=== PATIENT | female | born 1995 | race Caucasian/White ===

== ENCOUNTER 2016-07-26 10:52 | Emergency (ER) | payer OTHER ==
[~2016-07-26] VITALS: Ht 165.1 cm; Wt 61.3 kg
[~2016-07-26 10:52] MED LIST: IBUP-1050 PO
[2016-07-26 10:58] VITALS: Ht 165.1 cm; Wt 61.3 kg
[2016-07-26] MEDS ORDERED: BCPILLS PO (11:04)
[2016-07-26] MEDS ORDERED: ACETAMINOPHEN 500 MG TAB PO STA (11:08)
[2016-07-26] MEDS ORDERED: KETOROLAC TROMETHAMINE 30 MG/ML VIAL IV STA (11:08)
[2016-07-26] MEDS ORDERED: SODIUM CHLORIDE 0.9% 1000ML 1,000 ML IV STA (11:26)
--- NOTE | 2016-07-26 11:30 | DIAGNOSTIC IMAGING REPORT ---
CHEST ONE VIEW PORTABLE CLINICAL HISTORY: Chest pain. COMPARISON STUDY: Chest radiograph September 04, 2014. FINDINGS: Lung volumes are normal. Lungs are clear. There is no pneumothorax or pleural effusion. Cardiac size is normal. Mediastinal contours are normal. There is no evidence of pulmonary edema. IMPRESSION: No acute cardiopulmonary findings. Electronically signed by: Curly Bronson M.D. 07/26/2016 11:29 AM Dictated Date/Time: 07/26/2016 11:28 AM
[2016-07-26 11:43] VITALS: O2SAT 99
[2016-07-26 11:55] LABS: HEMATOCRIT 40.4 % (37-47); MEAN CELL VOLUME 93.3 fL (80-100); MEAN CORPUSCULAR HEMOGLOBIN 32.1 pg (25-34); MEAN CORPUSCULAR HGB CONC 34.4 g/dl (32-36); MEAN PLATELET VOLUME 9.6 fL (7.4-10.4); PLATELET COUNT 204 K/uL (130-400); RED BLOOD COUNT 4.33 M/uL (4.2-5.4); WHITE BLOOD COUNT 12.18 K/uL (4.8-10.8)
[2016-07-26 12:12] LABS: BASO % 0.1 %; BASO ABS # 0.01 K/uL (0-0.2); COMPLETE YES; IG% 0.2 %; LYMPH % 4.1 %; MONO % 3.4 %; NEUT % 92.2 %; TOXIC GRANULATION 1+
[2016-07-26 12:25] LABS: ALT/SGPT 22 U/L (12-78); AST/SGOT 19 U/L (15-37); BLOOD UREA NITROGEN 7 mg/dl (7-18); BUN/CREATININE RATIO 7.8 (10-20); CALCIUM 8.8 mg/dl (8.5-10.1); CARBON DIOXIDE 21 mmol/L (21-32); CHLORIDE 104 mmol/L (98-107); CREATININE 0.86 mg/dl (0.60-1.20); GLUCOSE 92 mg/dl (70-99); POTASSIUM 3.5 mmol/L (3.5-5.1); PREG INTERNAL NEGATIVE QC NEG CLEAR BACKGROUND; PREG INTERNAL POSITIVE QC POS CONTROL LINE; SODIUM 138 mmol/L (136-145)
[2016-07-26 12:30] LABS: ALKALINE PHOSPHATASE 43 U/L (45-117); CKMB/CK RATIO 0.6 (0-3.0)
[2016-07-26] MEDS ORDERED: OPTIRAY 320 IV PRN (13:00)
[2016-07-26 13:35] LABS: URINE APPEARANCE CLOUDY (CLEAR); URINE BILIRUBIN NEG (NEG); URINE COLOR YELLOW; URINE EPITHELIAL CELL AUTO >30 /lpf (0-5); URINE NITRITE NEG (NEG); URINE SPECIFIC GRAVITY 1.016 (1.000-1.030); UROBILINOGEN NEG (NEG); ZZUR CULT IF INDIC CLEAN CATCH YES
[2016-07-26 13:36] LABS: MANUAL MICROSCOPIC REQUIRED? NO; REVIEW REQ? NO
--- NOTE | 2016-07-26 13:55 | DIAGNOSTIC IMAGING REPORT ---
CT ANGIOGRAPHY OF THE CHEST, PULMONARY EMBOLUS PROTOCOL CLINICAL HISTORY: Left sided chest pain and fever. Oral contraceptives. COMPARISON STUDY: Chest CT March 20, 2013 and chest radiograph performed earlier today. TECHNIQUE: Following IV administration of 76 mL of Optiray-320, helical axial images of the chest were obtained utilizing the pulmonary embolus protocol. Maximal intensity projections and sagittal and coronal reformats were viewed on an independent 3D workstation. IV contrast was administered without complication. CT DOSE: 189.22 mGy.cm FINDINGS: No pulmonary emboli are identified although the segmental and subsegmental pulmonary arteries are suboptimally assessed due to respiratory motion. The size of the heart is normal. There is no evidence of thoracic aortic dissection. No consolidation is identified to suggest pneumonia. There is no pneumothorax or pleural effusion. The bony thorax and upper abdomen are unremarkable. No enlarged thoracic lymph nodes are present. IMPRESSION: 1. No pulmonary emboli identified although the segmental and subsegmental pulmonary arteries are suboptimally assessed due to respiratory motion. 2. No acute intrathoracic findings. No consolidation to suggest pneumonia. Electronically signed by: Curly Bronson M.D. 07/26/2016 1:53 PM Dictated Date/Time: 07/26/2016 1:45 PM
[2016-07-26 14:30] VITALS: O2SAT 99
[2016-07-26 15:43] VITALS: TEMP 37.2
[2016-07-26] MEDS ORDERED: OXYCODONE HCL IR 5 MG TAB (IMMEDIATE RELEASE) PO STA (15:57)
[2016-07-26] MEDS ORDERED: AMOX875T PO (16:00)
[2016-07-26] MEDS ORDERED: AMOXICILLIN/CLAVULANATE TAB 875 MG TAB PO ONE (16:00)
[2016-07-26] MEDS ORDERED: OXYCODONE IR HOME PACK PO ONE (16:00)
[2016-07-26 16:23] VITALS: BP 112/68; PULSE 108
--- NOTE | 2016-07-26 18:59 | EMERGENCY ROOM VISIT NOTE ---
History Report prepared by Marie: Uriel Grijalva Under the Supervision of: Dr. Neal Espinosa M.D. First contact with patient: 11:02 Chief Complaint: FEVER Stated Complaint: CHEST PAINS History of Present Illness The patient is a 21 year old female who presents to the Emergency Room with complaints of fever that began this morning. In triage, the patient's temperature was 103 F. The patient's symptoms began when she awoke. She states that yesterday she was fine and did not having any abnormal symptoms. She is experiencing left sided shoulder and under arm pain. She states that her pain worsens with deep breaths. Due to this, her breathing is labored. She rates her pain a 10/10. She has been having heat flashes and chills as well. She does not have any past medical history. She did not take any medications prior to arrival. The patient is on control. Her last menstrual cycle was in May. Patient denies LOC, headache, diaphoresis, visual changes, neck pain, nausea, vomiting, abdominal pain, back pain, melena, hematochezia, urinary symptoms, numbness, weakness, lymphadenopathy, rash, or other complaints. She denies any sick contacts. Source of History: patient Onset: this morning Position: other (global) Symptom Intensity: 103 F Quality: other (fever) Timing: other (persistent) Associated Symptoms: + chest pain (left shoulder and under arm), + chills Note: She is experiencing heat flashes as well. Review of Systems See HPI for pertinent positives and negatives. A total of ten systems were reviewed and were otherwise negative. Past Medical & Surgical Medical Problems: (1) ASTHMA, UNSPECIFIED (2) Pneumonia (3) Vertebral fracture, closed Family History FH: migraines FHx: CT (father) Gallbladder disease Heart disease Hypertension Kidney disease Kidney stones Social History Smoking Status: Current Some Day Smoker Smokeless Tobacco Use: No Alcohol Use: none Drug Use: none Marital Status: single Housing Status: lives with family Occupation Status: student Current/Historical Medications Scheduled Amoxicillin & Pot Clavulanate (Augmentin 875-125 mg), 875 MG PO BID Control Pills ( Control Pills), 1 TAB PO DAILY Allergies Coded Allergies: Azithromycin (Verified Allergy, Unknown, 07/26/16) Physical Exam Vital Signs Date Time Temp Pulse Resp B/P Pulse Ox O2 Delivery O2 Flow Rate FiO2 2/18/17 16:23 108 112/68 07/26/16 15:43 37.2 105 111/59 07/26/16 14:30 37.3 94 12 124/70 99 07/26/16 12:58 113 07/26/16 12:45 116 20 105/64 99 07/26/16 12:30 37.0 118 16 115/58 99 07/26/16 12:00 134 20 120/75 98 07/26/16 12:00 126 18 127/75 99 07/26/16 11:45 135 24 127/75 99 07/26/16 11:43 99 Room Air 07/26/16 11:43 99 Room Air 07/26/16 10:58 39.4 157 24 133/74 99 Room Air Physical Exam GENERAL: Awake, alert, uncomfortable appearing, in mild distress HENT: Normocephalic, atraumatic. Oropharynx unremarkable. EYES: Normal conjunctiva. Sclera non-icteric. NECK: Supple. No nuchal rigidity. FROM. No JVD. RESPIRATORY: Clear to auscultation. CARDIAC: Tachycardic but regular rate, normal rhythm. Extremities warm and well perfused. Pulses equal. ABDOMEN: Soft, non-distended. No tenderness to palpation. No rebound or guarding. No masses. RECTAL: Deferred. MUSCULOSKELETAL: Chest examination reveals moderate left sided tenderness. No obvious mastitis present. The back is symmetrical on inspection without obvious abnormality. There is no CVA tenderness to palpation. No joint edema. LOWER EXTREMITIES: Calves are equal size bilaterally and non-tender. No edema. No discoloration. NEURO: Normal sensorium. No sensory or motor deficits noted. SKIN: Blotching red patches on upper chest that were nontender. Medical Decision & Procedures ER Provider Diagnostic Interpretation: Radiology results are stated below per my review and radiologist interpretation: CHEST ONE VIEW PORTABLE CLINICAL HISTORY: Chest pain. COMPARISON STUDY: Chest radiograph September 04, 2014. FINDINGS: Lung volumes are normal. Lungs are clear. There is no pneumothorax or pleural effusion. Cardiac size is normal. Mediastinal contours are normal. There is no evidence of pulmonary edema. IMPRESSION: No acute cardiopulmonary findings. Electronically signed by: Curly Bronson M.D. 07/26/2016 11:29 AM Dictated Date/Time: 07/26/2016 11:[address] ANGIOGRAPHY OF THE CHEST, PULMONARY EMBOLUS PROTOCOL CLINICAL HISTORY: Left sided chest pain and fever. Oral contraceptives. COMPARISON STUDY: Chest CT March 20, 2013 and chest radiograph performed earlier today. TECHNIQUE: Following IV administration of 76 mL of Optiray-320, helical axial images of the chest were obtained utilizing the pulmonary embolus protocol. Maximal intensity projections and sagittal and coronal reformats were viewed on an independent 3D workstation. IV contrast was administered without complication. CT DOSE: 189.22 mGy.cm FINDINGS: No pulmonary emboli are identified although the segmental and subsegmental pulmonary arteries are suboptimally assessed due to respiratory motion. The size of the heart is normal. There is no evidence of thoracic aortic dissection. No consolidation is identified to suggest pneumonia. There is no pneumothorax or pleural effusion. The bony thorax and upper abdomen are unremarkable. No enlarged thoracic lymph nodes are present. IMPRESSION: 1. No pulmonary emboli identified although the segmental and subsegmental pulmonary arteries are suboptimally assessed due to respiratory motion. 2. No acute intrathoracic findings. No consolidation to suggest pneumonia. Electronically signed by: Curly Bronson M.D. 07/26/2016 1:53 PM Dictated Date/Time: 07/26/2016 1:45 PM Laboratory Results 07/26/16 11:40 Red Blood Count 4.33, Mean Corpuscular Volume 93.3, Mean Corpuscular Hemoglobin 32.1, Mean Corpuscular Hemoglobin Concent 34.4, Mean Platelet Volume 9.6, Neutrophils (%) (Auto) 92.2, Lymphocytes (%) (Auto) 4.1, Monocytes (%) (Auto) 3.4, Eosinophils (%) (Auto) 0.0, Basophils (%) (Auto) 0.1, Neutrophils # (Auto) 11.23, Lymphocytes # (Auto) 0.50, Monocytes # (Auto) 0.42, Eosinophils # (Auto) 0.00, Basophils # (Auto) 0.01 07/26/16 11:40 Test 07/26/16 00:00 07/26/16 11:40 Urine Color YELLOW Urine Appearance CLOUDY (CLEAR) Urine pH 5.0 (4.5-7.5) Urine Specific [place] 1.016 (1.000-1.030) Urine Protein NEG (NEG) Urine Glucose (UA) NEG (NEG) Urine Ketones NEG (NEG) Urine Occult Blood NEG (NEG) Urine Nitrite NEG (NEG) Urine Bilirubin NEG (NEG) Urine Urobilinogen NEG (NEG) Urine Leukocyte Esterase NEG (NEG) Urine WBC (Auto) 1-5 /hpf (0-5) Urine RBC (Auto) 5-10 /hpf (0-4) Urine Hyaline Casts (Auto) 1-5 /lpf (0-5) Urine Epithelial Cells (Auto) >30 /lpf (0-5) Urine Bacteria (Auto) 2+ (NEG) Influenza Type A Antigen Neg for Influ A (NEG) Influenza Type B Antigen Neg for Influ B (NEG) White Blood Count 12.18 K/uL (4.8-10.8) Red Blood Count 4.33 M/uL (4.2-5.4) Hemoglobin 13.9 g/dL (12.0-16.0) Hematocrit 40.4 % (37-47) Mean Corpuscular Volume 93.3 fL (80-100) Mean Corpuscular Hemoglobin 32.1 pg (25-34) Mean Corpuscular Hemoglobin Concent 34.4 g/dl (32-36) Platelet Count 204 K/uL (130-400) Mean Platelet Volume 9.6 fL (7.4-10.4) Neutrophils (%) (Auto) 92.2 % Lymphocytes (%) (Auto) 4.1 % Monocytes (%) (Auto) 3.4 % Eosinophils (%) (Auto) 0.0 % Basophils (%) (Auto) 0.1 % Neutrophils # (Auto) 11.23 K/uL (1.4-6.5) Lymphocytes # (Auto) 0.50 K/uL (1.2-3.4) Monocytes # (Auto) 0.42 K/uL (0.11-0.59) Eosinophils # (Auto) 0.00 K/uL (0-0.5) Basophils # (Auto) 0.01 K/uL (0-0.2) RDW Standard Deviation 42.2 fL (36.4-46.3) RDW Coefficient of Variation 12.4 % (11.5-14.5) Immature Granulocyte % (Auto) 0.2 % Immature Granulocyte # (Auto) 0.02 K/uL (0.00-0.02) Toxic Granulation 1+ Anion Gap 13.0 mmol/L (3-11) Est Creatinine Clear Calc Drug Dose 93.9 ml/min Estimated GFR () 112.7 Estimated GFR (Non- 97.3 BUN/Creatinine Ratio 7.8 (10-20) Calcium Level 8.8 mg/dl (8.5-10.1) Total Bilirubin 0.3 mg/dl (0.2-1) Direct Bilirubin < 0.1 mg/dl (0-0.2) Aspartate Amino Transf (AST/SGOT) 19 U/L (15-37) Alanine Aminotransferase (ALT/SGPT) 22 U/L (12-78) Alkaline Phosphatase 43 U/L (45-117) Total Creatine Kinase 160 U/L (26-192) Creatine Kinase MB 1.0 ng/ml (0.5-3.6) Creatine Kinase MB Ratio 0.6 (0-3.0) Troponin I < 0.015 ng/ml (0-0.045) Total Protein 7.6 gm/dl (6.4-8.2) Albumin 3.7 gm/dl (3.4-5.0) Lipase 213 U/L (73-393) Human Chorionic Gonadotropin, Qual NEG (NEG) Laboratory results reviewed by me Medications Administered Medications (Trade) Dose Ordered Sig/Mir Route Start Time Stop Time Status Last Admin Dose Admin Acetaminophen (Tylenol Tab) 1,000 mg NOW STAT PO 07/26/16 11:08 07/26/16 11:11 DC 07/26/16 11:42 1,000 MG Ketorolac Tromethamine 10 mg 10 mg NOW STAT IV 07/26/16 11:08 07/26/16 11:11 DC 07/26/16 11:42 10 MG Sodium Chloride (Nss 1000ml) 1,000 ml @ 999 mls/hr Q1H1M STAT IV 07/26/16 11:26 07/26/16 12:26 DC 07/26/16 11:42 999 MLS/HR Oxycodone HCl (Roxicodone Immediate Rel 5MG Home Pack) 1 homepack UD ONCE PO 07/26/16 16:00 07/26/16 16:01 DC 07/26/16 16:18 1 HOMEPACK Oxycodone HCl (Roxicodone Immediate Rel Tab) 5 mg NOW STAT PO 07/26/16 15:57 07/26/16 15:59 DC 07/26/16 15:57 5 MG Amoxicillin/ Clavulanate Potassium (Augmentin Tab) 875 mg ONE ONCE PO 07/26/16 16:00 07/26/16 16:01 DC 07/26/16 16:19 875 MG ECG Indication: chest pain Rate (beats per minute): 125 Rhythm: sinus tachycardia Findings: no acute ischemic change, no ectopy, other (No pericarditis) ED Course 1102: The patient was evaluated in room C6. A complete history and physical exam was performed. 1108: Toradol Inj 10 mg IV, Tylenol Tab 1000 mg PO 1126: Sodium Chloride 1000 ml @ 999 mls/hr IV 1250: The patient is feeling better. Her heart rate has improved. 1557: Oxycodone HCl 5 mg PO 1600: Amoxicillin/ Clavulanate Potassium 875 mg PO, Oxycodone HCl 1 homepack PO 1630: I reevaluated the patient. Discussed results and discharge instructions: She verbalized understanding and agreement. The patient is ready for discharge. Medical Decision Triage Nursing notes reviewed. The patient's presentation and history were concerning for fever and chest pain. Etiologies such as cardiac ischemia, aortic dissection, pulmonary embolism, pneumonia, pneumothorax, musculoskeletal, infections, gastrointestinal, cellulitis, mastitis, costochondritis, influenza, as well as others were entertained. The patient was evaluated. She was hydrated. She was given Tylenol and Toradol. On reassessment she had over 50% reduction in her symptoms. She felt much better. The patient had an unremarkable chest x-ray. CBC revealed a mild leukocytosis. The patient's panel, LFTs, lipase, test, and flu test were negative. The patient was reassessed. She was still symptomatic. The erythema on her chest wall was much improved as the fever decreased. Her chest wall was tender. The patient underwent CT imaging of her chest. There is no evidence of pneumonia, pneumothorax, or significant pulmonary embolism. There was some respiratory motion. The patient does not have any stigmata of DVT. Suspicion for PE is very low. There is no evidence of abscess or significant chest wall inflammation. There is no pericarditis on ECG. The patient has a normal cardiac troponin. Given the patient's symptoms with her white count, tachycardia, and fever I was concerned for a possible bacterial infection. I discussed conservative management with treatment including Augmentin and the patient felt comfortable. Given her pain there was some concern that this may increase again. I discussed a small amount of pain medication for her and the mother and patient were in agreement. She was given 5 mg of oxycodone now and one dose of Augmentin. She had a prescription for additional Augmentin and a oxycodone home pack was given. The patient will need close outpatient follow- up for further management. If she worsens in any way she will be back to the Emergency Room for reevaluation. By the evaluation outlined above other emergent etiologies such as those listed in the differential, as well as others, were deemed relatively unlikely. The patient and mother were informed about the findings as listed above. All questions were answered and they were pleased with the treatment. Return instructions were outlined and the patient was discharged in stable condition. The patient was referred to her PCP first thing this week for follow-up for a recheck of the current condition. The chart was completed utilizing [employer] Speech voice recognition software. Grammatical errors, random word insertions, pronoun errors, and incomplete sentences are an occasional consequence of this system due to software limitations, ambient noise, and hardware issues. Any formal questions or concerns about the content, text, or information contained within the body of this dictation should be directly addressed to the physician for clarification. [place] Drug Monitoring Program Search Results: patient reviewed within database, no issues identified Impression Primary Impression: Febrile illness Additional Impression: Left sided chest pain Scribe Attestation The scribe's documentation has been prepared under my direction and personally reviewed by me in its entirety. I confirm that the note above accurately reflects all work, treatment, procedures, and medical decision making performed by me. Departure Information Dispostion Home / Self-Care Prescriptions Amoxicillin & Pot Clavulanate (Augmentin 875-125 mg) 1 Tab Tab 875 MG PO BID for 7 Days, #14 TAB Prov: Neal Espinosa MD 07/26/16 Referrals Live Gillespie M.D. (PCP) Forms HOME CARE DOCUMENTATION FORM, IMPORTANT VISIT INFORMATION Patient Instructions My [facility] Additional Instructions Do not drive today because of medication received in the Emergency Room. Amoxicillin Clavulanate (Augmentin) 875mg: Take one pill twice daily for 7 days for your infection. All antibiotics can cause diarrhea. If this occurs and you feel worse or it does not resolve in 1-2 days follow up with your doctor or return to the Emergency Department as this could be signs of serious underlying problems. Any medication can cause an allergic reaction, stop the pills immediately and return to the ER for rash, hives, breathing difficulties, or swelling. Oxycodone (OxyIR) 5mg: Take 1-2 pills every four hours as needed for breakthrough pain. Avoid alcohol, operating machinery or dangerous equipment, working on ladders or roofs, DRIVING, or situations where being under the influence may be dangerous. It is recommended to use a stool softener such as Colace, 100mg twice daily while taking this medication to avoid constipation. Acetaminophen(Tylenol) may be used for fever or pain. Use 1000mg every six hours as needed. Avoid using more than 4000mg in a 24 hour period. AND/OR Ibuprofen(Motrin, Advil) may be used for fever or pain. Use 600mg every six hours as needed. Take with food. Avoid using more than 2400mg in a 24 hour period. Do not use 2400mg per day for more than three consecutive days without physician direction. Controlling your fever with Tylenol and Ibuprofen as above will make you feel better. Rest and drink plenty of fluids. Avoid strenuous activity until your symptoms resolve and your breathing returns to normal. Return to the ER for chest pain, difficulty breathing, persistent fevers, vomiting, worsening of your condition, or as needed. Follow up with your primary physician in 2-3 days for a recheck of the current condition. Problem Qualifiers
== END 2016-07-26 16:24 | disposition home or self-care (01) ==
LOC: C.EDB 10:54 → C.EDC 16:24
DX: R50.9 Fever, unspecified (principal); R07.9 Chest pain, unspecified; F17.200 Nicotine dependence, unspecified, uncomplicated; J45.909 Unspecified asthma, uncomplicated

== ENCOUNTER 2016-12-23 11:07 | Emergency (ER) | payer OTHER ==
[~2016-12-23] VITALS: Ht 165.1 cm; Wt 64.8 kg
[~2016-12-23 11:07] MED LIST changes: +BCPILLS PO; -IBUP-1050 PO
[2016-12-23 11:12] VITALS: TEMP 36.9; Ht 165.1 cm; Wt 64.8 kg
[2016-12-23] MEDS ORDERED: SODIUM CHLORIDE 0.9% 1000ML 1,000 ML IV STA (11:18)
[2016-12-23 11:48] LABS: BASO % 0.3 %; BASO ABS # 0.02 K/uL (0-0.2); COMPLETE YES; EOS % 1.1 %; HEMATOCRIT 40.4 % (37-47); IG% 0.2 %; LYMPH % 26.8 %; MEAN CELL VOLUME 95.3 fL (80-100); MEAN CORPUSCULAR HEMOGLOBIN 32.3 pg (25-34); MEAN CORPUSCULAR HGB CONC 33.9 g/dl (32-36); MEAN PLATELET VOLUME 9.1 fL (7.4-10.4); MONO % 11.2 %; NEUT % 60.4 %; PLATELET COUNT 232 K/uL (130-400); RED BLOOD COUNT 4.24 M/uL (4.2-5.4); WHITE BLOOD COUNT 6.34 K/uL (4.8-10.8)
[2016-12-23 11:57] LABS: PROTHROMBIN TIME (PATIENT) 10.5 SECONDS (9.0-12.0)
[2016-12-23 12:06] LABS: BUN/CREATININE RATIO 15.4 (10-20); CALCIUM 9.1 mg/dl (8.5-10.1); CREATININE 0.82 mg/dl (0.60-1.20); POTASSIUM 3.7 mmol/L (3.5-5.1)
[2016-12-23 12:27] LABS: THYROID STIMULATING HORMONE 1.63 uIu/ml (0.300-4.500)
--- NOTE | 2016-12-23 12:40 | DIAGNOSTIC IMAGING REPORT ---
PELVIC COMPLETE NON OB CLINICAL HISTORY: Pelvic pain/cramping/missed period COMPARISON STUDY: 04/14/2016 FINDINGS: The uterus measured 7.3 cm.. The endometrial stripe measured 7 mm. Small cystic focus measuring 5 mm at the fundal region unchanged. The right ovary measured maximum dimension 4.3 cm with several follicular cysts. Normal vascular flow. The left ovary measured 3.47 measures maximum dimension with normal vascular flow. Several small follicular cysts.. There is no ultrasonographic evidence of ovarian torsion. It should be noted that ovarian torsion can be present with normal Doppler ultrasonographic findings. IMPRESSION: Small bilateral ovarian follicular cysts. Unchanging 5 mm cystic focus within the uterine fundus unchanged compared to prior exams. No acute or interval finding The above report was generated using voice recognition software. It may contain grammatical, syntax or spelling errors. Electronically signed by: Fausto Kelsey M.D. 12/23/2016 12:39 PM Dictated Date/Time: 12/23/2016 12:37 PM
[2016-12-23] MEDS ORDERED: KETOROLAC TROMETHAMINE 30 MG/ML VIAL IV STA (12:43)
[2016-12-23 12:58] LABS: URINE APPEARANCE CLEAR (CLEAR); URINE BILIRUBIN NEG (NEG); URINE COLOR YELLOW; URINE EPITHELIAL CELL AUTO >30 /lpf (0-5); URINE NITRITE NEG (NEG); URINE PH 5.5 (4.5-7.5); URINE SPECIFIC GRAVITY 1.027 (1.000-1.030); UROBILINOGEN NEG (NEG); ZZUR CULT IF INDIC CLEAN CATCH YES
[2016-12-23 13:05] LABS: MANUAL MICROSCOPIC REQUIRED? NO; REVIEW REQ? NO
[2016-12-23 13:52] VITALS: BP 101/68; PULSE 63; O2SAT 99
--- NOTE | 2016-12-23 15:59 | EMERGENCY ROOM VISIT NOTE ---
History First contact with patient: 11:15 Chief Complaint: ABDOMINAL PAIN Stated Complaint: HOT FLASHES, CRAMPS, MISSED PERIOD Nursing Triage Summary: Pt presents with lower abd pain for a couple days. Hot flashes for the past couple weeks. Nausea. States menstrual cycle is a week late. Took a preg test a couple days ago that was negative. Denies vaginal bleeding/discharge. History of Present Illness The patient is a 21 year old female who presents to the Emergency Room with complaints of pelvic cramping, hot flashes and a missed period. The patient reports that her symptoms started approximately 2 months ago with intermittent hot flashes. The patient reports that she has been on oral contraceptives for the past year, but stopped them in July because of weight gain. The patient reports that her last menstruation was due one week ago. She denies any prior history of irregular menses. The patient is sexually active and cannot rule out , however reports that she had a negative urine test one week ago. She also spotted 2 weeks ago. OB history is A1 with a spontaneous at 6 months gestation. She follows with the [facility] [facility] office. She did try to call them yesterday and they cannot get her in for an appointment until mid-February. She was instructed to come to the emergency department for further evaluation. She currently rates her discomfort a 7 out of 10. The pain is not worsened with ambulation. She denies any other vaginal drainage, diarrhea or unusual urinary symptoms. Review of Systems HEENT: Denies dizziness, visual problems, hearing loss, tinnitus. Denies difficulty swallowing or oral lesions. PULMONARY: Denies cough, shortness of breath, sputum production or hemoptysis. CARDIOVASCULAR: Denies chest pain, palpitations, dyspnea on exertion, orthopnea or peripheral edema. GASTROINTESTINAL: Denies diarrhea, constipation, nausea or vomiting. She denies any upper abdominal pain. GENITOURINARY: Denies dysuria, frequency, urgency or nocturia. Otherwise see history of present illness. NEUROLOGIC: Denies history of epilepsy, CVA, TIA or chronic headaches. MUSCULOSKELETAL: Denies history of joint tenderness/swelling. SKIN: Denies rashes or lesions. PSYCHIATRIC: Denies history of depression or mental illness. ENDOCRINE: Denies history of diabetes or thyroid disorders. Past Medical/Surgical History Medical Problems: (1) ASTHMA, UNSPECIFIED (2) Pneumonia (3) Vertebral fracture, closed Family History FH: migraines FHx: [place] (father) Gallbladder disease Heart disease Hypertension Kidney disease Kidney stones Social History Smoking Status: Current Every Day Smoker Alcohol Use: none Drug Use: none Marital Status: single Housing Status: lives with family Occupation Status: student Current/Historical Medications No Active Prescriptions or Reported Meds Allergies Coded Allergies: Azithromycin (Verified Allergy, Unknown, 12/23/16) Physical Exam Vital Signs Date Time Temp Pulse Resp B/P (MAP) Pulse Ox O2 Delivery O2 Flow Rate FiO2 12/23/16 13:52 63 18 101/68 99 12/23/16 12:52 72 16 117/65 96 Room Air 12/23/16 11:12 36.9 100 18 122/91 96 Room Air Physical Exam CONSTITUTIONAL: Healthy and well nourished. Alert and oriented X 3 with positive affect. She does not appear acutely ill or toxic, nor does she appear in any acute distress. HEENT: Normocephalic, atraumatic. Pupils equal, round and reactive. Ears and nares are clear. No conjunctival injection or pallor. No scleral icterus. NECK: Full active range of motion without discomfort. RESPIRATORY: Clear to auscultation bilaterally with no wheezing, crackles, rhonchi or stridor. CARDIOVASCULAR: Regular rate and rhythm with no murmurs, rubs or gallops. GASTROINTESTINAL: Bowel sounds present in all quadrants. Patient has minimal suprapubic tenderness to palpation. Negative CVA tenderness. Negative McBurney 's point tenderness. No abdominal rigidity, guarding or rebound. MUSCULOSKELETAL: Full range of motion of all joints without discomfort. Range of motion of the hips does not cause any discomfort. INTEGUMENTARY: No rash or other significant dermatologic conditions noted. HEMATOLOGIC: No ecchymosis or petechiae noted. NEUROLOGIC: No focal neurologic deficits noted. Medical Decision & Procedures ER Provider Diagnostic Interpretation: Pelvic ultrasound did not show any acute findings: PELVIC COMPLETE NON OB CLINICAL HISTORY: Pelvic pain/cramping/missed period COMPARISON STUDY: 04/14/2016 FINDINGS: The uterus measured 7.3 cm.. The endometrial stripe measured 7 mm. Small cystic focus measuring 5 mm at the fundal region unchanged. The right ovary measured maximum dimension 4.3 cm with several follicular cysts. Normal vascular flow. The left ovary measured 3.47 measures maximum dimension with normal vascular flow. Several small follicular cysts.. There is no ultrasonographic evidence of ovarian torsion. It should be noted that ovarian torsion can be present with normal Doppler ultrasonographic findings. IMPRESSION: Small bilateral ovarian follicular cysts. Unchanging 5 mm cystic focus within the uterine fundus unchanged compared to prior exams. No acute or interval finding Laboratory Results 12/23/16 11:35 Red Blood Count 4.24, Mean Corpuscular Volume 95.3, Mean Corpuscular Hemoglobin 32.3, Mean Corpuscular Hemoglobin Concent 33.9, Mean Platelet Volume 9.1, Neutrophils (%) (Auto) 60.4, Lymphocytes (%) (Auto) 26.8, Monocytes (%) (Auto) 11.2, Eosinophils (%) (Auto) 1.1, Basophils (%) (Auto) 0.3, Neutrophils # (Auto ) 3.83, Lymphocytes # (Auto) 1.70, Monocytes # (Auto) 0.71, Eosinophils # (Auto ) 0.07, Basophils # (Auto) 0.02 12/23/16 11:35 Test 12/23/16 11:31 12/23/16 11:35 Urine Color YELLOW Urine Appearance CLEAR (CLEAR) Urine pH 5.5 (4.5-7.5) Urine Specific [place] 1.027 (1.000-1.030) Urine Protein NEG (NEG) Urine Glucose (UA) NEG (NEG) Urine Ketones NEG (NEG) Urine Occult Blood NEG (NEG) Urine Nitrite NEG (NEG) Urine Bilirubin NEG (NEG) Urine Urobilinogen NEG (NEG) Urine Leukocyte Esterase SMALL (NEG) Urine WBC (Auto) 10-30 /hpf (0-5) Urine RBC (Auto) 0-4 /hpf (0-4) Urine Hyaline Casts (Auto) 5-10 /lpf (0-5) Urine Epithelial Cells (Auto) >30 /lpf (0-5) Urine Bacteria (Auto) 1+ (NEG) Urine Test NEG (NEG) White Blood Count 6.34 K/uL (4.8-10.8) Red Blood Count 4.24 M/uL (4.2-5.4) Hemoglobin 13.7 g/dL (12.0-16.0) Hematocrit 40.4 % (37-47) Mean Corpuscular Volume 95.3 fL (80-100) Mean Corpuscular Hemoglobin 32.3 pg (25-34) Mean Corpuscular Hemoglobin Concent 33.9 g/dl (32-36) Platelet Count 232 K/uL (130-400) Mean Platelet Volume 9.1 fL (7.4-10.4) Neutrophils (%) (Auto) 60.4 % Lymphocytes (%) (Auto) 26.8 % Monocytes (%) (Auto) 11.2 % Eosinophils (%) (Auto) 1.1 % Basophils (%) (Auto) 0.3 % Neutrophils # (Auto) 3.83 K/uL (1.4-6.5) Lymphocytes # (Auto) 1.70 K/uL (1.2-3.4) Monocytes # (Auto) 0.71 K/uL (0.11-0.59) Eosinophils # (Auto) 0.07 K/uL (0-0.5) Basophils # (Auto) 0.02 K/uL (0-0.2) RDW Standard Deviation 44.5 fL (36.4-46.3) RDW Coefficient of Variation 12.8 % (11.5-14.5) Immature Granulocyte % (Auto) 0.2 % Immature Granulocyte # (Auto) 0.01 K/uL (0.00-0.02) Prothrombin Time 10.5 SECONDS (9.0-12.0) Prothromb Time International Ratio 1.0 (0.9-1.1) Activated Partial Thromboplast Time 27.1 SECONDS (21.0-31.0) Partial Thromboplastin Ratio 1.0 Anion Gap 6.0 mmol/L (3-11) Est Creatinine Clear Calc Drug Dose 98.5 ml/min Estimated GFR () 119.4 Estimated GFR (Non- 103.0 BUN/Creatinine Ratio 15.4 (10-20) Calcium Level 9.1 mg/dl (8.5-10.1) Total Bilirubin 0.4 mg/dl (0.2-1) Direct Bilirubin 0.1 mg/dl (0-0.2) Aspartate Amino Transf (AST/SGOT) 26 U/L (15-37) Alanine Aminotransferase (ALT/SGPT) 38 U/L (12-78) Alkaline Phosphatase 67 U/L (45-117) Total Protein 7.2 gm/dl (6.4-8.2) Albumin 3.7 gm/dl (3.4-5.0) Thyroid Stimulating Hormone (TSH) 1.630 uIu/ml (0.300-4.500) Human Chorionic Gonadotropin, Quant < 1 mIU/mL The above labs were reviewed and were grossly normal. Quantitative beta hCG was negative. TSH is also normal. Urinalysis shows a contaminated sample, and cultures are pending. Medications Administered Medications (Trade) Dose Ordered Sig/Mir Route Start Time Stop Time Status Last Admin Dose Admin Sodium Chloride 1,000 ml @ 999 mls/hr Q1H1M STAT IV 12/23/16 11:18 12/23/16 12:18 DC 12/23/16 11:18 999 MLS/HR Ketorolac Tromethamine (Toradol Inj) 30 mg NOW STAT IV 12/23/16 12:43 12/23/16 12:44 DC 12/23/16 12:50 30 MG ED Course Patient history and physical exam were performed. Nurse's notes were reviewed. Vital signs were reviewed and normal. IV access was established, and labs were drawn. The patient was hydrated with a liter normal saline. She initially refused any analgesics. Review of labs does not show any significant findings. Quantitative beta hCG was negative, and the patient is euthyroid. The patient is also not anemic. Urinalysis is not suggestive of infection. Pelvic ultrasound was also normal and unchanged from her previous ultrasound. Review medical records shows that the patient has been here multiple times in the past with similar symptoms. 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 I also encouraged her to follow-up with her PCP to discuss other possible etiologies for her symptoms, including the possibility of an endocrinology referral. The patient is welcome to return to the emergency department for any progressively worsening symptoms, but otherwise advised that additional workup is best done in the outpatient setting. The patient was encouraged to take ibuprofen and Tylenol as needed for pain. Both the patient and mother were happy with plan of care, and the patient denied any significant discomfort at the time of discharge. Her mother did request that I give her some additional Zofran prior to discharge, and was ordered Zofran 4 mg IVP prior to discharge. Medical Decision Patient presents with complaint of pelvic pain. She has had a history of chronic pelvic pain per review of prior medical records. Her ultrasound and labs today were normal. The patient reports that she did miss her period, suggestive of gynecological etiology. Her quantitative beta hCG is negative, therefore I do not suspect ectopic . Ultrasound is not suggestive of ovarian torsion, although ultrasound cannot entirely were well torsion. The patient does not have significant discomfort, therefore I feel that torsion is unlikely. GI etiologies were also entertained. Impression Primary Impression: Pelvic pain Additional Impression: Hot flashes Departure Information Prescriptions No Active Prescriptions or Reported Meds Referrals Live Gillespie M.D. (PCP) Patient Instructions My [facility] Health Problem Qualifiers
== END 2016-12-23 13:53 | disposition home or self-care (01) ==
LOC: C.EDB 11:09 → C.EDC 13:53
DX: R10.2 Pelvic and perineal pain (principal); G89.29 Other chronic pain; J45.909 Unspecified asthma, uncomplicated; Z87.01 Personal history of pneumonia (recurrent); Z82.49 Family history of ischemic heart disease and other diseases of the circulatory system; Z84.1 Family history of disorders of kidney and ureter; F17.210 Nicotine dependence, cigarettes, uncomplicated

== ENCOUNTER 2017-02-22 17:26 | Emergency (ER) | payer OTHER ==
[~2017-02-22] VITALS: Ht 165.1 cm; Wt 64.0 kg
[2017-02-22 17:32] VITALS: Ht 165.1 cm; Wt 64.0 kg
[2017-02-22] MEDS ORDERED: KETOROLAC TROMETHAMINE 30 MG/ML VIAL IV STA (17:55)
[2017-02-22 18:09] LABS: URINE APPEARANCE TURBID (CLEAR); URINE BILIRUBIN NEG (NEG); URINE COLOR YELLOW; URINE EPITHELIAL CELL AUTO >30 /lpf (0-5); URINE NITRITE NEG (NEG); URINE PH >= 9.0 (4.5-7.5); URINE SPECIFIC GRAVITY 1.021 (1.000-1.030); UROBILINOGEN NEG (NEG)
[2017-02-22 18:14] LABS: MANUAL MICROSCOPIC REQUIRED? NO; REVIEW REQ? YES
[2017-02-22 18:26] LABS: BASO % 0.1 %; BASO ABS # 0.01 K/uL (0-0.2); COMPLETE YES; EOS % 0.9 %; HEMATOCRIT 43.4 % (37-47); IG% 0.1 %; LYMPH % 20.7 %; MEAN CELL VOLUME 96.2 fL (80-100); MEAN CORPUSCULAR HEMOGLOBIN 31.9 pg (25-34); MEAN CORPUSCULAR HGB CONC 33.2 g/dl (32-36); MEAN PLATELET VOLUME 9.7 fL (7.4-10.4); MONO % 6.2 %; PLATELET COUNT 246 K/uL (130-400); RED BLOOD COUNT 4.51 M/uL (4.2-5.4); WHITE BLOOD COUNT 6.76 K/uL (4.8-10.8)
[2017-02-22 18:44] LABS: ALT/SGPT 30 U/L (12-78); AST/SGOT 20 U/L (15-37); BLOOD UREA NITROGEN 10 mg/dl (7-18); CALCIUM 9.2 mg/dl (8.5-10.1); CARBON DIOXIDE 28 mmol/L (21-32); CHLORIDE 107 mmol/L (98-107); CREATININE 0.74 mg/dl (0.60-1.20); GLUCOSE 93 mg/dl (70-99); POTASSIUM 3.9 mmol/L (3.5-5.1); SODIUM 141 mmol/L (136-145)
[2017-02-22 18:46] LABS: ALKALINE PHOSPHATASE 75 U/L (45-117)
[2017-02-22 19:22] VITALS: BP 125/76; PULSE 80; O2SAT 98
--- NOTE | 2017-02-22 20:13 | EMERGENCY ROOM VISIT NOTE ---
History Report prepared by Marie: Helen Costa Under the Supervision of: Dr. Brian Frederick M.D. First contact with patient: 17:46 Chief Complaint: ABDOMINAL PAIN Stated Complaint: ABD PAIN,FEVER,NAUSEA History of Present Illness The patient is a 22 year old female who presents to the Emergency Room with complaints of worsening left pelvic pain for the past 2 weeks. The patient has had pelvic pain for the past 1.5 years. She was seen in the ED 2 months ago and found to have cysts in her ovaries. She has had a laparoscopy by her manager domestic which found scar tissue. In the past 2 weeks, her pain has worsened. She does not identify anything that triggers or relieves her pain. The pain is the same as her previous pain, but worse. She has had a fever of 101 , nausea, and some diarrhea. She denies any cold symptoms, urinary symptoms, vomiting, pelvic bleeding, pelvic discharge, or bloody stools. She missed her last period and just had some spotting. Her last period was 2 months ago. Her periods have been irregular in the past. She has tried taking control which did not work to regulate her periods. She is sexually active. She had chlamydia 2 years ago. She has not had any unprotected sex since. She has had hot flashes and has an appointment with endocrinology coming up. She also has a appointment with gynecology in 2 days. Source of History: patient Onset: 2 weeks Position: pelvis (left) Quality: other (pain) Timing: worsening Associated Symptoms: + fevers, + nausea, + diarrhea, No vomiting, No hematochezia, No urinary symptoms Note: Pt denies cold symptoms, pelvic bleeding/discharge. Review of Systems See HPI for pertinent positives & negatives. A total of 10 systems reviewed and were otherwise negative. Past Medical & Surgical Medical Problems: (1) ASTHMA, UNSPECIFIED (2) Pneumonia (3) Vertebral fracture, closed Family History FH: migraines FHx: [place] (father) Gallbladder disease Heart disease Hypertension Kidney disease Kidney stones Social History Smoking Status: Current Every Day Smoker Alcohol Use: none Drug Use: none Marital Status: single Housing Status: lives with family Occupation Status: student Current/Historical Medications No Active Prescriptions or Reported Meds Allergies Coded Allergies: Azithromycin (Verified Allergy, Unknown, 02/22/17) Physical Exam Vital Signs Date Time Temp Pulse Resp B/P (MAP) Pulse Ox O2 Delivery O2 Flow Rate FiO2 02/22/17 19:22 80 18 125/76 98 02/22/17 17:32 37.1 116 20 126/76 99 Room Air Physical Exam Constitutional: Vital signs reviewed. Eyes: Pupils are equal round reactive to light. Conjunctiva are noninjected. ENT: Pharynx is clear without erythema or exudate. Mucous membranes are moist. Neck supple without meningeal signs. Respiratory: Clear to auscultation bilaterally. Breath sounds are equal bilaterally. Cardiovascular: Regular rate and rhythm. No rubs or gallops. GI: Soft, nondistended. Bowel sounds are present. Mild left pelvic tenderness. Pelvic: Mild left adnexal tenderness without fullness. No right sided or uterine tenderness. No CMT. No abnormal discharge or bleeding. Musculoskeletal: No peripheral edema. No lower extremity tenderness. Integumentary: No cyanosis. Neurological: The patient is awake and alert. No focal deficits. Psychiatric: Normal affect. Medical Decision & Procedures Laboratory Results 02/22/17 18:15 Red Blood Count 4.51, Mean Corpuscular Volume 96.2, Mean Corpuscular Hemoglobin 31.9, Mean Corpuscular Hemoglobin Concent 33.2, Mean Platelet Volume 9.7, Neutrophils (%) (Auto) 72.0, Lymphocytes (%) (Auto) 20.7, Monocytes (%) (Auto) 6.2, Eosinophils (%) (Auto) 0.9, Basophils (%) (Auto) 0.1, Neutrophils # (Auto) 4.86, Lymphocytes # (Auto) 1.40, Monocytes # (Auto) 0.42, Eosinophils # (Auto) 0.06, Basophils # (Auto) 0.01 02/22/17 18:15 Test 02/22/17 18:00 02/22/17 18:15 02/22/17 19:06 Urine Color YELLOW Urine Appearance TURBID (CLEAR) Urine pH >= 9.0 (4.5-7.5) Urine Specific [place] 1.021 (1.000-1.030) Urine Protein NEG (NEG) Urine Glucose (UA) NEG (NEG) Urine Ketones NEG (NEG) Urine Occult Blood NEG (NEG) Urine Nitrite NEG (NEG) Urine Bilirubin NEG (NEG) Urine Urobilinogen NEG (NEG) Urine Leukocyte Esterase NEG (NEG) Urine WBC (Auto) 1-5 /hpf (0-5) Urine RBC (Auto) 0-4 /hpf (0-4) Urine Hyaline Casts (Auto) 1-5 /lpf (0-5) Urine Epithelial Cells (Auto) >30 /lpf (0-5) Urine Bacteria (Auto) 2+ (NEG) Urine Crystals (NONE PRSENT) Urine Test NEG (NEG) White Blood Count 6.76 K/uL (4.8-10.8) Red Blood Count 4.51 M/uL (4.2-5.4) Hemoglobin 14.4 g/dL (12.0-16.0) Hematocrit 43.4 % (37-47) Mean Corpuscular Volume 96.2 fL (80-100) Mean Corpuscular Hemoglobin 31.9 pg (25-34) Mean Corpuscular Hemoglobin Concent 33.2 g/dl (32-36) Platelet Count 246 K/uL (130-400) Mean Platelet Volume 9.7 fL (7.4-10.4) Neutrophils (%) (Auto) 72.0 % Lymphocytes (%) (Auto) 20.7 % Monocytes (%) (Auto) 6.2 % Eosinophils (%) (Auto) 0.9 % Basophils (%) (Auto) 0.1 % Neutrophils # (Auto) 4.86 K/uL (1.4-6.5) Lymphocytes # (Auto) 1.40 K/uL (1.2-3.4) Monocytes # (Auto) 0.42 K/uL (0.11-0.59) Eosinophils # (Auto) 0.06 K/uL (0-0.5) Basophils # (Auto) 0.01 K/uL (0-0.2) RDW Standard Deviation 42.5 fL (36.4-46.3) RDW Coefficient of Variation 12.1 % (11.5-14.5) Immature Granulocyte % (Auto) 0.1 % Immature Granulocyte # (Auto) 0.01 K/uL (0.00-0.02) Anion Gap 6.0 mmol/L (3-11) Est Creatinine Clear Calc Drug Dose 108.2 ml/min Estimated GFR () 134.2 Estimated GFR (Non- 115.8 BUN/Creatinine Ratio 13.0 (10-20) Calcium Level 9.2 mg/dl (8.5-10.1) Total Bilirubin 0.3 mg/dl (0.2-1) Direct Bilirubin < 0.1 mg/dl (0-0.2) Aspartate Amino Transf (AST/SGOT) 20 U/L (15-37) Alanine Aminotransferase (ALT/SGPT) 30 U/L (12-78) Alkaline Phosphatase 75 U/L (45-117) Total Protein 7.7 gm/dl (6.4-8.2) Albumin 3.9 gm/dl (3.4-5.0) Lipase 236 U/L (73-393) Laboratory results as reviewed by me. Medications Administered Medications (Trade) Dose Ordered Sig/Mir Route Start Time Stop Time Status Last Admin Dose Admin Ketorolac Tromethamine (Toradol Inj) 10 mg NOW STAT IV 02/22/17 17:55 02/22/17 17:56 DC 02/22/17 18:25 10 MG ED Course 1748: The patient was evaluated in room C10. A complete history and physical exam was performed. 1754: Toradol Inj 10 mg IV. 1900: I performed a pelvic exam in the presence of a female nurse billing manager. Findings are listed in the physical exam above. She is feeling slightly better. I discussed the test results with her. She verbalized agreement of the treatment plan. She will follow up with her doctor on Thursday as scheduled. She was discharged home. Medical Decision This is a 22-year-old female presents with pelvic pain. Differential diagnosis includes chronic pain syndrome, ovarian cyst, ovarian torsion, PID, ectopic , endometriosis. I did perform a limited focused review of portions of the patient's old chart on the electronic medical record. The patient was here December 23 for abdominal pain, hot flashes, and missed period at that time. Ultrasound showed bilateral follicular cysts in the ovaries. Provider noted that she has a history of chronic pain in her pelvis. I did evaluate the patient as noted above. The patient has some mild pelvic pain. She has had similar pain for the past year and a half. It has gotten worse over the past 2 weeks. She also states she's developed a fever. IV access was established. I did order and personally review the patient's urinalysis as described above. There is bacteria but lots of epithelial cells. No other signs of infection. A urine culture was sent as the patient does not have any urinary symptoms. I did order and review the patient's blood work as noted in the electronic medical record. Her white blood cell count is not elevated. I did perform a pelvic examination which was unremarkable other than some mild left adnexal tenderness. At this time the patient shows no signs of any acute surgical process such as torsion. I did treat the patient with Toradol IV. She does states she has had some mild relief with the Toradol. I did recommend anti-inflammatories at home and to follow up with her REPULPING SUPERVISOR doctor in 2 days per her appointment. Medication Reconcilliation Current Medication List: was personally reviewed by me Blood Pressure Screening Patient's blood pressure: Elevated blood pressure Blood pressure disposition: Elevated BP felt to be situational Impression Primary Impression: Pelvic pain Scribe Attestation The scribe's documentation has been prepared under my direct and personally reviewed by me in its entirety. I confirm that the note above accurately reflects all work, treatment, procedures, and medical decision making performed by me. Departure Information Dispostion Home / Self-Care Prescriptions No Active Prescriptions or Reported Meds Referrals Live Gillespie M.D. (PCP) Forms HOME CARE DOCUMENTATION FORM, IMPORTANT VISIT INFORMATION Patient Instructions ED Pelvic Pain [facility], [facility] Additional Instructions You have been examined and treated today on an emergency basis only. This is not a substitute for, or an effort to provide, complete comprehensive medical care. It is impossible to recognize and treat all injuries or illnesses in a single emergency department visit. It is therefore important that you follow up closely with your physician per your appointment on Thursday. Return for worsening symptoms or if you develop recurrent fever, vomiting, or any other concerning symptoms.
[2017-02-24 21:51] LABS: CHLAMYDIA TRACH RNA*** DETECTED (NOT DETECTED); GC (NEIS GONORRHOEAE)RNA** NOT DETECTED (NOT DETECTED)
--- NOTE | 2017-02-26 15:50 | Pharmacy Progress Note ---
ED Pharmacist Culture FollowUp Date of Service: Feb 26, 2017. Called patient regarding positive chlamydia result and left a message to return call as soon as possible. After discussing with Dr. Frederick can call in a prescription for doxycycline 100mg BID X 10 days upon talking to the patient and confirming the pharmacy. Other things to discuss when the patient calls back are the importance of follow up with janitorial tech physician and testing for HIV and syphillis.
== END 2017-02-22 19:22 | disposition home or self-care (01) ==
LOC: C.EDB 17:27 → C.EDC 19:22
DX: R10.2 Pelvic and perineal pain (principal); R50.9 Fever, unspecified; R11.0 Nausea; R19.7 Diarrhea, unspecified; N83.01 Follicular cyst of right ovary; N83.02 Follicular cyst of left ovary; J45.909 Unspecified asthma, uncomplicated; F17.200 Nicotine dependence, unspecified, uncomplicated; Z82.49 Family history of ischemic heart disease and other diseases of the circulatory system; Z84.1 Family history of disorders of kidney and ureter; Z82.0 Family history of epilepsy and other diseases of the nervous system

== ENCOUNTER → 2017-03-06 | Outpatient (CLI) | payer OTHER ==
[2017-03-06 13:09] LABS: BASO % 0.2 %; BASO ABS # 0.01 K/uL (0-0.2); COMPLETE YES; EOS % 1.6 %; HEMATOCRIT 44.2 % (37-47); IG% 0.2 %; LYMPH ABS # 1.67 K/uL (1.2-3.4); MEAN CELL VOLUME 96.5 fL (80-100); MEAN CORPUSCULAR HEMOGLOBIN 32.5 pg (25-34); MEAN CORPUSCULAR HGB CONC 33.7 g/dl (32-36); MONO % 8.1 %; NEUT % 63.9 %; PLATELET COUNT 277 K/uL (130-400); RED BLOOD COUNT 4.58 M/uL (4.2-5.4); WHITE BLOOD COUNT 6.42 K/uL (4.8-10.8)
[2017-03-06 13:35] LABS: ALT/SGPT 35 U/L (12-78); AST/SGOT 20 U/L (15-37); BLOOD UREA NITROGEN 12 mg/dl (7-18); BUN/CREATININE RATIO 15.8 (10-20); CARBON DIOXIDE 25 mmol/L (21-32); CHLORIDE 106 mmol/L (98-107); CREATININE 0.75 mg/dl (0.60-1.20); GLUCOSE 82 mg/dl (70-99); POTASSIUM 3.8 mmol/L (3.5-5.1); SODIUM 139 mmol/L (136-145)
[2017-03-06 13:46] LABS: ALB/GLOB RATIO 1.1 (0.9-2); ALKALINE PHOSPHATASE 87 U/L (45-117); THYROID STIMULATING HORMONE 0.348 uIu/ml (0.300-4.500)
[2017-03-06 15:00] LABS: T3 TOTAL 1.25 ng/ml (0.60-1.81)
== END | disposition home or self-care (01) ==
LOC: C.LAB1850 09:52
PROVIDERS: ATTEND Internal Medicine Endocrinology, Diabetes & Metabolism
DX: N92.6 Irregular menstruation, unspecified (principal); R23.2 Flushing; E04.9 Nontoxic goiter, unspecified

== ENCOUNTER → 2017-03-16 | Outpatient (CLI) | payer OTHER ==
[2017-03-19 16:28] LABS: NORMETANEPHRINE PLASMA 74 pg/mL (<=148); TOTAL METANEPHRINE PLASMA 74 pg/mL (<=205)
== END | disposition home or self-care (01) ==
LOC: C.LAB1850 12:40
PROVIDERS: ATTEND Internal Medicine Endocrinology, Diabetes & Metabolism
DX: R23.2 Flushing (principal)

== ENCOUNTER → 2017-03-31 | Outpatient (CLI) | payer OTHER ==
[2017-03-31 16:13] LABS: CHOLESTEROL/HDL RATIO 2.3
[2017-03-31 16:36] LABS: CALCULATED INSULIN SENSITIVITY 0.323; GLUCOSE LOG 1.9868; INSULIN LOG 1.1139
== END | disposition home or self-care (01) ==
LOC: C.LAB1850 13:59
PROVIDERS: ATTEND Internal Medicine Endocrinology, Diabetes & Metabolism
DX: N92.6 Irregular menstruation, unspecified (principal); E16.1 Other hypoglycemia

== ENCOUNTER 2017-05-02 06:33 | Emergency (ER) | payer OTHER ==
[~2017-05-02] VITALS: Ht 165.1 cm; Wt 66.8 kg
[2017-05-02 06:35] VITALS: TEMP 36.8; Ht 165.1 cm; Wt 66.8 kg
[2017-05-02] MEDS ORDERED: IBUP600T44 PO (06:45)
[2017-05-02] MEDS ORDERED: HYDR-5688 PO (06:45)
[2017-05-02] MEDS ORDERED: IBUPROFEN 600 MG TAB PO STA (06:46)
[2017-05-02] MEDS ORDERED: VALA500T60 PO (06:47)
[2017-05-02] MEDS ORDERED: OXYCODONE/ACETAMINOPHEN 5-325 TAB PO ONE (07:00)
[2017-05-02] MEDS ORDERED: OXYC-57 PO (07:01)
--- NOTE | 2017-05-02 07:07 | EMERGENCY ROOM VISIT NOTE ---
History Report prepared by Marie: Violeta Choi Under the Supervision of: Dr. Davi Thomas M.D. First contact with patient: 06:40 Chief Complaint: ANKLE PAIN Stated Complaint: ROLLED LEFT ANKLE,SWOLLEN PAIN History of Present Illness The patient is a 22 year old female who presents to the Emergency Room with complaints of persistent left ankle pain that began 2.5 hours [employer]. She reports she rolled her left ankle when she missed a step checking her mail this morning. She admits she was wearing high heeled boots during the incident. She rates her pain 10/10 severity. Movement exacerbates her pain. She notes that she has not taken any medications for the pain. Her Mother states she has seen [facility] in the past. Source of History: patient, parent Onset: 2.5 hours ago Position: ankle (left) Symptom Intensity: 10/10 Timing: other (persistent) Modifying Factors (Worsening): movement Review of Systems See HPI for pertinent positives & negatives. A total of 10 systems reviewed and were otherwise negative. Past Medical & Surgical Medical Problems: (1) Alcohol intoxication (2) ASTHMA, UNSPECIFIED (3) Constipation (4) Palpitations (5) Pneumonia (6) Vertebral fracture, closed Surgical Problems: (1) History of laparoscopy (2) Hx of tonsillectomy Family History Diabetes mellitus FH: migraines FHx: [place] (father) Gallbladder disease Heart disease Hypertension Kidney disease Kidney stones Lung disease Social History Smoking Status: Current Every Day Smoker Alcohol Use: occasionally Drug Use: none Marital Status: single Housing Status: lives with family Occupation Status: employed Current/Historical Medications Scheduled Valacyclovir (Valtrex), 500 MG PO TID Scheduled PRN Hydrocodone/Acetaminophen 5MG/325MG (Enloe 5MG/325MG), 1 TABLET PO Q6 PRN for Pain Ibuprofen (Motrin), 600 MG PO Q6H PRN for Pain Oxycodone/Acetaminophen 5MG/325MG (Percocet 5MG/325MG), 1-2 TAB PO Q4H PRN for Pain Allergies Coded Allergies: Azithromycin (Verified Allergy, Unknown, 05/02/17) Physical Exam Vital Signs Date Time Temp Pulse Resp B/P (MAP) Pulse Ox O2 Delivery O2 Flow Rate FiO2 05/02/17 07:28 99 18 131/86 99 05/02/17 06:35 36.8 115 16 130/81 96 Room Air Physical Exam GENERAL: Patient is a healthy-appearing well-nourished 22 year old female. HEAD: Normocephalic atraumatic EYES: Ocular movements intact pupils equal and react to light OROPHARYNX mucous membranes are moist no exudates present no erythema or edema present NECK: Supple no nuchal rigidity CHEST: Good equal expansion LUNGS: Clear and equal to auscultation CARDIAC: Normal S1 and S2 ABDOMEN: Soft nontender no guarding BACK: No CVA tenderness EXTREMITIES: Normal muscle strength in all groups, no clubbing or cyanosis. Left foot is neurovascularly intact. Left ankle is grossly swollen to the medial side. No discoloration. No cellulitis. FROM of the left knee. NEURO: Patient is following commands and answering questions appropriately. Alert and oriented x3 Cranial Nerves 2-12 grossly intact. Medical Decision & Procedures ER Provider Diagnostic Interpretation: Radiology results as stated below per my review and interpretation: Left ankle, 2 view There is no evidence of fracture, dislocation, or subluxation. Medications Administered Medications (Trade) Dose Ordered Sig/Mir Route Start Time Stop Time Status Last Admin Dose Admin Ibuprofen (Motrin Tab) 600 mg NOW STAT PO 05/02/17 06:46 05/02/17 06:48 DC 05/02/17 07:03 600 MG Oxycodone/ Acetaminophen (Percocet 5-325mg Tab) 2 tab NOW ONCE PO 05/02/17 07:00 05/02/17 07:01 DC 05/02/17 07:03 2 TAB ED Course 0640: Past medical records reviewed. The patient was evaluated in room A3. A complete history and physical examination was performed. 0646: Ibuprofen 600 mg PO 0700: Percocet 5-325 mg 2 tab PO 0705: I reassessed the patient at this time. She is feeling better and resting comfortably. I discussed the results and treatment plan with the patient. I answered all pertaining questions that she had. She expressed understanding and verbalized agreement. The patient will be discharged home. Medical Decision Prior records reviewed and summarized above. Triage Nursing notes reviewed and agree them. The patient's history was concerning for traumatic injury. Differential diagnosis: Etiologies such as fracture, dislocation, neurovascular compromise, compartment syndrome, soft tissue injury, as well as others were entertained. the physician for clarification. This is a 22-year-old female presents emergency department complaining of left ankle pain. The patient's x-rays do not show evidence of fracture dislocation or subluxation. She was given Motrin as well as Percocet in the emergency department. She was also written for prescription for Percocet however the patient is on Vicodin as prescribed by her primary care physician therefore the Percocet prescription was canceled. She was placed on crutches and in a splint and I stressed the need for follow-up with orthopedics. Patient was in agreement with the treatment plan. Medication Reconcilliation Current Medication List: was personally reviewed by me Blood Pressure Screening Patient's blood pressure: Elevated blood pressure Blood pressure disposition: Elevated BP felt to be situational Impression Primary Impression: Left ankle pain Scribe Attestation The scribe's documentation has been prepared under my direction and personally reviewed by me in its entirety. I confirm that the note above accurately reflects all work, treatment, procedures, and medical decision making performed by me. Departure Information Dispostion Home / Self-Care Prescriptions Oxycodone/Acetaminophen 5MG/325MG (PERCOCET 5MG/325MG) Tab 1-2 TAB PO Q4H Y for Pain, #14 TAB Prov: Davi Thomas MD 05/02/17 Referrals Live Gillespie M.D. (PCP) Forms HOME CARE DOCUMENTATION FORM, IMPORTANT VISIT INFORMATION, School Instructions, Work Instructions Patient Instructions My [facility] Additional Instructions Follow up with Dr Boss's office You received narcotic or benzodiazepene medication while in the emergency room today. This is an addictive medication that may cause drowziness as well as constipation. Do not drive, operate heavy machinery, or drink alcohol under the influence of this medication. Take 600 mg Ibuprofen every 6 hours Take Percocet for breakthrough pain You have been examined and treated today on an emergency basis only. This is not a substitute for, or an effort to provide, complete comprehensive medical care. It is impossible to recognize and treat all injuries or illnesses in a single emergency department visit. It is therefore important that you follow up closely with Dr Gillespie. Call as soon as possible for an appointment. Thank you for your time and consideration. I look forward to speaking with you again soon. Please don't hesitate to call us if you have any questions. Problem Qualifiers Primary Impression: Left ankle pain Chronicity: acute Qualified Codes: M25.572 - Pain in left ankle and joints of left foot
--- NOTE | 2017-05-02 07:11 | DIAGNOSTIC IMAGING REPORT ---
L ANKLE MIN 3 VIEWS ROUTINE CLINICAL HISTORY: Left ankle pain and swelling following injury. COMPARISON: None FINDINGS: Alignment of the left ankle is anatomic. There is no acute fracture. Talar dome is intact. There is marked lateral ankle soft tissue swelling. IMPRESSION: 1. No acute fracture or dislocation of the left ankle. 2. Marked lateral ankle soft tissue swelling. Electronically signed by: Curly Bronson M.D. 05/02/2017 7:10 AM Dictated Date/Time: 05/02/2017 7:08 AM
[2017-05-02 07:28] VITALS: BP 131/86; PULSE 99; O2SAT 99
== END 2017-05-02 07:32 | disposition home or self-care (01) ==
LOC: C.EDB 06:34 → C.EDA 07:32
DX: M25.572 Pain in left ankle and joints of left foot (principal); J45.909 Unspecified asthma, uncomplicated; F17.200 Nicotine dependence, unspecified, uncomplicated; Z87.01 Personal history of pneumonia (recurrent); Z90.89 Acquired absence of other organs; Z98.890 Other specified postprocedural states; Z83.3 Family history of diabetes mellitus; Z82.49 Family history of ischemic heart disease and other diseases of the circulatory system; Z84.1 Family history of disorders of kidney and ureter; Z82.0 Family history of epilepsy and other diseases of the nervous system

== ENCOUNTER 2017-07-04 16:07 | Emergency (ER) | payer OTHER ==
[~2017-07-04] VITALS: Ht 165.1 cm; Wt 68.6 kg
[~2017-07-04 16:07] MED LIST changes: -BCPILLS PO; +HYDR-5688 PO; +IBUP600T44 PO; +OXYC-57 PO; +VALA500T60 PO
[2017-07-04 16:18] VITALS: BP 121/74; PULSE 123; TEMP 37; O2SAT 99; Ht 165.1 cm; Wt 68.6 kg
[2017-07-04] MEDS ORDERED: OXYC-57 PO (16:44)
[2017-07-04] MEDS ORDERED: HYDR-4313 PO (16:44)
--- NOTE | 2017-07-04 17:24 | DIAGNOSTIC IMAGING REPORT ---
R FOREARM 2 VIEWS ROUTINE, R WRIST MIN 3 VIEWS ROUTINE CLINICAL HISTORY: fall, FOOSH, mid forearm and wrist pain COMPARISON STUDY: None. FINDINGS: Nondisplaced radial head fracture. There is an associated elbow effusion. No fractures identified within the ulna. No fracture or dislocation within the right wrist. Mild soft tissue swelling within the right wrist. IMPRESSION: 1. Nondisplaced radial head fracture. 2. No fracture or dislocation within the right wrist. Electronically signed by: Edison Quintanilla M.D. 07/04/2017 5:23 PM Dictated Date/Time: 07/04/2017 5:21 PM
--- NOTE | 2017-07-04 20:26 | EMERGENCY ROOM VISIT NOTE ---
History Report prepared by Marie: Uriel Grijalva Under the Supervision of: Dr. Neal Espinosa M.D. First contact with patient: 16:23 Chief Complaint: HAND PAIN/INJURY Stated Complaint: HAD SURGERY 06/25 ON R HAND, FELL ON HAND LAST NIGH History of Present Illness The patient is a 22 year old female who presents to the Emergency Room with complaints of right wrist pain that began last night. She rates her pain a 5/10 in severity. She has a past medical history of a tendon release surgery to her right fifth finger that was completed 9 days ago at [facility]. Last night, the patient accidentally experienced a fall, landing on her bilateral hands. She did not lose consciousness, hit her head, or become weak. She is now experiencing right arm/wrist pain with loss of range of motion and pain to her left palm. Pt denies LOC, headache, visual changes, neck pain, chest pain, breathing difficulties, nausea, vomiting, abdominal pain, back pain, lower extremity pain, numbness, weakness, open wounds, active bleeding, or other complaints. Source of History: patient Onset: last night Position: arm (right forearm), wrist (right) Symptom Intensity: 5/10 Quality: ache Timing: constant Note: She is having left palm pain as well. Review of Systems See HPI for pertinent positives and negatives. A total of eight systems were reviewed and were otherwise negative. Past Medical & Surgical Medical Problems: (1) Alcohol intoxication (2) ASTHMA, UNSPECIFIED (3) Constipation (4) Palpitations (5) Pneumonia (6) Vertebral fracture, closed Surgical Problems: (1) History of laparoscopy (2) Hx of tonsillectomy Family History Diabetes mellitus FH: migraines FHx: [place] (father) Gallbladder disease Heart disease Hypertension Kidney disease Kidney stones Lung disease Social History Smoking Status: Current Every Day Smoker Alcohol Use: occasionally Drug Use: none Marital Status: single Housing Status: lives with family Occupation Status: employed Current/Historical Medications Scheduled PRN Acetaminophen/Hydrocodone (Hydrocodone/Acetaminophen 5-325 mg), 0.5-1 TAB PO HS PRN for Pain Oxycodone/Acetaminophen 5MG/325MG (Percocet 5MG/325MG), 1 TABLET PO Q4H PRN for Pain Allergies Coded Allergies: Azithromycin (Verified Allergy, Unknown, 05/02/17) Physical Exam Vital Signs Date Time Temp Pulse Resp B/P (MAP) Pulse Ox O2 Delivery O2 Flow Rate FiO2 07/04/17 16:18 37.0 123 20 121/74 99 Room Air Physical Exam GENERAL: Awake, alert, well-appearing, in no distress HENT: Normocephalic, atraumatic. EYES: Normal conjunctiva. Sclera non-icteric. NECK: Supple. No nuchal rigidity. FROM. RESPIRATORY: Clear to auscultation. CARDIAC: Regular rate, normal rhythm. Extremities warm and well perfused. Pulses equal. MUSCULOSKELETAL: UPPER EXTREMITIES: Tenderness to the mid right forearm. No snuff box tenderness. Good ROM to the wrist. No pain with axial loading of the thumb. Sutures to the palmar aspect of the 5th finger are intact. No drainage or redness. Abrasion to the left palm. Remainder of the hand is atraumatic. NVI over all dermatomes and myotomes. NEURO: Normal sensorium. No sensory or motor deficits noted. SKIN: No rash or jaundice noted. Medical Decision & Procedures ER Provider Diagnostic Interpretation: Radiology results as stated below per my review and radiologist interpretation: R FOREARM 2 VIEWS ROUTINE, R WRIST MIN 3 VIEWS ROUTINE CLINICAL HISTORY: fall, FOOSH, mid forearm and wrist pain COMPARISON STUDY: None. FINDINGS: Nondisplaced radial head fracture. There is an associated elbow effusion. No fractures identified within the ulna. No fracture or dislocation within the right wrist. Mild soft tissue swelling within the right wrist. IMPRESSION: 1. Nondisplaced radial head fracture. 2. No fracture or dislocation within the right wrist. Electronically signed by: Edison Quintanilla M.D. 07/04/2017 5:23 PM Dictated Date/Time: 07/04/2017 5:21 PM Procedure Splinting Indication: Fracture Verbal consent obtained. Risks and benefits were explained with the usual customary discussion. The injured extremity was identified. The patient was prepped and measured for the placement of a right long arm posterior ortho- glass splint. Splint applied in the standard fashion over a layer of webril and secured using an elastic bandage. Set into a position of function. Normal neurovascular status after placement verified by me. The patient tolerated the procedure well and the care of the splint was discussed with the patient/ family. No complications. ED Course 1623: The patient was evaluated in room D6. A complete history and physical exam was performed. 1735: I performed an Orthoglass procedure at this time. Please see the procedure note for more information. 1750: I reevaluated the patient. Discussed results and discharge instructions: She verbalized understanding and agreement. The patient is ready for discharge. Medical Decision Triage Nursing notes reviewed and agree them. The patient's history was concerning for traumatic injury. Differential diagnosis: Etiologies such as fracture, dislocation, neurovascular compromise, compartment syndrome, soft tissue injury, as well as others were entertained. Physical examination: Consistent with an isolated right arm and left palm injury. ER treatment provided: Splint and sling On reassessment the patient felt better. Diagnostics interpreted by me: Imaging studies: Xrays as above. The patient does not appear to have done any damage to her recent hand surgery however she has a radial head fracture. She will contact her orthopedist on Thursday to arrange follow-up. She has pain medication at home.I gave my usual and customary discussion regarding this issue. By the evaluation outlined above emergent etiologies such as open fracture, dislocation, neurovascular compromise, compartment syndrome, infections, as well as others were deemed relatively unlikely. The patient was informed about the findings as listed above. All questions were answered and she was pleased with the treatment. Return instructions were outlined and the patient was discharged in stable condition. Prescription management: none Medication Reconcilliation Current Medication List: was personally reviewed by me Blood Pressure Screening Patient's blood pressure: Normal blood pressure Blood pressure disposition: Did not require urgent referral Impression Primary Impression: Right radial head fracture Additional Impression: Abrasion of left hand Scribe Attestation The scribe's documentation has been prepared under my direction and personally reviewed by me in its entirety. I confirm that the note above accurately reflects all work, treatment, procedures, and medical decision making performed by me. Departure Information Dispostion Home / Self-Care Referrals Live Gillespie M.D. (PCP) Forms HOME CARE DOCUMENTATION FORM, IMPORTANT VISIT INFORMATION Patient Instructions My [facility] Additional Instructions ORTHOPEDIC INSTRUCTIONS: Continue to use your current pain medications as needed for severe pain. Ibuprofen(Motrin, Advil) may be used for fever or pain. Use 600mg every six hours as needed. Take with food. Avoid using more than 2400mg in a 24 hour period. Do not use 2400mg per day for more than three consecutive days without physician direction. Prolonged inappropriate use can lead to stomach upset or ulcers. (AND/OR) Acetaminophen(Tylenol) may be used for fever or pain. Use 1000mg every six hours as needed. Avoid using more than 4000mg in a 24 hour period. Ice compresses for 20 minutes at a time four times daily for 2-3 days. Use the sling as instructed. Rest and elevate your injury. Do not get the splint wet. If your splint feels excessively tight, you have worsening pain, develop numbness or tingling, or your digits appear blue, loosen the froylan wrap. Then reapply the froylan wrap gently without removing the splint. If your symptoms are not quickly relieved return to the ER for re- evaluation. Return to the ER immediately for any numbness, tingling, severe pain, extreme swelling in the extremity or as needed. Follow-up with your orthopedist on Thursday. Let them know that you suffered a fall and radial head fracture in the right arm. Problem Qualifiers Primary Impression: Right radial head fracture Encounter type: initial encounter Fracture type: closed Fracture alignment : nondisplaced Qualified Codes: S52.124A - Nondisplaced fracture of head of right radius, initial encounter for closed fracture Additional Impression: Abrasion of left hand Encounter type: initial encounter Qualified Codes: S60.512A - Abrasion of left hand, initial encounter
== END 2017-07-04 18:42 | disposition home or self-care (01) ==
LOC: C.EDB 16:08 → C.EDD 18:42
DX: S52.124A Nondisplaced fracture of head of right radius, initial encounter for closed fracture (principal); S60.512A Abrasion of left hand, initial encounter; W18.30XA Fall on same level, unspecified, initial encounter; J45.909 Unspecified asthma, uncomplicated; K59.00 Constipation, unspecified; F17.200 Nicotine dependence, unspecified, uncomplicated; Z83.3 Family history of diabetes mellitus; Z82.0 Family history of epilepsy and other diseases of the nervous system; Z82.49 Family history of ischemic heart disease and other diseases of the circulatory system; Z84.1 Family history of disorders of kidney and ureter

== ENCOUNTER 2017-07-16 17:34 | Emergency (ER) | payer OTHER ==
[~2017-07-16] VITALS: Ht 165.1 cm; Wt 69.2 kg
[~2017-07-16 17:34] MED LIST changes: +HYDR-4313 PO; -HYDR-5688 PO; -IBUP600T44 PO; -VALA500T60 PO
[2017-07-16 17:38] VITALS: TEMP 36.7; Ht 165.1 cm; Wt 69.2 kg
[2017-07-16] MEDS ORDERED: DEXAMETHASONE SOD INJ 4 MG/ML 5 ML VIAL IM STA (17:50)
[2017-07-16] MEDS ORDERED: KETOROLAC TROMETHAMINE 60 MG/2 ML VIAL IM STA (17:50)
[2017-07-16] MEDS ORDERED: DEXAMETHASONE **PF** INJ 10 MG/ML VIAL ONE (17:57)
--- NOTE | 2017-07-16 18:17 | DIAGNOSTIC IMAGING REPORT ---
R HIP UNILATERAL 2 VIEWS CLINICAL HISTORY: 22 years-old Female presenting with Fall, right hip pain. TECHNIQUE: Frontal and frog-leg lateral views of the right hip were obtained. COMPARISON: CT of the abdomen and pelvis from 04/14/2016. FINDINGS: Right hip joint congruent. No acute fracture or malalignment. No advanced degenerative change. No radiographic soft tissue abnormality. IMPRESSION: No acute osseous injury of the right hip. Electronically signed by: Don Briscoe M.D. 07/16/2017 6:16 PM Dictated Date/Time: 07/16/2017 6:15 PM
[2017-07-16] MEDS ORDERED: IBUP-1050 PO (19:09)
[2017-07-16] MEDS ORDERED: METH4PAK PO (19:13)
--- NOTE | 2017-07-16 19:14 | EMERGENCY ROOM VISIT NOTE ---
History First contact with patient: 17:43 Chief Complaint: FALL Stated Complaint: HIP PAIN FROM FALL History of Present Illness The patient is a 22 year old female who presents to the Emergency Room with complaints of right hip pain. The patient states that she fell 2 weeks ago and injured her right elbow. She had also landed on her right hip but when she came to the emergency room it was not bothering her at that time. Several days after the fall she started getting pain in the right hip and has been getting progressively worse. The patient states it hurts to move it or to bear weight. The patient states she has been taking Motrin 800 mg once daily for the pain without any relief. Review of Systems 10 system review was performed and was negative unless stated otherwise history of present illness. Past Medical/Surgical History Medical Problems: (1) Alcohol intoxication (2) ASTHMA, UNSPECIFIED (3) Constipation (4) Palpitations (5) Pneumonia (6) Vertebral fracture, closed Surgical Problems: (1) History of laparoscopy (2) Hx of tonsillectomy Family History Diabetes mellitus FH: migraines FHx: [place] (father) Gallbladder disease Heart disease Hypertension Kidney disease Kidney stones Lung disease Social History Smoking Status: Never Smoker Alcohol Use: occasionally Drug Use: none Marital Status: single Housing Status: lives with family Occupation Status: employed Current/Historical Medications Scheduled PRN Ibuprofen (Advil), 200 MG PO DAILY PRN for Pain or Fever Physical Exam Vital Signs Date Time Temp Pulse Resp B/P (MAP) Pulse Ox O2 Delivery O2 Flow Rate FiO2 07/16/17 17:38 36.7 100 17 131/82 99 Room Air Physical Exam GENERAL: 22-year-old female appears in no acute distress. MENTAL Status: Alert and oriented 3. RIGHT HIP: No gross bony deformity noted. No erythema or edema noted. The patient is point tenderness over the greater trochanter. Full range of motion with pain elicited with all movements. Medical Decision & Procedures ER Provider Diagnostic Interpretation: R HIP UNILATERAL 2 VIEWS CLINICAL HISTORY: 22 years-old Female presenting with Fall, right hip pain. TECHNIQUE: Frontal and frog-leg lateral views of the right hip were obtained. COMPARISON: CT of the abdomen and pelvis from 04/14/2016. FINDINGS: Right hip joint congruent. No acute fracture or malalignment. No advanced degenerative change. No radiographic soft tissue abnormality. IMPRESSION: No acute osseous injury of the right hip. Electronically signed by: Don Briscoe M.D. 07/16/2017 6:16 PM Medications Administered Medications (Trade) Dose Ordered Sig/Mir Route Start Time Stop Time Status Last Admin Dose Admin Ketorolac Tromethamine (Toradol Inj) 60 mg NOW STAT IM 07/16/17 17:50 07/16/17 17:52 DC 07/16/17 18:00 60 MG Dexamethasone Sodium Phosphate (Dexamethasone Inj Pf) 10 mg STK-MED ONCE .ROUTE 07/16/17 17:57 07/16/17 17:58 DC 07/16/17 17:59 10 MG ED Course The patient was evaluated. After reviewing the patient's EMR , PD MP, the patient gets 30 hydrocodone every month. The patient was given Toradol 60 mg IM and Decadron 10 mg IM. X-ray of the right hip was ordered interpreted by the radiologist as above without any acute findings. The patient was informed of the findings and discharged home in stable condition.. Medical Decision Differential diagnosis include hip fracture, hip strain, contusion, trochanteric bursitis [place] Drug Monitoring Program Search Results: patient reviewed within database Medication Reconcilliation Current Medication List: was personally reviewed by tn Blood Pressure Screening Patient's blood pressure: Normal blood pressure Impression Primary Impression: Trochanteric bursitis of right hip Departure Information Dispostion Home / Self-Care Condition GOOD Prescriptions Methylprednisolone (MEDROL DOSEPAK) 4 Mg Azar 0 PO DAILY, #1 PKT Prov: Leah Kelsey PA-C 07/16/17 Referrals Live Gillespie M.D. (PCP) Forms HOME CARE DOCUMENTATION FORM, IMPORTANT VISIT INFORMATION Patient Instructions Bursitis, My [facility] Additional Instructions Take Medrol Dosepak as prescribed. Avoid any repetitive movement with the right hip. If symptoms are not improving in 5 days, follow-up with your family doctor for possible referral to orthopedics.
[2017-07-16 19:23] VITALS: BP 115/73; PULSE 79; O2SAT 97
== END 2017-07-16 19:25 | disposition home or self-care (01) ==
LOC: C.EDB 17:35 → C.EDD 19:25
DX: S79.911A Unspecified injury of right hip, initial encounter (principal); M70.61 Trochanteric bursitis, right hip; W19.XXXA Unspecified fall, initial encounter

== ENCOUNTER → 2017-08-05 | Outpatient (CLI) | payer OTHER ==
[~2017-08-05] MED LIST changes: -HYDR-4313 PO; +IBUP-1050 PO; -OXYC-57 PO
== END | disposition home or self-care (01) ==
LOC: C.LAB1850 11:57
PROVIDERS: ATTEND Internal Medicine Endocrinology, Diabetes & Metabolism
DX: R94.6 Abnormal results of thyroid function studies (principal)

== ENCOUNTER → 2017-08-14 | Outpatient (CLI) | payer OTHER ==
--- NOTE | 2017-08-14 16:18 | DIAGNOSTIC IMAGING REPORT ---
SOFT TISS HEAD/NECK-THYROID CLINICAL HISTORY: 22 years-old Female with GOITER. Thyroid goiter. COMPARISON: Chest CT 07/26/2016 TECHNIQUE: Multiple real time sonographic images of the thyroid were obtained accessing morley scale appearance and color doppler flow. FINDINGS: MEASUREMENTS: Right lobe: 4.9 x 2.0 x 1.8 cm Left lobe: 5.3 x 1.4 x 1.7 cm Isthmus: 0.3 cm PARENCHYMA: The thyroid parenchymal echotexture is generally homogeneous. NODULES: Small cyst containing central echogenic non-shadowing foci involves the mid aspect of the left thyroid lobe measuring up to 4.2 mm suggesting colloid cyst. No suspicious thyroid nodules are identified. IMPRESSION: 1. No suspicious thyroid nodules identified. 2. 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 The above report was generated using voice recognition software. It may contain grammatical, syntax or spelling errors. Electronically signed by: Eduar David M.D. 08/14/2017 4:16 PM Dictated Date/Time: 08/14/2017 4:14 PM
== END | disposition home or self-care (01) ==
LOC: C.ULTR 15:35
PROVIDERS: ATTEND Internal Medicine Endocrinology, Diabetes & Metabolism
DX: E04.9 Nontoxic goiter, unspecified (principal)

== ENCOUNTER 2018-10-26 18:23 | Observation (INO) ==
[2018-10-26] MEDS ORDERED: PROCHLORPERAZINE 5 MG/ML 2 ML VIAL IV STA (18:58)
[2018-10-26] MEDS ORDERED: DiphenhydrAMINE HCL 50 MG/ML VIAL IV STA (18:58)
[2018-10-26] MEDS ORDERED: MAGNESIUM SULFATE / D5W 1 GM/100 ML BAG IV ONE (18:58)
[2018-10-26] MEDS ORDERED: ACETAMINOPHEN 1,000 MG/100 ML VIAL IV STA (19:00)
[2018-10-26] MEDS ORDERED: SODIUM CHLORIDE 0.9% 1000ML 1,000 ML IV SCH (19:00)
[2018-10-26 19:51] LABS: Albumin Globulin Ratio 0.9 (0.9-2); Albumin Level 3.2 gm/dl (3.4-5.0); BUN Creatinine Ratio 7.4 (10-20); Bilirubin,Total 0.9 mg/dl (0.2-1); Calcium 8.8 mg/dl (8.5-10.1); Est GFR (African American) 119.5; Est GFR (Non-African American) 103.1; Globulin 3.7 gm/dl (2.5-4.0); Potassium 2.8 mmol/L (3.5-5.1); Total Protein 6.9 gm/dl (6.4-8.2)
[2018-10-26] MEDS ORDERED: cefTRIAXone SODIUM 1,000 MG in DEXTROSE 5% 50 ML IV STA (19:58)
[2018-10-26] MEDS ORDERED: POTASSIUM CHLORIDE 20 MEQ TABCR PO STA ×2 (20:37→21:36)
[2018-10-26] MEDS ORDERED: COSYNTROPIN IV ONE (21:33)
[2018-10-26] MEDS ORDERED: SODIUM CHLORIDE 0.9% IV ONE (21:33)
[2018-10-26] MEDS ORDERED: KETOROLAC 30 MG/ML VIAL IV STA (21:44)
--- NOTE | 2018-10-26 22:30 | Anesthesiology Progress Note ---
Date of Service October 26, 2018 Assessment & Plan (1) Headache: The patients symptomatology and timing are consistent with a postdural puncture headache from her lumbar puncture 2 days ago. Unfortunately, epidural blood patching is contraindicated in the setting of an infectious process. The anaplasmosis studies are still pending and the patient is still reporting fevers. The fevers may be secondary to strep throat, which was also diagnosed today, but she is presumptively being treated for anaplasmosis currently. Until the risk of an infectious process in the blood is ruled out, I would recommend conservative management of her PDPH. Most PDPH resolve without intervention in the first 7 days. Conservative management includes hydration (IV or oral), caffeine and pain medications. Pain medications, including Fioricet and triptans should provide some symptomatic improvement. In addition, there is some evidence that Theophylline (250 mg TID), gabapentin (300 mg TID), or pregabalin (100 mg TID) may be helpful. In addition to pain medications, I would recommend administering IV cosyntropin. 1 mg of cosyntropin in 1 liter of crystalloid administered over an hour may provide some correction relief by increasing CSF production. The effect of cosyntropin is usually seen in the first 6 to 12 hours after administration. If her symptoms continue and her anaplasmosis studies are negative, we can reevaluate her for possible epidural blood patch placement. Thank you for leighann ing us the opportunity to evaluate Ms. Glez and dont hesitate to contact us with any additional questions or concerns. Subjective Ms. Ciara Glez is a 23 yo female who presented to the ED 2 days ago with reports of fever, headache, nuchal rigidity, and sore throat. Part of her initial evaluation included spinal tap for CSF evaluation. She was discharged with a prescription for doxycycline for possible anaplasmosis. She represented to the emergency department yesterday with reports of worsening headache, now positional in nature. She was managed conservatively with pain medications and IV fluids and she experienced some symptom relief and was discharged home. This morning the patient woke up and the headache immediately reoccurred when she sat up. She states the headache consists of pain and pressure in the front of her head. It is always present, but it improves with lying down and is worse sitting or standing. The headache is associated with nausea and vomiting. She also reports photophobia and tinnitus. She also reports some mild blurred vision when sitting up. In addition, she reports continued sore throat and cyclical fevers. She has been managing her headache at home with tylenol and ibuprofen, but without significant relief. She is requesting an epidural blood patch. Review of Systems Review of Systems: As per HPI. Physical Exam Vital Signs: Last Vital Signs Temp 36.5 C 10/26/18 18:30 Pulse 86 10/26/18 18:30 Resp 20 10/26/18 18:30 BP 114/84 10/26/18 18:30 Pulse Ox 100 10/26/18 18:30 Constitutional: well developed and well nourished; no acute distress Neurologic: awake Speech / Cognition: normal speech Cranial Nerves: no nystagmus EOM grossly intact. Hearing grossly normal. Normal facial symme try without evidence of unilateral facial weakness. Results & Data Laboratory Results 10/26/18 19:14 (1) Headache Headache chronicity pattern: acute headache
[2018-10-26] MEDS ORDERED: DEXAMETHASONE SOD PHOSPHATE 10 MG in SYRINGE 0 ML IV STA (23:39)
[2018-10-26] MEDS ORDERED: NON-FORMULARY MEDICATION SCH (23:45)
[2018-10-26] MEDS ORDERED: HALOPERIDOL LACTATE 5 MG in SODIUM CHLORIDE 0.9% 500 ML IV STA (23:50)
[2018-10-26] MEDS ORDERED: DEXAMETHASONE **PF** INJ 10 MG/ML VIAL ONE (23:58)
--- NOTE | 2018-10-27 00:38 | Emergency Department Note ---
ED Visit Note The patient was taken in signout from Dr. Thomas at the change of shift. Please see that note for details. The patient was pending Cosyntropin for treatment of post-LP WALLACE per anesthesia after consultation. Blood patch deferred given suspicion of anaplasmosis infection. Patient complaining of persistent WALLACE and so was agreeable to trial dexamethasone and Hadolol to see if she felt improved for discharge vs admission, given Cosyntropin may take >8 hours to have effect. Patient denies any improvement. Prefers admission. Given multiple ED visits for sx, reasonable to admit the patient for further management. Case d/w Dr. Dunn, [facility] hospitalist, who will evaluate the patient for admission. . : Headache Qualifiers: Headache type: unspecified Headache chronicity pattern: unspecified pattern Intractability: not intractable Qualified Code(s): R51 - Headache
[2018-10-27 01:22] LABS: Mean Corpuscular Hgb Conc 34.4 g/dL (32-36); Platelet Count 149 K/uL (130-400)
[2018-10-27 01:23] LABS: Basophils # (auto) 0.03 K/uL (0-0.2); Basophils % (auto) 0.3 %; Eosinophils # (auto) 0.01 K/uL (0-0.5); Eosinophils % (auto) 0.1 %; Hematocrit (blood only) 38.4 % (37-47); Hemoglobin 13.2 g/dL (12.0-16.0); Immature Granulocytes # (auto) 0.04 K/uL (0.00-0.02); Immature Granulocytes % (auto) 0.4 %; Lymphocytes # (auto) 2.63 K/uL (1.2-3.4); Lymphocytes % (auto) 28.4 %; Mean Corpuscular Volume 89.5 fL (80-100); Monocytes # (auto) 0.47 K/uL (0.11-0.59); Monocytes % (auto) 5.1 %; Neutrophils # (auto) 6.07 K/uL (1.4-6.5); Neutrophils % (auto) 65.7 %; Platelet Estimate Normal (Normal); RDW Coefficient of Variation 12.3 % (11.5-14.5); RDW Standard Deviation 39.8 fL (36.4-46.3); Red Blood Count 4.29 M/uL (4.2-5.4); White Blood Count 9.25 K/uL (4.8-10.8)
[2018-10-27] MEDS ORDERED: POTASSIUM CHLORIDE 10 MEQ TABCR PO STA (01:47)
--- NOTE | 2018-10-27 02:50 | History and Physical Report ---
DATE OF ADMISSION: 10/27/2018 CHIEF COMPLAINT: Severe headache. HISTORY OF PRESENT ILLNESS: This is a 23-year-old female who recently had lumbar puncture who presents with severe headache. The patient was in the ER on 10/24/2018 with intermittent fevers, sore throat, chest tightness. At that time, all the workup was unrevealing except for low platelets and also she had neck pain. Lumbar puncture was done, which was negative. She was treated with Rocephin in the ER and it was felt to be anaplasmosis, anaplasmosis lab work obtained and patient was discharged on 10 days of doxycycline, but she came back again on 10/25/2018 with severe headache, thought to be from lumbar puncture and she improved with fluids and pain medication and amoxicillin was added and discharged as throat studies showed strep positive . Comes back again today with a severe headache and photophobia, pressure in the head. She still has on and off fevers. Anesthesia was consulted by ER physician for epidural patch, but epidural patch is contraindicated for ongoing infectious process and anaplasmosis studies are still pending and the patient is also still reporting fevers. Fevers could be from strep throat. Anesthesia recommended IV or oral hydration, caffeine and pain medications. The pain medication recommended was Fioricet triptans and or gabapentin.. Anesthesia also recommended administering IV cosyntropin. IV cosyntropin will take 6-12 hours to take effect. So meanwhile patient is still having headaches, so we are called for admission in the hospital until the patient's pain is improved. The patient is currently resting comfortably and hemodynamically stable, but still has significant pain and photophobia. Still has some sore throat. No chest pain or shortness of breath. No cough, no nausea, no abdominal pain. Normal bowel and bladder movements. No swelling of the legs, no rash. ALLERGIES: ZITHROMAX. PAST MEDICAL HISTORY: As mentioned above. PAST SURGICAL HISTORY: Treatment of infected right finger joint, Diagnostic laparoscopy, tonsillectomy. MEDICATIONS: Currently, patient is on amoxicillin 500 mg p.o. t.i.d., doxycycline 100 mg p.o. b.i.d., ibuprofen p.r.n., promethazine p.r.n. FAMILY HISTORY: Significant for mother has cancer, kidney stone. SOCIAL HISTORY: Single, smokes cigarettes. No alcohol use, no drug use. REVIEW OF SYMPTOMS: As per HPI. Rest of the review of symptoms negative. PHYSICAL EXAMINATION: GENERAL: The patient is of moderate build, not in acute distress. VITAL SIGNS: Temperature 36.5, pulse 77, respiratory rate 18, blood pressure 125/75, oxygen 99% on room air. HEENT: No pallor. Photophobia present. NECK: No neck masses. Supple. CARDIOVASCULAR: S1, S2 heard, regular rate and rhythm, no murmur, no gallop. RESPIRATORY SYSTEM: Normal AP diameter. No accessory muscle use. No wheezing, no crackles. ABDOMEN: Soft, bowel sounds present. Nontender. No distention. CENTRAL NERVOUS SYSTEM: Nonfocal. EXTREMITIES: No edema, no erythema. LABORATORY DATA: WBC 10.2, hemoglobin 13.2, hematocrit 38.4, platelets 149. Sodium 144, potassium 2.8, chloride 112, bicarbonate 25, BUN 6, creatinine 0.8, serum glucose 97, calcium 8.8, total bilirubin 0.9, AST 77, ALT 92, alkaline phosphatase 223. ASSESSMENT AND PLAN: This is a 23-year-old female who presents with severe headache. 1. Severe headache. Patient has had lumbar puncture for possible meningitis on 10/24/18. But LP was negative, but patient is having post lumbar puncture headache. Epidural patch is contraindicated as patient still has an infectious process going on. Cosyntropin was given in the ED. Pain control with Fioricet p.r.n. Patient also received Haldol and IV dexamethasone in the medical floor. 2. Question of possible anaplasmosis. Patient's platelets came back normal today. LFTs are improving. Follow the labs for the anaplasmosis studies. 3. Strep throat. On Amoxicillin at home. In the hospital, we will give Rocephin. 4. Hypokalemia, we will replace. 5. Deep venous thrombosis prophylaxis, sequential compression devices. DISPOSITION: Observe on medical floor. Expect to discharge home and follow with her family doctor. Level 1 full code. MTDD
[2018-10-27] MEDS ORDERED: ACETAMINOPHEN 325 MG TAB PO PRN (02:53)
[2018-10-27] MEDS ORDERED: ONDANSETRON INJ 2 MG/ML 2 ML VIAL IV PRN (02:53)
[2018-10-27] MEDS ORDERED: BUTALBITAL/ACETAMIN/CAFFEINE TAB PO PRN (02:53)
[2018-10-27] MEDS: SODIUM CHLORIDE 0.9% 1000ML 1,000 ML IV SCH ×2 (03:30→11:24)
[2018-10-27 07:44] LABS: Albumin Level 2.7 gm/dl (3.4-5.0); BUN Creatinine Ratio 10.8 (10-20); Bilirubin Direct 0.3 mg/dl (0-0.2); Calcium 7.9 mg/dl (8.5-10.1); Creatinine Clr Calc Pharmacy 128.1 ml/min; Est GFR (African American) 148.3; Potassium 4.2 mmol/L (3.5-5.1)
[2018-10-27 07:46] LABS: Bilirubin,Total 0.6 mg/dl (0.2-1); Mean Corpuscular Hgb Conc 34.8 g/dL (32-36); Platelet Count 83 K/uL (130-400); Total Protein 6.2 gm/dl (6.4-8.2)
[2018-10-27 07:47] LABS: Basophils # (auto) 0.01 K/uL (0-0.2); Basophils % (auto) 0.2 %; Eosinophils # (auto) 0.01 K/uL (0-0.5); Eosinophils % (auto) 0.2 %; Hematocrit (blood only) 33.3 % (37-47); Hemoglobin 11.6 g/dL (12.0-16.0); Immature Granulocytes # (auto) 0.04 K/uL (0.00-0.02); Immature Granulocytes % (auto) 0.7 %; Lymphocytes % (auto) 20.8 %; Monocytes # (auto) 0.15 K/uL (0.11-0.59); Monocytes % (auto) 2.6 %; Neutrophils # (auto) 4.35 K/uL (1.4-6.5); Neutrophils % (auto) 75.5 %; RBC Morphology Unremarkable; RDW Coefficient of Variation 12.4 % (11.5-14.5); RDW Standard Deviation 39.8 fL (36.4-46.3); Red Blood Count 3.74 M/uL (4.2-5.4); White Blood Count 5.76 K/uL (4.8-10.8)
[2018-10-27] MEDS ORDERED: DOXYCYCLINE HYCLATE 100 MG CAP PO SCH (09:00)
--- NOTE | 2018-10-27 14:30 | Hospitalist Progress Note ---
Date of Service October 27, 2018 Assessment & Plan (1) Headache: Mostly related from recent lumbar puncture on 10/24 Received cosyntropin in the ER Anesthesiologist was consulted and evaluated the patient in the ER Continue conservative management with fioricet Received IVF Epidural patch is contraindicated due to possible ongoing infectious process Denies any headache since last night Will continue fioricet prn (2) Strep pharyngitis: Throat cx on 10/24 was positive for group A beta strep Blood cx pending Amoxicillin was changed to Rocephin on admission Will discharge on Amoxicillin Hypokalemia K stable Monitor BMP Thrombocytopenia Plt 83 today No active bleeding Monitor CBC Fever Possible Anaplasmosis has been afebrile Continue doxycycline DVT px on SCDs CODE Status Full code Disposition Pt left without awaiting for discharge instructions Nurse said that patient removed the IV access and left. Subjective Pt was seen and examined Lying in bed with no distress Pt said that she feels fine She said that she has not had any headache since last night before going to bed She is very anxious to go home Denies any any chest pain, palpitation, dizziness, photophobia, headache and SOB Physical Exam Physical Exam: General- No acute distress Head- atraumatic Eyes- PERRL, EOMI, ENT- oropharynx clear Neck- supple, no JVD, no neck stiffness Lungs- clear to auscultation Heart- regular rhythm; no murmur Abdomen- normal bowel sounds, soft, nontender Extremities- no calf tenderness Neuro- alert, oriented x 3; PERRL, EOMI; no facial palsy; no dysarthria Skin- warm & dry Results & Data Vital Signs (Past 12 Hours) Vital Signs Temp Pulse Pulse Resp BP BP Pulse Ox 10/27/18 08:02 36.9 C 60 16 120/77 96 10/27/18 02:55 36.4 C L 64 16 114/76 97 10/27/18 02:31 65 18 107/61 96 (1) Headache Headache chronicity pattern: acute headache
[2018-10-27] MEDS ORDERED: cefTRIAXone SODIUM 1,000 MG in DEXTROSE 5% 50 ML IV SCH (21:00)
--- NOTE | 2018-10-29 00:42 | Discharge Summary ---
Date of Service October 27, 2018 Admission HPI Per Admitting Provider CHIEF COMPLAINT: Severe headache. HISTORY OF PRESENT ILLNESS: This is a 23-year-old female who recently had lumbar puncture who presents with severe headache. The patient was in the ER on 10/24/2018 with intermittent fevers, sore throat, chest tightness. At that time, all the workup was unrevealing except for low platelets and also she had neck pain. Lumbar puncture was done, which was negative. She was treated with Rocephin in the ER and it was felt to be anaplasmosis, anaplasmosis lab work obtained and patient was discharged on 10 days of doxycycline, but she came back again on 10/25/2018 with severe headache, thought to be from lumbar puncture and she improved with fluids and pain medication and amoxicillin was added and discharged as throat studies showed strep positive . Comes back again today with a severe headache and photophobia, pressure in the head. She still has on and off fevers. Anesthesia was consulted by ER physician for epidural patch, but epidural patch is contraindicated for ongoing infectious process and anaplasmosis studies are still pending and the patient is also still reporting fevers. Fevers could be from strep throat. Anesthesia recommended IV or oral hydration, caffeine and pain medications. The pain medication recommended was Fioricet triptans and or gabapentin.. Anesthesia also recommended administering IV cosyntropin. IV cosyntropin will take 6-12 hours to take effect. So meanwhile patient is still having headaches, so we are called for admission in the hospital until the patient's pain is improved. The patient is currently resting comfortably and hemodynamically stable, but still has significant pain and photophobia. Still has some sore throat. No chest pain or shortness of breath. No cough, no nausea, no abdominal pain. Normal bowel and bladder movements. No swelling of the legs, no rash. Admission Exam Per Admitting Provider GENERAL: The patient is of moderate build, not in acute distress. VITAL SIGNS: Temperature 36.5, pulse 77, respiratory rate 18, blood pressure 125/75, oxygen 99% on room air. HEENT: No pallor. Photophobia present. NECK: No neck masses. Supple. CARDIOVASCULAR: S1, S2 heard, regular rate and rhythm, no murmur, no gallop. RESPIRATORY SYSTEM: Normal AP diameter. No accessory muscle use. No wheezing, no crackles. ABDOMEN: Soft, bowel sounds present. Nontender. No distention. CENTRAL NERVOUS SYSTEM: Nonfocal. EXTREMITIES: No edema, no erythema. Principal Diagnosis Headache Strep Pharyngitis Hypokalemia Thrombocytopenia Fever Discharge Exam General- No acute distress Head- atraumatic Eyes- PERRL, EOMI, ENT- oropharynx clear Neck- supple, no JVD, no neck stiffness Lungs- clear to auscultation Heart- regular rhythm; no murmur Abdomen- normal bowel sounds, soft, nontender Extremities- no calf tenderness Neuro- alert, oriented x 3; PERRL, EOMI; no facial palsy; no dysarthria Skin- warm & dry Discharge Data Allergies Allergy/AdvReac Type Severity Reaction Status Date / Time mivacurium Allergy Unknown Unknown Verified 10/26/18 19:07 azithromycin [From Zithromax] Allergy Hives Unverified 10/26/18 19:07 Consultations 10/26/18 21:33 Consult Anesthesiology Stat 10/27/18 00:52 ED Decision to Admit Stat Hospital Course (1) Headache: Mostly related from recent lumbar puncture on 10/24 Received cosyntropin in the ER Anesthesiologist was consulted and evaluated the patient in the ER Continue conservative management with fioricet Received IVF Epidural patch is contraindicated due to possible ongoing infectious process Denies any headache since last night Will continue fioricet prn (2) Strep pharyngitis: Throat cx on 10/24 was positive for group A beta strep Blood cx pending Amoxicillin was changed to Rocephin on admission Will discharge on Amoxicillin Hypokalemia K stable Monitor BMP Thrombocytopenia Plt 83 today No active bleeding Monitor CBC Fever Possible Anaplasmosis has been afebrile Continue doxycycline DVT px on SCDs CODE Status Full code Disposition Pt left without awaiting for discharge instructions Nurse said that patient removed the IV access and left. Total Time Total Time Spent Total Time Spent (In Minutes): 35 minutes Total Time Includes: Examination of the Patient, Discharge Planning, Medication Reconciliation, Communication With Other Providers and Other Discharge Plan Discharge Items Disposition: Against Medical Advice Driving/Machine Use: No limitations Diet: Regular Admission Data Admit Date/Time: 10/27/18 01:40 Service: Medical Other DC Date/Time DO NOT enter until pt leaves facility: 10/27/18 15:15
--- NOTE | 2018-10-30 07:47 | Emergency Department Note ---
Entered by Maisha Dasilva acting as a scribe for History of Present Illness General Chief complaint: Headache Stated complaint: BLOOD PATCH Time Seen by Provider: 10/26/18 18:54 Source: patient Mode of arrival: ambulatory Limitations: no limitations History of Present Illness Onset (ago): day(s) 2 Location: head Radiation: non-radiation Pain Consistency: + constant Maximum Pain Intensity: 8 Current Pain Intensity: 8 Relieved By: + medication Exacerbated By: + movement Associated symptoms: + other (+sore throat) Treatments prior to arrival: NSAID (Ibuprofen) The patient is a 23 year old female who presents to the ED with complaints of a worsening headache. She notes she was seen here 2 days [employer] and had a lumbar puncture procedure for possible Lyme disease. She was placed on Doxycycline at the time. Yesterday, her headache worsened, so she came back to the ED and was given IV fluids and medication. She rates her pain as an 8/10 in severity. Movement worsens her pain. She called the ED today and was told to come back with her increased pain. She reports the last time she had Ibuprofen this morning. Medication has provided minimal relief. The patient notes she also continues to have a sore throat, which she has had for the past few days. Home Medications Home Medications Medication Instructions Recorded Confirmed Type ibuprofen 600 mg PO .PRN PRN 10/25/18 10/26/18 History promethazine 25 mg PO Q6H PRN #15 tab 10/25/18 10/26/18 Rx Doxycycline Tab 1 tab PO BID 10/26/18 10/26/18 History amoxicillin 500 mg PO TID #30 tab 10/26/18 Rx Allergies Allergy/AdvReac Type Severity Reaction Status Date / Time mivacurium Allergy Unknown Unknown Verified 10/26/18 19:07 azithromycin [From Zithromax] Allergy Hives Unverified 10/26/18 19:07 Past Med/Surg History Medical History PCOS (polycystic ovarian syndrome) (Chronic) Unspecified asthma, uncomplicated (Chronic 11/20/12) Surgical History History of laparoscopy (Resolved) Hx of tonsillectomy (Resolved) Family History Other No significant family history Social History Preferred Language: Yakut Communication Ability: Effective Billing Representative Required: No Beliefs That Will Affect Care: None marital status: Single Current Living Situation: Alone current occupational status: unemployed Feels Safe at Home: Yes Safety Concerns: Feels Safe At This Time Smoking Status: Current every day smoker Tobacco Type: cigarettes Cigarettes Per Day: 2-3 Hx Alcohol Use: No Hx Substance Use: No Review of Systems See HPI for pertinent positives & negatives. and A total of 10 systems reviewed and were otherwise negative Physical Exam Vital Signs Vital Signs - 24 hr 10/26/18 18:30 Temperature 36.5 C Temperature Source Oral Sepsis Recent Fever Within 48 Hours No Sepsis Action Taken by Nursing No Action Required Pulse Rate 86 Pulse Rhythm Regular Pulse Strength Normal Respiratory Rate 20 Respiratory Effort / Characteristics Non-Labored Spontaneous Respiratory Depth Normal Respiratory Pattern Regular Blood Pressure 114/84 Blood Pressure Mean 94 Blood Pressure Position Sitting Pulse Oximetry 100 Oxygen Delivery Method Room Air GENERAL: Awake, alert, well-appearing, in no acute distress HENT: Normocephalic, atraumatic. Oropharynx unremarkable. EYES: Normal conjunctiva. Sclera non-icteric. NECK: Supple. No nuchal rigidity. FROM. No JVD. No evidence of meningitis or encephalitis on exam RESPIRATORY: Clear to auscultation. CARDIAC: Regular rate, normal rhythm. Extremities warm and well perfused. Pulses equal. ABDOMEN: Soft, non-distended. No tenderness to palpation. No rebound or guarding. No masses. RECTAL: Deferred. MUSCULOSKELETAL: Chest examination reveals no tenderness. The back is symmetrical on inspection without obvious abnormality. There is no CVA tenderness to palpation. No joint edema. LOWER EXTREMITIES: Calves are equal size bilaterally and non-tender. No edema. No discoloration. NEURO: Normal sensorium. No sensory or motor deficits noted. SKIN: No rash or jaundice noted. Course 1855: The patient was evaluated in room B4B. A complete history and physical were performed. 1901: I discussed the patients case with Anesthesiology. The patient will be further evaluated. Consultations Consultation #1: I discussed the patients case with Anesthesiology. The patient will be further evaluated. Time: 19:02 Administered Medications Discontinued Medications Acetaminophen (Tylenol) 650 mg PO Q4H PRN PRN Reason: pain/fever Stop: 11/26/18 02:52 Last Admin: 10/27/18 03:30 Dose: 650 mg Documented by: [id number] Dexamethasone Sodium Phosphate (Decadron Pf) Confirm Administered Dose 10 mg .ROUTE .STK-MED ONE Stop: 10/26/18 23:59 Last Admin: 10/27/18 00:01 Dose: 10 mg Documented by: [id number] Diphenhydramine HCl (Benadryl) 50 mg IV NOW STA Stop: 10/26/18 18:59 Last Admin: 10/26/18 19:28 Dose: 50 mg Documented by: [id number] Doxycycline Hyclate (Vibramycin) 100 mg PO BID [facility]; Protocol Stop: 11/07/18 08:59 Last Admin: 10/27/18 09:42 Dose: 100 mg Documented by: [id number] Magnesium Sulfate/Dextrose (Magnesium Sulfate / D5w) 1 gm in 100 mls @ 100 mls/hr IV ONE ONE Stop: 10/26/18 19:57 Last Infusion: 10/26/18 21:11 Dose: 0 mls/hr Documented by: [id number] Admin: 10/26/18 20:07 Dose: 100 mls/hr Documented by: [id number] Acetaminophen (Ofirmev) 1,000 mg in 100 mls @ 400 mls/hr IV NOW STA Stop: 10/26/18 19:14 Last Infusion: 10/26/18 20:02 Dose: 0 mls/hr Documented by: [id number] Admin: 10/26/18 19:28 Dose: 400 mls/hr Documented by: [id number] Sodium Chloride (Nss 1000ml) 1,000 mls @ 999 mls/hr IV .Q1H1M [facility] Stop: 10/26/18 20:00 Last Infusion: 10/26/18 21:12 Dose: 0 mls/hr Documented by: [id number] Admin: 10/26/18 19:28 Dose: 999 mls/hr Documented by: [id number] Ceftriaxone Sodium 1,000 mg/ (Dextrose) 60 mls @ 100 mls/hr IV NOW STA; Protocol Stop: 10/26/18 20:33 Last Infusion: 10/26/18 22:03 Dose: 0 mls/hr Documented by: [id number] Admin: 10/26/18 21:11 Dose: 100 mls/hr Documented by: [id number] Cosyntropin 500 mcg/ Sodium (Chloride) 52 mls @ 624 mls/hr IV NOW ONE Stop: 10/26/18 21:37 Last Infusion: 10/26/18 23:25 Dose: 0 mls/hr Documented by: [id number] Admin: 10/26/18 22:22 Dose: 624 mls/hr Documented by: [id number] Dexamethasone Sodium Phosphate (10 mg/ Syringe) 2.5 mls @ 1 mls/min IV NOW STA Stop: 10/26/18 23:41 Last Admin: 10/27/18 00:06 Dose: Not Given Documented by: [id number] Haloperidol Lactate 5 mg/ (Sodium Chloride) 501 mls @ 999 mls/hr IV NOW STA Stop: 10/27/18 00:20 Last Infusion: 10/27/18 00:40 Dose: 0 mls/hr Documented by: [id number] Admin: 10/27/18 00:03 Dose: 999 mls/hr Documented by: [id number] Sodium Chloride (Nss 1000ml) 1,000 mls @ 125 mls/hr IV .Q8H FELI Stop: 11/26/18 02:52 Last Infusion: 10/27/18 14:33 Dose: 0 mls/hr Documented by: [id number] Admin: 10/27/18 11:24 Dose: 125 mls/hr Documented by: [id number] Infusion: 10/27/18 11:24 Dose: 125 mls/hr Documented by: [id number] Admin: 10/27/18 03:30 Dose: 125 mls/hr Documented by: [id number] Ketorolac Tromethamine (Toradol) 30 mg IV NOW STA Stop: 10/26/18 21:45 Last Admin: 10/26/18 22:17 Dose: 30 mg Documented by: [id number] Potassium Chloride (Klor-Con M20) 40 meq PO NOW STA Stop: 10/26/18 20:38 Last Admin: 10/26/18 20:51 Dose: 40 meq Documented by: [id number] Potassium Chloride (Klor-Con M20) 40 meq PO NOW STA Stop: 10/26/18 21:37 Last Admin: 10/26/18 22:17 Dose: Not Given Documented by: [id number] Potassium Chloride (Klor-Con M10) 20 meq PO NOW STA Stop: 10/27/18 01:48 Last Admin: 10/27/18 02:29 Dose: 20 meq Documented by: [id number] Prochlorperazine (Compazine) 10 mg IV NOW STA Stop: 10/26/18 18:59 Last Admin: 10/26/18 19:28 Dose: 10 mg Documented by: [id number] Medical Decision Making Laboratory Data Result diagrams: 10/27/18 06:51 10/27/18 06:51 Lab Results 10/26/18 10/26/18 Range/Units 19:14 19:14 WBC 9.25 (4.8-10.8) K/uL RBC 4.29 (4.2-5.4) M/uL Hgb 13.2 (12.0-16.0) g/dL Hct 38.4 (37-47) % MCV 89.5 (80-100) fL MCH 30.8 (25-34) pg MCHC 34.4 (32-36) g/dL RDW Std Deviation 39.8 (36.4-46.3) fL RDW Coeff of Memo 12.3 (11.5-14.5) % Plt Count 149 D (130-400) K/uL Immature Gran % (Auto) 0.4 % Neut % (Auto) 65.7 % Lymph % (Auto) 28.4 % [place]bour % (Auto) 5.1 % Eos % (Auto) 0.1 % Baso % (Auto) 0.3 % Immature Gran # (Auto) 0.04 H (0.00-0.02) K/uL Neut # (Auto) 6.07 (1.4-6.5) K/uL Lymph # (Auto) 2.63 (1.2-3.4) K/uL [place]bour # (Auto) 0.47 (0.11-0.59) K/uL Eos # (Auto) 0.01 (0-0.5) K/uL Baso # (Auto) 0.03 (0-0.2) K/uL Platelet Estimate Normal (Normal) Sodium 144 (136-145) mmol/L Potassium 2.8 L D (3.5-5.1) mmol/L Chloride 112 H (98-107) mmol/L Carbon Dioxide 25 (21-32) mmol/L Anion Gap 7.0 (3-11) BUN 6 L (7-18) mg/dl Creatinine 0.81 (0.6-1.2) mg/dl Est Cr Clr Drug Dosing 98.0 ml/min Est GFR ( Amer) 119.5 Est GFR (Non-Af Amer) 103.1 BUN/Creatinine Ratio 7.4 L (10-20) Glucose 97 (70-99) mg/dl Calcium 8.8 (8.5-10.1) mg/dl Total Bilirubin 0.9 D (0.2-1) mg/dl AST 77 H (15-37) U/L ALT 92 H (12-78) U/L Alkaline Phosphatase 223 H (45-117) U/L Total Protein 6.9 (6.4-8.2) gm/dl Albumin 3.2 L (3.4-5.0) gm/dl Globulin 3.7 (2.5-4.0) gm/dl Albumin/Globulin Ratio 0.9 (0.9-2) MDM Narrative This is a 23-year-old female who presents emergency department 2 days after a lumbar puncture. Patient is requesting to see anesthesia for a possible blood patch. I will note that this patient CBC did not come back due to lab error. However upon my review the patient's white blood cell count is falling. She is afebrile. She has no evidence of meningitis or encephalitis on physical examination. The patient was given a normal saline bolus as well as Tylenol Compazine and Benadryl here in the emergency department. She was independently evaluated by anesthesia and using shared medical decision-making with the patient and family the decision was made not to do a blood patch. The patient is instead going to try increasing her fluids as well as caffeine. Due to the patient's positive strep test she was also placed on amoxicillin. Impression & Plan Headache, Strep pharyngitis Discharge Plan Visit Data *Final* Discharge Date/Time: 10/27/18 02:31 Chief Complaint: Headache Stated Complaint: BLOOD PATCH ED Provider: Sander Palacios Discharge Problem: Headache, Strep pharyngitis Patient Disposition: Home - Self-Care Condition: Good Discharge Instructions Interventions: ED Discharge Assessment Last Done: 10/27/18 02:31 Discharge Problem: Headache Qualifiers: Headache type: unspecified Headache chronicity pattern: unspecified pattern Intractability: not intractable Qualified Code(s): R51 - Headache The scribe's documentation has been prepared under my direction and personally reviewed by me in its entirety. I confirm that the note above accurately reflects all work, treatment, procedures, and medical decision making performed by me.
== END 2018-10-27 15:15 | disposition left against medical advice (07) ==
LOC: 2W 18:23 → ED 18:23 → SUATTDRO 10-27 01:40 → 2W 10-27 02:31

== ENCOUNTER 2021-12-18 13:10 | Inpatient (IN) ==
[2021-12-18] MEDS ORDERED: cefTRIAXone SODIUM 2,000 MG/70 ML BAG IV STA (14:11)
[2021-12-18] MEDS ORDERED: SODIUM CHLORIDE 0.9% 1000ML 2,000 ML IV ONE (14:11)
--- NOTE | 2021-12-18 14:14 | Emergency Department Note ---
Impression & Plan Back pain, Abdominal pain, IVDA (intravenous drug abuse) complicating , Fever ED Provider Note NAME: SERAFIN VENTURA AGE: 26 SEX: F : 1995 ARRIVES VIA: Ambulance INFORMANT: Patient ED PROVIDER(S): Hilario Villalba DO CHIEF COMPLAINT: abd pain and back pain HPI: Patient is a 26-year-old female who presents the ER for back pain and belly pain which been present for the past 2 days. She notes that for the past week she has been having cough and upper respiratory symptoms. She is been feeling very hot and cold for the past 2 to 3 days. Denies any recorded fevers. Admits to mild headache. She does have a cough congestion and runny nose. No s ignificant chest pain but admits to shortness of breath. Severe belly pain and back pain. She cannot tell what is worse. She cannot stand up or move secondary to the back pain. Denies any tingling or numbness or weakness in the legs. Significant pain with movement of the legs. No tingling or numbness in the groin. No dysuria urgency or frequency. Last menstrual period was about a week ago. No other exacerbating or remitting factors. She initially notes that she has not used IV drugs for several months but later admits to using them within the past week with new fresh track willis. ROS: See above HPI for pertinent positives & negatives. A total of 10 systems reviewed and were otherwise negative. PAST MEDICAL HISTORY:See Below PAST SURGICAL HISTORY:See Below FAMILY HISTORY:See Below SOCIAL HISTORY:See Below HOME MEDICATIONS:See Below ALLERGIES:See Below VITALS:See Below PHYSICAL EXAMINATION: GENERAL: Sitting up in bed, alert, disheveled, mild distress, slightly ill- appearing, significant pain with any movement EYE EXAM: normal conjunctiva. PERRL and EOM's grossly intact. OROPHARYNX: no exudate, no erythema, lips, buccal mucosa, and tongue normal and mucous membranes are dry NECK: supple, no nuchal rigidity, no adenopathy, non-tender LUNGS: Clear to auscultation. Normal chest wall mechanics HEART: no murmurs, S1 normal and S2 normal ABDOMEN: abdomen soft, non-tender, normo-active bowel sounds, no masses, no rebound or guarding. BACK: Back is symmetrical on inspection and there is no deformity, diffuse lower lumbar tenderness SKIN: Track willis on bilateral upper extremities with bruising over the veins UPPER EXTREMITIES: upper extremities are grossly normal. LOWER EXTREMITIES: Flexion and extension of the hips, knees, ankles, and EHL 5/5 bilaterally. Gross sensation is intact. DPs are 2/4 bilateral. NEURO EXAM: Normal sensorium, cranial nerves II-XII grossly intact, normal speech, no gross weakness of arms. MEDICAL DECISION MAKING: Patient is a 26-year-old female IV drug abuser that presents the ER for intermittent fevers for the past 2 days associate with severe belly pain back pain and unable to move. IV was established blood work was obtained. Labs show no significant leukocytosis or anemia. INR was unremarkable. BMP with mild hypokalemia. T bili slightly up at 1.3. LFTs were unremarkable. Troponin was negative. hCG and Pro-Angel were normal. UA was clean. Tox was positive for benzos amphetamines and narcotics. CT abdomen pelvis as well as the lumbar spine and chest show no acute pathology. Was waiting on the UA prior to ordering the MRI that lumbar spine as she was having fevers and back pain with IV drug use. Did discuss with hospitalist for admission due to the fevers and severe pain as well as IV drug use. Blood cultures were obtained. She was given fluids and morphine as well as IV Rocephin. Triage Nursing notes reviewed. Limited review of prior medical records performed Vital Signs: reviewed and remarkable for tachy Differential diagnosis: Differential diagnoses includes but is not limited to gastritis, peptic ulcer disease, GERD, gallbladder disease, pancreatitis, small bowel obstruction, acute coronary syndrome, pericarditis, ischemic bowel, irritable bowel disease, irritable bowel syndrome, appendicitis, diverticulitis, malignancy, hernia, urinary tract infection, torsion, [/ectopic (if female)], perforation, trauma, infectious. ER treatment provided: See below Diagnostics interpreted by me: ECG: Sinus tachycardia rate of 98 Normal axis No PVCs Incomplete right bundle branch block Cardiac Monitoring: An order was placed for continuous cardiac monitoring. The monitor shows a rate of 101 with sinus rhythm. Laboratory studies: As stated above and show below. Imaging studies: CTs as described above Consultation(s): Discussed with [facility]ist for further evaluation Procedures: none Critical Care: None Past Med/Surg History Medical History Alcohol intoxication Constipation Headache Palpitations PCOS (polycystic ovarian syndrome) Strep pharyngitis Unspecified asthma, uncomplicated (11/20/12) Surgical History History of laparoscopy Hx of tonsillectomy Family History Father Coronary heart disease Other Family history of heart attack Social History (Updated 12/18/21 @ 18:06 by Christi Osei PA-C) Smoking Status: Current every day smoker Tobacco Type: Cigarettes Cigarettes Per Day: 2-3; Hx Alcohol Use: No Hx Substance Use: Yes (history IV drug use) Preferred Language: Moroccan Communication Ability: Effective Assembler Motor Vehicle Required: No Beliefs That Will Affect Care: None marital status: Single Current Living Situation: Alone current occupational status: unemployed Feels Safe at Home: Yes Assistive Devices: None Allergies Allergies Allergy/AdvReac Type Severity Reaction Status Date / Time azithromycin [From Zithromax] Allergy Severe THROAT & Verified 12/18/21 18:14 FACE SWELLING, SOB, HIVES bee venom protein (honey bee) Allergy Severe Anaphylaxis Verified 12/18/21 18:14 diphenhydramine AdvReac Anxiety Unverified 12/18/21 18:16 Home Meds Home Medications Medication Instructions Recorded Confirmed intocli-wxaydakpkhnil-nepqkjoo 250 1 tab PO DIRECTED PRN Migraine 11/30/21 12/18/21 mg-250 mg-65 mg tablet (Excedrin Headache Migraine) ibuprofen 200 mg tablet 200 mg PO BID PRN Pain 12/18/21 12/18/21 Previous Rx's Medication Instructions Recorded epinephrine 0.3 mg/0.3 mL 0.3 mg (0.3 mL) IM ONCE PRN 11/30/21 injection syringe anaphylaxis #1 ea Results & Data (ED) Vital Signs Vital Signs - 24 hr 12/18/21 13:16 12/18/21 14:14 12/18/21 15:16 Temperature 37.1 C Temperature Source Oral Pulse Rate 101 H 104 H Pulse Rate [Apical] 90 Respiratory Rate 20 18 18 Respiratory Effort / Characteristics Non-Labored Non-Labored Blood Pressure 109/71 Blood Pressure [Left Arm] 118/66 Blood Pressure Mean 83 Blood Pressure Mean [Left Arm] 83 Pulse Oximetry 96 97 99 Oxygen Delivery Method Room Air Room Air Room Air Sepsis Recent Fever Within 48 Hours Yes Sepsis New/Unexplained Change in Mental Status No Sepsis Action Taken by Nursing No Action Required 12/18/21 17:00 Temperature Temperature Source Pulse Rate Pulse Rate [Apical] 97 H Respiratory Rate 17 Respiratory Effort / Characteristics Non-Labored Blood Pressure Blood Pressure [Left Arm] 119/60 Blood Pressure Mean Blood Pressure Mean [Left Arm] 79 Pulse Oximetry 96 Oxygen Delivery Method Sepsis Recent Fever Within 48 Hours Sepsis New/Unexplained Change in Mental Status Sepsis Action Taken by Nursing Laboratory Data Result diagrams: 12/18/21 13:20 12/18/21 13:20 Lab Results 12/18/21 12/18/21 12/18/21 Range/Units 13:20 13:20 13:20 WBC 10.61 (4.8-10.8) K/ul RBC 3.87 L (3.93-5.22) M/uL Hgb 12.4 (12.0-16.0) g/dl Hct 37.0 (34.1-44.9) % MCV 95.6 (80.0-100.0) fL MCH 32.0 (25.0-34.0) pg MCHC 33.5 (32.0-36.0) g/dL RDW Std Deviation 41.5 (36.4-46.3) fL RDW Coeff of Memo 11.9 (11.5-14.5) % Plt Count 245 (130-400) K/uL MPV 10.2 (9.4-12.3) fL Immature Gran % (Auto) 0.6 % Neut % (Auto) 80.8 % Lymph % (Auto) 9.4 % [facility] % (Auto) 9.0 % Eos % (Auto) 0.0 % Baso % (Auto) 0.2 % Neut # (Auto) 8.58 H (1.4-6.5) K/uL Lymph # (Auto) 1.00 L (1.2-3.4) K/uL [facility] # (Auto) 0.95 H (0.24-0.82) K/uL Eos # (Auto) 0.00 (0-0.50) K/uL Baso # (Auto) 0.02 (0-0.2) K/uL Immature Gran # (Auto) 0.06 H (0.00-0.02) K/uL PT 11.4 (9.0-12.0) Seconds INR 1.1 (0.9-1.1) APTT 30.1 (21.0-31.0) Seconds PTT Ratio 1.1 Sodium 134 L (136-145) mmol/L Potassium 3.5 (3.5-5.1) mmol/L Chloride 102 (98-107) mmol/L Carbon Dioxide 23 (21-32) mmol/L Anion Gap 9 (3-11) BUN 7 (6-23) mg/dl Creatinine 0.69 (0.6-1.2) mg/dl Est Cr Clr Drug Dosing 112.2 ml/min Est GFR ( Amer) 140.2 ml/min Est GFR (Non-Af Amer) 121.0 ml/min BUN/Creatinine Ratio 10.1 (10-20) Glucose 125 H (70-99(Fasting)) mg/dl Lactate (0.4-2.0) mmol/L Calcium 9.4 (8.5-10.1) mg/dl Magnesium 1.8 (1.7-2.4) mg/dl Total Bilirubin 1.3 H (0.2-1.0) mg/dl AST 33 (13-39) U/L ALT 67 H (7-52) U/L Alkaline Phosphatase 54 (34-104) U/L Troponin I High Sens 3.4 (0-14) pg/ml Total Protein 7.8 (6.0-8.3) gm/dl Albumin 4.1 (3.4-5.0) gm/dl Globulin 3.7 (2.5-4.0) gm/dl Albumin/Globulin Ratio 1.1 (0.9-2) Procalcitonin (0-0.5) ng/ml HCG, Qual (Negative) Monoscreen (Negative) SARS-CoV-2, RNA, NAAT (NEGATIVE) 12/18/21 12/18/21 12/18/21 Range/Units 13:20 14:22 14:23 WBC (4.8-10.8) K/ul RBC (3.93-5.22) M/uL Hgb (12.0-16.0) g/dl Hct (34.1-44.9) % MCV (80.0-100.0) fL MCH (25.0-34.0) pg MCHC (32.0-36.0) g/dL RDW Std Deviation (36.4-46.3) fL RDW Coeff of Memo (11.5-14.5) % Plt Count (130-400) K/uL MPV (9.4-12.3) fL Immature Gran % (Auto) % Neut % (Auto) % Lymph % (Auto) % [facility] % (Auto) % Eos % (Auto) % Baso % (Auto) % Neut # (Auto) (1.4-6.5) K/uL Lymph # (Auto) (1.2-3.4) K/uL [facility] # (Auto) (0.24-0.82) K/uL Eos # (Auto) (0-0.50) K/uL Baso # (Auto) (0-0.2) K/uL Immature Gran # (Auto) (0.00-0.02) K/uL PT (9.0-12.0) Seconds INR (0.9-1.1) APTT (21.0-31.0) Seconds PTT Ratio Sodium (136-145) mmol/L Potassium (3.5-5.1) mmol/L Chloride (98-107) mmol/L Carbon Dioxide (21-32) mmol/L Anion Gap (3-11) BUN (6-23) mg/dl Creatinine (0.6-1.2) mg/dl Est Cr Clr Drug Dosing ml/min Est GFR ( Amer) ml/min Est GFR (Non-Af Amer) ml/min BUN/Creatinine Ratio (10-20) Glucose (70-99(Fasting)) mg/dl Lactate 0.6 (0.4-2.0) mmol/L Calcium (8.5-10.1) mg/dl Magnesium (1.7-2.4) mg/dl Total Bilirubin (0.2-1.0) mg/dl AST (13-39) U/L ALT (7-52) U/L Alkaline Phosphatase (34-104) U/L Troponin I High Sens (0-14) pg/ml Total Protein (6.0-8.3) gm/dl Albumin (3.4-5.0) gm/dl Globulin (2.5-4.0) gm/dl Albumin/Globulin Ratio (0.9-2) Procalcitonin 0.07 (0-0.5) ng/ml HCG, Qual Negative (Negative) Monoscreen (Negative) SARS-CoV-2, RNA, NAAT (NEGATIVE) 12/18/21 12/18/21 Range/Units 14:23 14:26 WBC (4.8-10.8) K/ul RBC (3.93-5.22) M/uL Hgb (12.0-16.0) g/dl Hct (34.1-44.9) % MCV (80.0-100.0) fL MCH (25.0-34.0) pg MCHC (32.0-36.0) g/dL RDW Std Deviation (36.4-46.3) fL RDW Coeff of Memo (11.5-14.5) % Plt Count (130-400) K/uL MPV (9.4-12.3) fL Immature Gran % (Auto) % Neut % (Auto) % Lymph % (Auto) % [facility] % (Auto) % Eos % (Auto) % Baso % (Auto) % Neut # (Auto) (1.4-6.5) K/uL Lymph # (Auto) (1.2-3.4) K/uL [facility] # (Auto) (0.24-0.82) K/uL Eos # (Auto) (0-0.50) K/uL Baso # (Auto) (0-0.2) K/uL Immature Gran # (Auto) (0.00-0.02) K/uL PT (9.0-12.0) Seconds INR (0.9-1.1) APTT (21.0-31.0) Seconds PTT Ratio Sodium (136-145) mmol/L Potassium (3.5-5.1) mmol/L Chloride (98-107) mmol/L Carbon Dioxide (21-32) mmol/L Anion Gap (3-11) BUN (6-23) mg/dl Creatinine (0.6-1.2) mg/dl Est Cr Clr Drug Dosing ml/min Est GFR ( Amer) ml/min Est GFR (Non-Af Amer) ml/min BUN/Creatinine Ratio (10-20) Glucose (70-99(Fasting)) mg/dl Lactate (0.4-2.0) mmol/L Calcium (8.5-10.1) mg/dl Magnesium (1.7-2.4) mg/dl Total Bilirubin (0.2-1.0) mg/dl AST (13-39) U/L ALT (7-52) U/L Alkaline Phosphatase (34-104) U/L Troponin I High Sens (0-14) pg/ml Total Protein (6.0-8.3) gm/dl Albumin (3.4-5.0) gm/dl Globulin (2.5-4.0) gm/dl Albumin/Globulin Ratio (0.9-2) Procalcitonin (0-0.5) ng/ml HCG, Qual (Negative) Monoscreen Negative (Negative) SARS-CoV-2, RNA, NAAT NEGATIVE (NEGATIVE) Administered Medications Acetaminophen (Acetaminophen 500 Mg Tab) 1,000 mg PO Q8H FELI Stop: 01/17/22 21:59 Last Admin: 12/18/21 21:13 Dose: 1,000 mg Documented By: KELL Cyclobenzaprine HCl (Cyclobenzaprine Hcl 10 Mg Tab) 10 mg PO Q8H PRN PRN Reason: Muscle Spasm Stop: 01/17/22 19:53 Last Admin: 12/18/21 21:14 Dose: 10 mg Documented By: KELL Discontinued Medications Ceftriaxone Sodium (Rocephin) 2,000 mg in 70 mls @ 140 mls/hr IV NOW STA Stop: 12/18/21 14:40 Last Infusion: 12/18/21 14:58 Dose: 0 mls/hr Documented By: Admin: 12/18/21 14:28 Dose: 140 mls/hr Documented By: DORIAN Sodium Chloride (Nss 1000ml) 2,000 mls @ 999 mls/hr IV .Q2H1M ONE Stop: 12/18/21 16:11 Last Infusion: 12/18/21 16:30 Dose: 0 mls/hr Documented By: Admin: 12/18/21 14:28 Dose: 999 mls/hr Documented By: DORIAN Parenteral Electrolytes (Normosol-R) 2,000 mls @ 999 mls/hr IV .Q2H1M ONE Stop: 12/18/21 19:08 Last Infusion: 12/18/21 21:11 Dose: 0 mls/hr Documented By: Admin: 12/18/21 17:31 Dose: 999 mls/hr Documented By: ML Ioversol (Optiray 320 125ml) 120 ml IV ONCE ONE Stop: 12/18/21 16:08 Last Admin: 12/18/21 16:07 Dose: 120 ml Documented By: EW Morphine Sulfate (Morphine Sulfate 4 Mg/Ml 1 Ml Carp\Vial) 4 mg IV NOW STA Stop: 12/18/21 14:48 Last Admin: 12/18/21 15:06 Dose: 4 mg Documented By: ML Imaging Data Radiologist's Impression: Abdomen/Pelvis CT 12/18/21 14:[address] WITH IV CONTRAST CT DOSE: HISTORY: severe generalized abd pain and back pain IVDA TECHNIQUE: Multiaxial CT images of the abdomen and pelvis were performed follow ing the use of intravenous contrast. A dose lowering technique was utilized adhering to the principles of ALARA. COMPARISON STUDY: Abdomen and pelvis CT 11/09/2020. FINDINGS: Mild dependent changes seen at the lung bases. No pneumoperitoneum. No pneumatosis. Old mild superior endplate compression deformity at L3, unchanged. The liver, gallbladder, pancreas, spleen, adrenal glands, and kidneys are unremarkable. The main portal vein is patent. Normal caliber abdominal aorta with no evidence for dissection. No retroperitoneal lymphadenopathy. No pelvic lymphadenopathy. The bladder, uterus, and ovaries are unremarkable. No bowel wall thickening or obstruction. The visualized appendix is unremarkable. IMPRESSION: 1. No bowel wall thickening or obstruction. 2. The visualized appendix is unremarkable. 3. No hydronephrosis. ACT 112: Negative or not required by law. Electronically signed by: Edison Quintanilla M.D. 12/18/2021 4:28 PM Chest CTA 12/18/21 14:10 CT angio chest PE protocol CLINICAL HISTORY: Shortness of breath. IV drug abuse. Fever. Severe back pain. COMPARISON STUDY: 07/26/2016 CT DOSE: TECHNIQUE: CT Angio of the chest was performed.followed by image post processing with coronal, and sagittal MIP reformats. Contrast Volume: Optiray 320, 120 ml FINDINGS: Vasculature: There is homogeneous perfusion of the pulmonary vasculature bilaterally. No intraluminal filling defects or evidence for pulmonary embolus is seen. Airway: The airway is clear. No endobronchial lesion is identified. Lungs: The lungs are clear of acute alveolar opacities, air bronchograms or pulmonary nodules. Pleura: There is no evidence for pleural effusion. There is no evidence for pneumothorax. Mediastinum: There is no evidence for pathologic adenopathy. The heart size is within normal limits. The thoracic aorta is within normal limits. There is no evidence for pericardial effusion. Upper abdomen:The adrenal glands are normal bilaterally. Osseous structures: The thoracic vertebral bodies are intact. There is no paraspinal soft tissue swelling present. Impression: 1. No CTA evidence for pulmonary embolus. 2. No acute chest disease. 3. Negative CT of the thoracic spine ACT 112: Negative or not required by law. Electronically signed by: Louis Lowery M.D. 12/18/2021 4:30 PM Chest X-Ray 12/18/21 14:10 SINGLE VIEW CHEST CLINICAL HISTORY: Sepsis. FINDINGS: 2 AP, portable, upright chest radiographs are compared to study dated 11/09/2020. The examination is degraded by portable technique and patient rotation. The cardiomediastinal silhouette is unremarkable. The lungs and pleural spaces are clear. No pneumothorax is seen. The bony thorax is grossly intact. IMPRESSION: No active disease in the chest. ACT 112: Negative or not required by law. Electronically signed by: Giovanny Hyde M.D. 12/18/2021 2:[address] 12/18/21 14:10 CT lumbar spine w con HISTORY: severe back pain IVDA TECHNIQUE: Multiaxial CT images of lumbar spine were performed following the intravenous administration of 120 cc of Optiray 320 and reformatted in the sagittal and coronal plane. COMPARISON STUDY: Lumbar spine CT 03/20/2013. Abdomen and pelvis CT 11/09/2020. FINDINGS: There is an old mild superior endplate compression deformity at L3, unchanged. No acute fracture or subluxation within the lumbar spine. There is mild disc space narrowing at L5-S1. No significant central canal narrowing by CT technique. No erosive changes or paravertebral edema identified. IMPRESSION: 1. No acute fractures identified within the lumbar spine. 2. Old mild superior endplate compression deformity at L3, unchanged. ACT 112: Negative or not required by law. Electronically signed by: Edison Quintanilla M.D. 12/18/2021 4:21 PM Discharge Plan Visit Data Chief Complaint: Illness Stated Complaint: LOWER BACK PAIN, HEADACHE, LOSS OF VOICE, FEVER ED Provider: Hilario Villalba Discharge Problem: Back pain, Abdominal pain, IVDA (intravenous drug abuse) complicating , Fever Patient Disposition: Admitted As Inpatient Discharge Instructions Interventions: ED Discharge Assessment Last Done: 12/18/21 19:23
[2021-12-18 14:25] LABS: Basophils # (auto) 0.02 K/uL (0-0.2); Basophils % (auto) 0.2 %; Hemoglobin 12.4 g/dl (12.0-16.0); Immature Granulocytes # (auto) 0.06 K/uL (0.00-0.02); Immature Granulocytes % (auto) 0.6 %; Lymphocytes % (auto) 9.4 %; Mean Corpuscular Hgb Conc 33.5 g/dL (32.0-36.0); Mean Corpuscular Volume 95.6 fL (80.0-100.0); Mean Platelet Volume 10.2 fL (9.4-12.3); Monocytes # (auto) 0.95 K/uL (0.24-0.82); Neutrophils # (auto) 8.58 K/uL (1.4-6.5); Neutrophils % (auto) 80.8 %; Platelet Count 245 K/uL (130-400); RDW Coefficient of Variation 11.9 % (11.5-14.5); RDW Standard Deviation 41.5 fL (36.4-46.3); Red Blood Count 3.87 M/uL (3.93-5.22); White Blood Count 10.61 K/ul (4.8-10.8)
[2021-12-18 14:36] LABS: INR 1.1 (0.9-1.1); Partial Thromboplastin Ratio 1.1; Partial Thromboplastin Time 30.1 Seconds (21.0-31.0); Prothrombin Time 11.4 Seconds (9.0-12.0)
[2021-12-18 14:37] LABS: BUN Creatinine Ratio 10.1 (10-20); Creatinine Clr Calc Pharmacy 112.2 ml/min; Est GFR (African American) 140.2 ml/min; Potassium 3.5 mmol/L (3.5-5.1)
[2021-12-18 14:38] LABS: Albumin Globulin Ratio 1.1 (0.9-2); Albumin Level 4.1 gm/dl (3.4-5.0); Bilirubin,Total 1.3 mg/dl (0.2-1.0); Calcium 9.4 mg/dl (8.5-10.1); Globulin 3.7 gm/dl (2.5-4.0); Magnesium 1.8 mg/dl (1.7-2.4); Total Protein 7.8 gm/dl (6.0-8.3)
[2021-12-18 14:42] LABS: Troponin I High Sensitivity 3.4 pg/ml (0-14)
[2021-12-18] MEDS ORDERED: MoRPHine SULFATE 4 MG/ML 1 ML CARP\\VIAL IV STA (14:47)
--- NOTE | 2021-12-18 14:47 | Electrocardiogram Report ---
Test Reason : Blood Pressure : / mmHG Vent. Rate : 098 BPM Atrial Rate : 098 BPM P-R Int : 136 ms QRS Dur : 090 ms QT Int : 350 ms P-R-T Axes : 067 070 045 degrees QTc Int : 446 ms Poor data quality, interpretation may be adversely affected Normal sinus rhythm Possible Left atrial enlargement Borderline ECG When compared with ECG of 02-FEB-2021 11:42, No significant change was found Confirmed by Bala García ([id number]) on 12/18/2021 2:47:29 PM Referred By: REFERRED SELF Confirmed By:Jose García
--- NOTE | 2021-12-18 14:51 | XRay Report ---
SINGLE VIEW CHEST CLINICAL HISTORY: Sepsis. FINDINGS: 2 AP, portable, upright chest radiographs are compared to study dated 11/09/2020. The examina tion is degraded by portable technique and patient rotation. The cardiomediastinal silhouette is unr emarkable. The lungs and pleural spaces are clear. No pneumothorax is seen. The bony thorax is grossl y intact. IMPRESSION: No active disease in the chest. ACT 112: Negative or not required by law. Electronically signed by: Giovanny Hyde M.D. 12/18/2021 2:50 PM
[2021-12-18 15:12] LABS: Pregnancy Test, Serum Negative (Negative)
[2021-12-18] MEDS ORDERED: OPTIRAY 320 125ml IV ONE (16:07)
--- NOTE | 2021-12-18 16:24 | CT Scan Report ---
CT lumbar spine w con HISTORY: severe back pain IVDA TECHNIQUE: Multiaxial CT images of lumbar spine were performed following the intravenous administrati on of 120 cc of Optiray 320 and reformatted in the sagittal and coronal plane. COMPARISON STUDY: Lumbar spine CT 03/20/2013. Abdomen and pelvis CT 11/09/2020. FINDINGS: There is an old mild superior endplate compression deformity at L3, unchanged. No acute fra cture or subluxation within the lumbar spine. There is mild disc space narrowing at L5-S1. No signifi cant central canal narrowing by CT technique. No erosive changes or paravertebral edema identified. IMPRESSION: 1. No acute fractures identified within the lumbar spine. 2. Old mild superior endplate compression deformity at L3, unchanged. ACT 112: Negative or not required by law. Electronically signed by: Edison Quintanilla M.D. 12/18/2021 4:21 PM
--- NOTE | 2021-12-18 16:30 | CT Scan Report ---
ABDOMEN AND PELVIS CT WITH IV CONTRAST CT DOSE: HISTORY: severe generalized abd pain and back pain IVDA TECHNIQUE: Multiaxial CT images of the abdomen and pelvis were performed following the use of intrave nous contrast. A dose lowering technique was utilized adhering to the principles of ALARA. COMPARISON STUDY: Abdomen and pelvis CT 11/09/2020. FINDINGS: Mild dependent changes seen at the lung bases. No pneumoperitoneum. No pneumatosis. Old mil d superior endplate compression deformity at L3, unchanged. The liver, gallbladder, pancreas, spleen, adrenal glands, and kidneys are unremarkable. The main portal vein is patent. Normal caliber abdomin al aorta with no evidence for dissection. No retroperitoneal lymphadenopathy. No pelvic lymphadenopat hy. The bladder, uterus, and ovaries are unremarkable. No bowel wall thickening or obstruction. The v isualized appendix is unremarkable. IMPRESSION: 1. No bowel wall thickening or obstruction. 2. The visualized appendix is unremarkable. 3. No hydronephrosis. ACT 112: Negative or not required by law. Electronically signed by: Edison Quintanilla M.D. 12/18/2021 4:28 PM
--- NOTE | 2021-12-18 16:31 | CT Scan Report ---
CT angio chest PE protocol CLINICAL HISTORY: Shortness of breath. IV drug abuse. Fever. Severe back pain. COMPARISON STUDY: 07/26/2016 CT DOSE: TECHNIQUE: CT Angio of the chest was performed.followed by image post processing with coronal, and s agittal MIP reformats. Contrast Volume: Optiray 320, 120 ml FINDINGS: Vasculature: There is homogeneous perfusion of the pulmonary vasculature bilaterally. No intraluminal filling defects or evidence for pulmonary embolus is seen. Airway: The airway is clear. No endobronchial lesion is identified. Lungs: The lungs are clear of acute alveolar opacities, air bronchograms or pulmonary nodules. Pleura: There is no evidence for pleural effusion. There is no evidence for pneumothorax. Mediastinum: There is no evidence for pathologic adenopathy. The heart size is within normal limits. The thoracic aorta is within normal limits. There is no evidence for pericardial effusion. Upper abdomen:The adrenal glands are normal bilaterally. Osseous structures: The thoracic vertebral bodies are intact. There is no paraspinal soft tissue swe lling present. Impression: 1. No CTA evidence for pulmonary embolus. 2. No acute chest disease. 3. Negative CT of the thoracic spine ACT 112: Negative or not required by law. Electronically signed by: Louis Lowery M.D. 12/18/2021 4:30 PM
[2021-12-18] MEDS ORDERED: NORMOSOL-R 2,000 ML IV ONE (17:08)
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
[2021-12-18 19:00] LABS: Appearance Urine Clear (Clear); Bacteria Urine Automated Negative (Negative); Bilirubin Urine Negative (Negative); Blood Urine Negative (Negative); Color Urine Yellow; Epithelial Cell Urine Auto 20-30 /lpf (0-5); Glucose Urine UA Trace (Negative); Ketones Urine 1+ (Negative); Leukocyte Esterase Urine Negative (Negative); Nitrite Urine Negative (Negative); Protein Urine Trace (Negative); RBC Urine Automated 0-4 /hpf (0-4); Specific Gravity Urine > 1.045 (1.000-1.030); Urobilinogen Urine Negative (Negative); pH Urine 6.5 (4.5-7.5)
[2021-12-18 19:19] LABS: Amphetamines+Metham, Urine Pos (Neg); Barbiturates, Urine Neg (Neg); Benzodiazepine, Urine Pos (Neg); Cocaine, Urine Neg (Neg); MDMA (Ecstacy), Urine Neg (Neg); Methadone, Urine Neg (Neg); Opiate, Urine Pos (Neg); Phencyclidine, Urine Neg (Neg)
[2021-12-18] MEDS ORDERED: ONDANSETRON INJ 2 MG/ML 2 ML VIAL IV PRN (19:54)
[2021-12-18] MEDS ORDERED: POLYETHYLENE (MIRALAX) 17 GM PACK PO PRN (19:54)
[2021-12-18] MEDS: ACETAMINOPHEN 500 MG TAB PO SCH (21:13)
[2021-12-18] MEDS: CYCLOBENZAPRINE HCL 10 MG TAB PO PRN (21:14)
[2021-12-18] MEDS: LIDOCAINE 5% 1 PATCH TD SCH (21:45)
[2021-12-19 04:56] LABS: A calco-baum cmplx NotReported Not Detected (NotDetected); Bact fragilis Not Reported Not Detected (NotDetected); C auris Not Reported Not Detected (NotDetected); Calbicans Not Reported Not Detected (NotDetected); Candida glabrata Not Reported Not Detected (NotDetected); Candida krusei Not Reported Not Detected (NotDetected); Cneoformans/gatti Not Reported Not Detected (NotDetected); Cparapsilosis Not Reported Not Detected (NotDetected); Ctropicalis Not Reported Not Detected (NotDetected); E cloacae compx Not Reported Not Detected (NotDetected); Efaecalis Not Reported Not Detected (NotDetected); Efaecium Not Reported Not Detected (NotDetected); Enterobacterales Not Reported Not Detected (NotDetected); Escherichia coli Not Reported Not Detected (NotDetected); H influenzae Not Reported Not Detected (NotDetected); K aerogenes Not Reported Not Detected (NotDetected); Koxytoca Not Reported Not Detected (NotDetected); Kpneumoniae grp Not Reported Not Detected (NotDetected); Lmonocyt Not Reported Not Detected (NotDetected); N meningitidis Not Reported Not Detected (NotDetected); P aeruginosa Not Reported Not Detected (NotDetected); Proteus spp Not Reported Not Detected (NotDetected); Salmonella spp Not Reported Not Detected (NotDetected); Smarcescens Not Reported Not Detected (NotDetected); Staph lugdunensis Not Reported Not Detected (NotDetected); Staph spp. Not Reported DETECTED (NotDetected); Staphaureus Not Reported DETECTED (NotDetected); Staphepi Not Reported Not Detected (NotDetected); Staphylococcus spp. DETECTED (NotDetected); Stenmaltophilia Not Reported Not Detected (NotDetected); Strep agal(GrpB) Not Reported Not Detected (NotDetected); Strep pneum Not Reported Not Detected (NotDetected); Strep pyog (GrpA) Not Reported Not Detected (NotDetected); Strep spp Not Reported Not Detected (NotDetected); mecAC+MREJ Resistant Gene MRSA Not Detected (NotDetected)
[2021-12-19] MEDS ORDERED: VANCOMYCIN CONSULT ACTIVE PRN (05:24)
[2021-12-19] MEDS: KETOROLAC TROMETHAMINE 15 MG/ML VIAL IV PRN ×2 (05:25→14:55)
[2021-12-19] MEDS: ACETAMINOPHEN 500 MG TAB PO SCH ×3 (05:25→22:49)
[2021-12-19] MEDS ORDERED: VANCOMYCIN HCL 1,250 MG in SODIUM CHLORIDE 0.9% 250 ML IV ONE (05:45)
[2021-12-19] MEDS ORDERED: ceFAZolin 2000MG 2,000 MG/15 ML SYR IV SCH ×2 (07:00→08:00)
[2021-12-19] MEDS: ceFAZolin 2000MG 2,000 MG/15 ML SYR IV SCH ×2 (08:14→16:19)
--- NOTE | 2021-12-19 09:35 | Hospitalist Progress Note ---
Date of Service December 19, 2021 Assessment & Plan (1) Gram-positive cocci bacteremia: (2) IVDU (intravenous drug user): (3) Sacroiliac joint pain: (4) Back pain: Plan: This is a 26yo F with PMH of IV drug abuse who presented to ER with c/o left low back pain with radiation to left buttock and to left lower abdomen that started yesterday. Slightly tachycardic, otherwise vital signs wnl No leukocytosis, normal lactate and procalcitonin, negative COVID-19 test, negative HCG Admitting utox positive for methamphetamines, opioids and benzodiazepines - last endorses injecting meth a few weeks ago. Seen in ED for heroin abuse in the past L-spine CT: No acute fractures, Old mild superior endplate compression deformity at L3, unchanged CTA Chest: No CTA pulmonary embolus. No acute chest disease. Negative CT of the thoracic spine CT Abd/Pelvis: No bowel wall thickening or obstruction. The visualized appendix is unremarkable. No hydronephrosis Blood cultures from 12/18/21 growing gram-positive cocci in clusters. Sensitivities pending 2D echo ordered to evaluate for infective endocarditis Consulted ortho spine for concern of discitis or epidural abscess in setting of IV drug use. Discussed with Dr. Sage, who reviewed lumbar CT scan and recommends MRI lumbar spine Pain mgmt evaluated and recommends continued Toradol PRN, K pad, avoiding narcotics and outpatient setting follow-up (5) Hypokalemia: Plan: K of 3.1. Replaced. BMP tomorrow DVT ppx: SCDs, early ambulation for now Patient seen in collaboration with Dr. Guzman. Please see addendum. Admission and Anticipated Discharge Date Admission Date: December 18, 2021 Supervising Physician Co-Signing Physician Notes 26-year-old lady with PMH of IV drug abuse who presented to the ER with complaint of worsening left low back pain associated with fever on and off [maximum measured 103F] for 2 days [employer]. She was found to have GPC bacteremia, MRSA negative and serology. Continue with Ancef 12/19. Repeat blood culture at 24 hours and then every 48 hours until negative. Echo. ID consult. Orthospine consult due to bacteremia and low back pain. Await MRI lumbar spine. IV fluid for the time being due to blood pressure being low normal and tachycardia. T- max of 38.6C. Pain management and nausea control. Upon examination: GENERAL: Alert and oriented x3. NAD, on RA. HEENT: No pallor, no icterus. Pupils equal, round and reactive to light. Oral mucosa moist. NECK: No JVD, no neck masses. HEART: S1 and S2 heard. Regular rate and rhythm. No murmur, no gallop. RESPIRATORY SYSTEM: Normal AP diameter. No accessory muscle use. No wheezing, no crackles. ABDOMEN: Soft, bowel sounds present, nontender, no distention. CENTRAL NERVOUS SYSTEM: No facial droop. Speech is clear. Obeys simple commands. Moves extremities. EXTREMITIES: No edema, no erythema seen. No vertebral tenderness noted on exam, paraspinal tenderness on the left lower back. I have seen and examined the patient and have discussed the case with the provider above. I agree with the assessment and plan as stated. Subjective Patient seen and examined in 356-2. Continues to have Left lower back pain that radiates towards flank as well as into left buttocks. Pain is described as sharp and exacerbated with movement. Denies any fever or chills. Tolerating diet without nausea or vomiting. No chest pain, shortness of breath, dysuria, diarrhea or constipation. Admits to IV drug use within the past month, most recently injecting meth. Admitting tox screen positive for methamphetamines, opioids and benzodiazepines. Review of Systems Review of Systems: At least ten systems reviewed and negative except as noted in the HPI. Physical Exam Physical Exam: Gen: WD/WN, NAD, resting in bed, A&Ox3 HEENT: Normocephalic, atraumatic, conjunctivae moist, sclerae anicteric, mucous membranes moist Lung: Clear to Auscultation bilaterally, no wheezes/rales/rhonchi Heart: tachycardic rate, regular rhythm, no murmurs, rubs, or gallops Abdomen: Soft, +LLQ pain extending from back, +BS x 4 Extremities: L paraspinal pain to palpation with extension around to flank. No edema Skin: Warm, no rash, + track willis over antecubital veins Results & Data Results & Data ([facility]) Vital Signs (Past 12 Hours) Vital Signs Temp Pulse Resp BP Pulse Ox O2 Del Method 12/19/21 07:42 37.0 C 101 H 16 115/70 98 Room Air 12/18/21 23:35 37.2 C Laboratory Results Short CBC 12/19/21 Range/Units 09:21 WBC 10.10 (4.8-10.8) K/ul Hgb 10.4 L (12.0-16.0) g/dl Hct 31.1 L (34.1-44.9) % Plt Count 197 (130-400) K/uL BMP 12/19/21 09:21 Sodium 137 Potassium 3.1 L Chloride 106 Carbon Dioxide 26 BUN 3 L Creatinine 0.61 Glucose 116 H Calcium 7.9 L Liver Function 12/19/21 Range/Units 09:21 Total Bilirubin 0.7 D (0.2-1.0) mg/dl AST 21 (13-39) U/L ALT 41 (7-52) U/L Alkaline Phosphatase 48 (34-104) U/L Albumin 3.1 L (3.4-5.0) gm/dl Urine 12/18/21 Range/Units 18:41 Urine Color Yellow Urine Appearance Clear (Clear) Urine pH 6.5 (4.5-7.5) Ur Specific [place] > 1.045 H (1.000-1.030) Urine Protein Trace H (Negative) Urine Glucose (UA) Trace H (Negative) Diagnostic Findings Abdomen/Pelvis CT 12/18/21 14:[address] WITH IV CONTRAST CT DOSE: HISTORY: severe generalized abd pain and back pain IVDA TECHNIQUE: Multiaxial CT images of the abdomen and pelvis were performed following the use of intravenous contrast. A dose lowering technique was utilized adhering to the principles of ALARA. COMPARISON STUDY: Abdomen and pelvis CT 11/09/2020. FINDINGS: Mild dependent changes seen at the lung bases. No pneumoperitoneum. No pneumatosis. Old mild superior endplate compression deformity at L3, unchanged. The liver, gallbladder, pancreas, spleen, adrenal glands, and kidneys are unremarkable. The main portal vein is patent. Normal caliber abdominal aorta with no evidence for dissection. No retroperitoneal lymphadenopathy. No pelvic lymphadenopathy. The bladder, uterus, and ovaries are unremarkable. No bowel wall thickening or obstruction. The visualized appendix is unremarkable. IMPRESSION: 1. No bowel wall thickening or obstruction. 2. The visualized appendix is unremarkable. 3. No hydronephrosis. ACT 112: Negative or not required by law. Electronically signed by: Edison Quintanilla M.D. 12/18/2021 4:28 PM Chest CTA 12/18/21 14:10 CT angio chest PE protocol CLINICAL HISTORY: Shortness of breath. IV drug abuse. Fever. Severe back pain. COMPARISON STUDY: 07/26/2016 CT DOSE: TECHNIQUE: CT Angio of the chest was performed.followed by image post processing with coronal, and sagittal MIP reformats. Contrast Volume: Optiray 320, 120 ml FINDINGS: Vasculature: There is homogeneous perfusion of the pulmonary vasculature bilaterally. No intraluminal filling defects or evidence for pulmonary embolus is seen. Airway: The airway is clear. No endobronchial lesion is identified. Lungs: The lungs are clear of acute alveolar opacities, air bronchograms or pulmonary nodules. Pleura: There is no evidence for pleural effusion. There is no evidence for pneumothorax. Mediastinum: There is no evidence for pathologic adenopathy. The heart size is within normal limits. The thoracic aorta is within normal limits. There is no evidence for pericardial effusion. Upper abdomen:The adrenal glands are normal bilaterally. Osseous structures: The thoracic vertebral bodies are intact. There is no paraspinal soft tissue swelling present. Impression: 1. No CTA evidence for pulmonary embolus. 2. No acute chest disease. 3. Negative CT of the thoracic spine ACT 112: Negative or not required by law. Electronically signed by: Louis Lowery M.D. 12/18/2021 4:30 PM Chest X-Ray 12/18/21 14:10 SINGLE VIEW CHEST CLINICAL HISTORY: Sepsis. FINDINGS: 2 AP, portable, upright chest radiographs are compared to study dated 11/09/2020. The examination is degraded by portable technique and patient rotation. The cardiomediastinal silhouette is unremarkable. The lungs and pleural spaces are clear. No pneumothorax is seen. The bony thorax is grossly intact. IMPRESSION: No active disease in the chest. ACT 112: Negative or not required by law. Electronically signed by: Giovanny Hyde M.D. 12/18/2021 2:[address] 12/18/21 14:10 CT lumbar spine w con HISTORY: severe back pain IVDA TECHNIQUE: Multiaxial CT images of lumbar spine were performed following the intravenous administration of 120 cc of Optiray 320 and reformatted in the sagittal and coronal plane. COMPARISON STUDY: Lumbar spine CT 03/20/2013. Abdomen and pelvis CT 11/09/2020. FINDINGS: There is an old mild superior endplate compression deformity at L3, unchanged. No acute fracture or subluxation within the lumbar spine. There is mild disc space narrowing at L5-S1. No significant central canal narrowing by CT technique. No erosive changes or paravertebral edema identified. IMPRESSION: 1. No acute fractures identified within the lumbar spine. 2. Old mild superior endplate compression deformity at L3, unchanged. ACT 112: Negative or not required by law. Electronically signed by: Edison Quintanilla M.D. 12/18/2021 4:21 PM
[2021-12-19 09:51] LABS: Basophils # (auto) 0.01 K/uL (0-0.2); Basophils % (auto) 0.1 %; Eosinophils # (auto) 0.02 K/uL (0-0.50); Eosinophils % (auto) 0.2 %; Hematocrit (blood only) 31.1 % (34.1-44.9); Hemoglobin 10.4 g/dl (12.0-16.0); Immature Granulocytes # (auto) 0.06 K/uL (0.00-0.02); Immature Granulocytes % (auto) 0.6 %; Lymphocytes # (auto) 1.38 K/uL (1.2-3.4); Lymphocytes % (auto) 13.7 %; Mean Corpuscular Hemoglobin 32.2 pg (25.0-34.0); Mean Corpuscular Hgb Conc 33.4 g/dL (32.0-36.0); Mean Corpuscular Volume 96.3 fL (80.0-100.0); Mean Platelet Volume 9.5 fL (9.4-12.3); Monocytes # (auto) 0.92 K/uL (0.24-0.82); Monocytes % (auto) 9.1 %; Neutrophils # (auto) 7.71 K/uL (1.4-6.5); Neutrophils % (auto) 76.3 %; Platelet Count 197 K/uL (130-400); RDW Coefficient of Variation 11.6 % (11.5-14.5); RDW Standard Deviation 40.9 fL (36.4-46.3); Red Blood Count 3.23 M/uL (3.93-5.22)
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
[2021-12-19 11:19] LABS: Albumin Level 3.1 gm/dl (3.4-5.0); BUN Creatinine Ratio 4.9 (10-20); Bilirubin,Total 0.7 mg/dl (0.2-1.0); Calcium 7.9 mg/dl (8.5-10.1); Creatinine Clr Calc Pharmacy 126.9 ml/min; Potassium 3.1 mmol/L (3.5-5.1); Total Protein 6.1 gm/dl (6.0-8.3)
[2021-12-19] MEDS ORDERED: VANCOMYCIN HCL 1,000 MG in SODIUM CHLORIDE 0.9% 250 ML IV SCH (12:00)
[2021-12-19] MEDS: CYCLOBENZAPRINE HCL 10 MG TAB PO PRN ×2 (13:50→22:55)
[2021-12-19] MEDS ORDERED: VANCOMYCIN HCL 1,250 MG in SODIUM CHLORIDE 0.9% 250 ML IV SCH (14:00)
[2021-12-19] MEDS ORDERED: POTASSIUM CHLORIDE CRTAB 20 MEQ TABCR PO STA (15:10)
[2021-12-19] MEDS: LACTATED RINGER'S 1,000 ML IV SCH (15:44)
[2021-12-19] MEDS: LIDOCAINE 5% 1 PATCH TD SCH (20:00)
[2021-12-20] MEDS ORDERED: KETOROLAC TROMETHAMINE 15 MG/ML VIAL IV ONE (00:04)
[2021-12-20] MEDS ORDERED: GADOBUTROL 65ML VIAL IV ONE (00:49)
[2021-12-20] MEDS: ceFAZolin 2000MG 2,000 MG/15 ML SYR IV SCH ×3 (00:53→17:04)
[2021-12-20] MEDS: LACTATED RINGER'S 1,000 ML IV SCH (03:21)
[2021-12-20] MEDS: ACETAMINOPHEN 500 MG TAB PO SCH ×3 (06:20→23:27)
[2021-12-20 08:56] LABS: Anion Gap 7 (3-11); BUN Creatinine Ratio 10.7 (10-20); Blood Urea Nitrogen 6 mg/dl (6-23); Carbon Dioxide 23 mmol/L (21-32); Chloride 109 mmol/L (98-107); Creatinine Clr Calc Pharmacy 138.2 ml/min; Est GFR (African American) > 150.0 ml/min; Est GFR (Non-African American) 129.6 ml/min; Glucose 108 mg/dl (70-99(Fasting)); Potassium 3.7 mmol/L (3.5-5.1); Sodium 139 mmol/L (136-145)
[2021-12-20 09:01] LABS: Hematocrit (blood only) 26.7 % (34.1-44.9); Hemoglobin 9.1 g/dl (12.0-16.0); Mean Corpuscular Hemoglobin 32.3 pg (25.0-34.0); Mean Corpuscular Hgb Conc 34.1 g/dL (32.0-36.0); Mean Corpuscular Volume 94.7 fL (80.0-100.0); Mean Platelet Volume 9.4 fL (9.4-12.3); Platelet Count 175 K/uL (130-400); RDW Coefficient of Variation 11.7 % (11.5-14.5); RDW Standard Deviation 40.4 fL (36.4-46.3); Red Blood Count 2.82 M/uL (3.93-5.22); White Blood Count 8.02 K/ul (4.8-10.8)
--- NOTE | 2021-12-20 09:08 | Magnetic Resonance Report ---
MR lumbar spine wo/w con CLINICAL HISTORY: lower back pain, IV drug use, + blood cx. TECHNIQUE: Multiplanar multisequence images of the Lumbar Spine were performed with and without IV c ontrast. Contrast Volume: 6 ml of Gadavist COMPARISON: None. FINDINGS: There is no evidence for vertebral body fracture. The heights of the vertebral bodies are maintained. The vertebral bodies are in anatomic alignment. L5-S1: There is evidence for mild increased signal seen within the L5-S1 disc space level with a larg e disc protrusion/herniation seen extending posteriorly. There is evidence for mild enhancement of th e vertebral body endplates at the L5-S1 level. There is also enhancing epidural fluid collection post erior to the L5 and S1 segments. The findings are highly suspicious for the presence of discitis, ost eomyelitis and epidural abscess. T12-L1: The disc space height is maintained. There are no focal disc protrusions or extrusions ident ified. The thecal sac and epidural fat are maintained. The neural foramen are patent bilaterally. Th ere is no evidence for nerve root encroachment. The facet joints are within normal limits. L1-2: The disc space height is maintained. There are no focal disc protrusions or extrusions identif ied. The thecal sac and epidural fat are maintained. The neural foramen are patent bilaterally. Ther e is no evidence for nerve root encroachment. The facet joints are within normal limits. L2-3: The disc space height is maintained. There are no focal disc protrusions or extrusions identif ied. The thecal sac and epidural fat are maintained. The neural foramen are patent bilaterally. Ther e is no evidence for nerve root encroachment. The facet joints are within normal limits. L3-4: The disc space height is maintained. There are no focal disc protrusions or extrusions identif ied. The thecal sac and epidural fat are maintained. The neural foramen are patent bilaterally. Ther e is no evidence for nerve root encroachment. The facet joints are within normal limits. L4-5: The disc space height is maintained. There are no focal disc protrusions or extrusions identif ied. The thecal sac and epidural fat are maintained. The neural foramen are patent bilaterally. Ther e is no evidence for nerve root encroachment. The facet joints are within normal limits. IMPRESSION: MR findings most characteristic of discitis and osteomyelitis at L5-S1 with a large epidu ral abscess posterior to the L5 and S1 segments. Large disc protrusion is also present at this level. ACT 112: Negative or not required by law. Electronically signed by: Louis Lowery M.D. 12/20/2021 9:07 AM
--- NOTE | 2021-12-20 12:17 | Orthopedic Consultation ---
Date of Consultation December 20, 2021 Assessment & Plan (1) Abscess in epidural space of lumbar spine: Assessment epidural abscess L5-S1. Plan at this time would like her to remain on antibiotics for the next few days to see how she responds. She is neurologically intact there is no surgical urgency at this point. However if she does not improve in the next several days we may need to consider I&D. History of Present Illness Reason for Consultation: Back pain Attending Physician: Alfonzo Guzman MD History of Present Illness This is a 26-year-old female who presents with worsening back pain over the past few days. She denies any precipitating trauma fall or event. She does have a history of IV drug use. Work-up did demonstrate evidence of a epidural abscess at L5-S1 level. Today she is complaining of back pain only. She denies any numbness or tingling in the lower extremities. She is currently being managed with tramadol as we will try and avoid narcotic medications in light of her history. Allergies Allergy/AdvReac Type Severity Reaction Status Date / Time azithromycin [From Zithromax] Allergy Severe THROAT & Verified 12/18/21 18:14 FACE SWELLING, SOB, HIVES bee venom protein (honey bee) Allergy Severe Anaphylaxis Verified 12/18/21 18:14 diphenhydramine AdvReac Anxiety Unverified 12/18/21 18:16 Home Medications Medication Instructions Recorded Confirmed Type lrjzlok-pyvsstuugphpt-cqvawsjw 250 1 tab PO DIRECTED PRN Migraine 11/30/21 12/18/21 History mg-250 mg-65 mg tablet (Excedrin Headache Migraine) epinephrine 0.3 mg/0.3 mL 0.3 mg (0.3 mL) IM ONCE PRN 11/30/21 12/18/21 Rx injection syringe anaphylaxis #1 ea ibuprofen 200 mg tablet 200 mg PO BID PRN Pain 12/18/21 12/18/21 History Patient History Medical History (Updated 12/20/21 @ 12:17 by Franco Sage DO) Alcohol intoxication Constipation Headache IVDU (intravenous drug user) Myofascial pain Palpitations PCOS (polycystic ovarian syndrome) Sacroiliac joint pain Strep pharyngitis Unspecified asthma, uncomplicated (11/20/12) Surgical History History of laparoscopy Hx of tonsillectomy Family History Father Coronary heart disease Other Family history of heart attack Social History (Updated 12/18/21 @ 18:06 by Christi Osei PA-C) Smoking Status: Current every day smoker Tobacco Type: Cigarettes Cigarettes Per Day: 2-3; Second Hand Exposure: No; Do You Dip or Chew Tobacco: No; Tobacco Cessation Education Requested by Patient: No Hx Alcohol Use: No Hx Substance Use: Yes Last Used Substance Other:: In er pt admitted to using iv drugs, currently denying use at this time Preferred Language: Guatemalan Communication Ability: Effective Bartender Helper Required: No Beliefs That Will Affect Care: None marital status: Single Current Living Situation: Alone current occupational status: unemployed Other Information That Helps Us Care for You: No Feels Safe at Home: Yes Safety Concerns: Feels Safe At This Time Assistive Devices: None Physical Exam Physical Exam: On exam she is supine in bed. She does have good strength testing lower extremities. Sensory is intact. She is able to roll over and does have some superficial tenderness palpation lumbar spine. No abnormal markings noted. Results & Data ([facility]) Vital Signs (Past 12 Hours) Vital Signs Temp Pulse Resp BP Pulse Ox O2 Del Method 12/20/21 07:05 37.3 C 91 H 16 95/63 L 97 Room Air 12/20/21 01:33 37.5 C
--- NOTE | 2021-12-20 14:34 | Hospitalist Progress Note ---
Date of Service December 20, 2021 Assessment & Plan (1) Gram-positive cocci bacteremia: (2) Abscess in epidural space of lumbar spine: (3) IVDU (intravenous drug user): Plan: This is a 26yo F with PMH of IV drug abuse who presented to ER with c/o left low back pain with radiation to left buttock and to left lower abdomen that started yesterday. Slightly tachycardic, otherwise vital signs wnl No leukocytosis, normal lactate and procalcitonin, negative COVID-19 test, negative HCG Admitting utox positive for methamphetamines, opioids and benzodiazepines - admits to injecting Ecstasy and Fentanyl in the past 7 days Imaging on admission of CTA chest, CT abd/pelvis and L spine CT without acute changes Preliminary blood cultures from 12/18/21 growing gram-positive cocci in clusters. Sensitivities pending. Continue IV Ancef Repeat cultures obtained on 12/19- pending ID consulted - awaiting recommendations 2D echo ordered to evaluate given gram positive bacteremia- normal EF, no evidence of thrombus or wall motion abnormality MRI of lumbar spine most characteristic of discitis and osteomyelitis at L5-S1 with a large epidural abscess posterior to the L5 and S1 segments. Large disc protrusion is also present at this level Dr. Sage evaluated patient and found to be neurologically intact. Continue IV antibiotics and monitor closely; no surgical urgency at this time but if no improvement will need to consider I&D Notified by RN regarding urinary incontinence episodes x 2 this afternoon. No fecal incontinence or LLE weakness. Dr. Sage updated, will continue to monitor closely (4) Sacroiliac joint pain: Plan: In setting of epidural abscess Evaluated by pain mgmt and recommends continued Toradol PRN, K pad, avoiding samantha cotics if possible due to abuse history (5) Hypokalemia: Plan: K of 3.1 on admission. Replaced. Potassium wnl today DVT ppx: SCDs, early ambulation for now Patient seen in collaboration with Dr. Guzman. Please see addendum. Admission and Anticipated Discharge Date Admission Date: December 19, 2021 Supervising Physician Co-Signing Physician Notes 26-year-old lady with PMH of IV drug abuse who presented to the ER with complaint of worsening left low back pain associated with fever on and off [maximum measured 103F] for 2 days PART TIME. She was found to have GPC bacteremia, MRSA negative in serology. Continue with Ancef 12/19. Repeat blood culture 12/19, if positive repeat every 48 hours until negative. 12/19 Echo w/ no valvular abnormality. ID consult. Orthospine on board. MR L-spine: discitis and osteomyelitis at L5-S1 with a large epidural abscess posterior to the L5 and S1 segments. Large disc protrusion is also present at this level. IV fluid for the time being due to blood pressure being low normal and tachycardia. Remains on/off febrile. Pain management and nausea control. Pt complaining of some urinary incontinence. Upon examination: GENERAL: Alert and oriented x3. NAD, on RA. HEENT: No pallor, no icterus. Pupils equal, round and reactive to light. Oral mucosa moist. NECK: No JVD, no neck masses. HEART: S1 and S2 heard. Regular rate and rhythm. No murmur, no gallop. RESPIRATORY SYSTEM: Normal AP diameter. No accessory muscle use. No wheezing, no crackles. ABDOMEN: Soft, bowel sounds present, nontender, no distention. CENTRAL NERVOUS SYSTEM: No facial droop. Speech is clear. Obeys simple commands. Moves extremities. EXTREMITIES: No edema, no erythema seen. No vertebral tenderness noted on exam, paraspinal tenderness on the left lower back. I have seen and examined the patient and have discussed the case with the provider above. I agree with the assessment and plan as stated. Subjective Patient seen and examined in 356-2. Continues to have Left lower back pain that radiates towards flank as well as into left buttocks. Sleeping on and off throughout day. Does indorse urinary incontinence episode just prior to exam. Did not have sensation she needed to urinate until mattress pad was wet. No fecal incontinence. No weakness in left lower extremity. Denies fever, chills, CP, SOB, N/V/abdominal pain, dysuria. Upon further discussion, patient admits to injecting Ecstasy and Fentanyl in the past week. Has gone through rehab process in the past. Review of Systems Review of Systems: At least ten systems reviewed and negative except as noted in the HPI. Physical Exam Physical Exam: Gen: WD/WN, NAD, resting in bed, A&Ox3, anxious HEENT: Normocephalic, atraumatic, conjunctivae moist, sclerae anicteric, mucous membranes moist Lung: Clear to Auscultation bilaterally, no wheezes/rales/rhonchi Heart: tachycardic rate, regular rhythm, no murmurs, rubs, or gallops Abdomen: Soft, +LLQ pain extending from back, +BS x 4 Extremities: L paraspinal pain to palpation with extension around to flank. No edema, no weakness Skin: Warm, no rash, + track willis over antecubital veins Results & Data Results & Data ([facility]) Vital Signs (Past 12 Hours) Vital Signs Temp Pulse Resp BP Pulse Ox O2 Del Method 12/20/21 07:05 37.3 C 91 H 16 95/63 L 97 Room Air Laboratory Results Short CBC 12/20/21 Range/Units 08:16 WBC 8.02 (4.8-10.8) K/ul Hgb 9.1 L (12.0-16.0) g/dl Hct 26.7 L (34.1-44.9) % Plt Count 175 (130-400) K/uL BMP 12/20/21 08:16 Sodium 139 Potassium 3.7 Chloride 109 H Carbon Dioxide 23 BUN 6 Creatinine 0.56 L Glucose 108 H Calcium 8.0 L Diagnostic Findings Abdomen/Pelvis CT 12/18/21 14:[address] WITH IV CONTRAST CT DOSE: HISTORY: severe generalized abd pain and back pain IVDA TECHNIQUE: Multiaxial CT images of the abdomen and pelvis were performed following the use of intravenous contrast. A dose lowering technique was utilized adhering to the principles of ALARA. COMPARISON STUDY: Abdomen and pelvis CT 11/09/2020. FINDINGS: Mild dependent changes seen at the lung bases. No pneumoperitoneum. No pneumatosis. Old mild superior endplate compression deformity at L3, unchanged. The liver, gallbladder, pancreas, spleen, adrenal glands, and kidneys are unremarkable. The main portal vein is patent. Normal caliber abdominal aorta with no evidence for dissection. No retroperitoneal lymphadenopathy. No pelvic lymphadenopathy. The bladder, uterus, and ovaries are unremarkable. No bowel wall thickening or obstruction. The visualized appendix is unremarkable. IMPRESSION: 1. No bowel wall thickening or obstruction. 2. The visualized appendix is unremarkable. 3. No hydronephrosis. ACT 112: Negative or not required by law. Electronically signed by: Edison Quintanilla M.D. 12/18/2021 4:28 PM Chest CTA 12/18/21 14:10 CT angio chest PE protocol CLINICAL HISTORY: Shortness of breath. IV drug abuse. Fever. Severe back pain. COMPARISON STUDY: 07/26/2016 CT DOSE: TECHNIQUE: CT Angio of the chest was performed.followed by image post processing with coronal, and sagittal MIP reformats. Contrast Volume: Optiray 320, 120 ml FINDINGS: Vasculature: There is homogeneous perfusion of the pulmonary vasculature bilaterally. No intraluminal filling defects or evidence for pulmonary embolus is seen. Airway: The airway is clear. No endobronchial lesion is identified. Lungs: The lungs are clear of acute alveolar opacities, air bronchograms or pulmonary nodules. Pleura: There is no evidence for pleural effusion. There is no evidence for pneumothorax. Mediastinum: There is no evidence for pathologic adenopathy. The heart size is within normal limits. The thoracic aorta is within normal limits. There is no evidence for pericardial effusion. Upper abdomen:The adrenal glands are normal bilaterally. Osseous structures: The thoracic vertebral bodies are intact. There is no par aspinal soft tissue swelling present. Impression: 1. No CTA evidence for pulmonary embolus. 2. No acute chest disease. 3. Negative CT of the thoracic spine ACT 112: Negative or not required by law. Electronically signed by: Louis Lowery M.D. 12/18/2021 4:30 PM Chest X-Ray 12/18/21 14:10 SINGLE VIEW CHEST CLINICAL HISTORY: Sepsis. FINDINGS: 2 AP, portable, upright chest radiographs are compared to study dated 11/09/2020. The examination is degraded by portable technique and patient rotation. The cardiomediastinal silhouette is unremarkable. The lungs and pleural spaces are clear. No pneumothorax is seen. The bony thorax is grossly intact. IMPRESSION: No active disease in the chest. ACT 112: Negative or not required by law. Electronically signed by: Giovanny Hyde M.D. 12/18/2021 2:[address] 12/18/21 14:10 CT lumbar spine w con HISTORY: severe back pain IVDA TECHNIQUE: Multiaxial CT images of lumbar spine were performed following the intravenous administration of 120 cc of Optiray 320 and reformatted in the sagittal and coronal plane. COMPARISON STUDY: Lumbar spine CT 03/20/2013. Abdomen and pelvis CT 11/09/2020. FINDINGS: There is an old mild superior endplate compression deformity at L3, unchanged. No acute fracture or subluxation within the lumbar spine. There is mi ld disc space narrowing at L5-S1. No significant central canal narrowing by CT technique. No erosive changes or paravertebral edema identified. IMPRESSION: 1. No acute fractures identified within the lumbar spine. 2. Old mild superior endplate compression deformity at L3, unchanged. ACT 112: Negative or not required by law. Electronically signed by: Edison Quintanilla M.D. 12/18/2021 4:21 PM Lumbar Spine MRI 12/19/21 14:31 MR lumbar spine wo/w con CLINICAL HISTORY: lower back pain, IV drug use, + blood cx. TECHNIQUE: Multiplanar multisequence images of the Lumbar Spine were performed with and without IV contrast. Contrast Volume: 6 ml of Gadavist COMPARISON: None. FINDINGS: There is no evidence for vertebral body fracture. The heights of the vertebral bodies are maintained. The vertebral bodies are in anatomic alignment. L5-S1: There is evidence for mild increased signal seen within the L5-S1 disc space level with a large disc protrusion/herniation seen extending posteriorly. There is evidence for mild enhancement of the vertebral body endplates at the L5-S1 level. There is also enhancing epidural fluid collection posterior to the L5 and S1 segments. The findings are highly suspicious for the presence of discitis, osteomyelitis and epidural abscess. T12-L1: The disc space height is maintained. There are no focal disc protrusions or extrusions identified. The thecal sac and epidural fat are maintained. The neural foramen are patent bilaterally. There is no evidence for nerve root encroachment. The facet joints are within normal limits. L1-2: The disc space height is maintained. There are no focal disc protrusions or extrusions identified. The thecal sac and epidural fat are maintained. The neural foramen are patent bilaterally. There is no evidence for nerve root encroachment. The facet joints are within normal limits. L2-3: The disc space height is maintained. There are no focal disc protrusions or extrusions identified. The thecal sac and epidural fat are maintained. The neural foramen are patent bilaterally. There is no evidence for nerve root encroachment. The facet joints are within normal limits. L3-4: The disc space height is maintained. There are no focal disc protrusions or extrusions identified. The thecal sac and epidural fat are maintained. The neural foramen are patent bilaterally. There is no evidence for nerve root encroachment. The facet joints are within normal limits. L4-5: The disc space height is maintained. There are no focal disc protrusions or extrusions identified. The thecal sac and epidural fat are maintained. The neural foramen are patent bilaterally. There is no evidence for nerve root encroachment. The facet joints are within normal limits. IMPRESSION: MR findings most characteristic of discitis and osteomyelitis at L5- S1 with a large epidural abscess posterior to the L5 and S1 segments. Large disc protrusion is also present at this level. ACT 112: Negative or not required by law. Electronically signed by: Louis Lowery M.D. 12/20/2021 9:07 AM
[2021-12-20] MEDS ORDERED: SODIUM CHLORIDE 0.9% 1000ML 1,000 ML IV SCH (17:15)
[2021-12-20] MEDS: CYCLOBENZAPRINE HCL 10 MG TAB PO PRN (17:15)
[2021-12-20] MEDS ORDERED: SUMAtriptan succinate 25 MG TAB PO PRN (18:08)
[2021-12-20] MEDS: LIDOCAINE 5% 1 PATCH TD SCH (20:19)
[2021-12-20] MEDS: KETOROLAC TROMETHAMINE 15 MG/ML VIAL IV PRN (20:19)
[2021-12-21] MEDS: ceFAZolin 2000MG 2,000 MG/15 ML SYR IV SCH ×4 (00:49→21:59)
[2021-12-21] MEDS: KETOROLAC TROMETHAMINE 15 MG/ML VIAL IV PRN ×2 (03:10→16:26)
[2021-12-21] MEDS: ACETAMINOPHEN 500 MG TAB PO SCH ×3 (05:34→21:59)
[2021-12-21 07:42] LABS: 7-Aminoclonaz, Confirm NEGATIVE ng/mL (<25); Amphetamine Urine, Confirm 3220 ng/mL (<250); Codeine Urine NEGATIVE ng/mL (<50); Hydro-Alp Ur, GC/MS 55 ng/mL (<25); Hydrocodone Urine NEGATIVE ng/mL (<50); Hydromor Urine NEGATIVE ng/mL (<50); Hydroxyethylflurazepam, Conf NEGATIVE ng/mL (<50); Hydroxymidazolam Ur, GC/MS NEGATIVE ng/mL (<50); Hydroxytriazolam NEGATIVE ng/mL (<50); Lorazepam, Ur GC/MS NEGATIVE ng/mL (<50); Methamphetamine, Ur Confirm 7020 ng/mL (<250); Morphine Urine 3090 ng/mL (<50); Nordiazepam, Confirm NEGATIVE ng/mL (<50); Norhydrocodone Conf Ur NEGATIVE ng/mL (<50); Noroxycodone Urine NEGATIVE ng/mL (<50); Oxazepam Ur, GC/MS NEGATIVE ng/mL (<50); Oxycodone Urine NEGATIVE ng/mL (<50); Oxymorph Urine NEGATIVE ng/mL (<50); Temazepam, Confirm NEGATIVE ng/mL (<50)
[2021-12-21 08:02] LABS: Hematocrit (blood only) 27.1 % (34.1-44.9); Mean Corpuscular Hemoglobin 31.9 pg (25.0-34.0); Mean Corpuscular Hgb Conc 33.2 g/dL (32.0-36.0); Mean Corpuscular Volume 96.1 fL (80.0-100.0); Mean Platelet Volume 10.4 fL (9.4-12.3); Platelet Count 213 K/uL (130-400); RDW Coefficient of Variation 11.4 % (11.5-14.5); RDW Standard Deviation 40.4 fL (36.4-46.3); Red Blood Count 2.82 M/uL (3.93-5.22); White Blood Count 7.83 K/ul (4.8-10.8)
[2021-12-21 08:21] LABS: Anion Gap 6 (3-11); BUN Creatinine Ratio 13.5 (10-20); Blood Urea Nitrogen 7 mg/dl (6-23); Calcium 8.1 mg/dl (8.5-10.1); Carbon Dioxide 24 mmol/L (21-32); Chloride 106 mmol/L (98-107); Creatinine Clr Calc Pharmacy 148.8 ml/min; Est GFR (African American) > 150.0 ml/min; Est GFR (Non-African American) 132.8 ml/min; Glucose 91 mg/dl (70-99(Fasting)); Potassium 3.7 mmol/L (3.5-5.1); Sodium 136 mmol/L (136-145)
[2021-12-21] MEDS: CYCLOBENZAPRINE HCL 10 MG TAB PO PRN (14:12)
--- NOTE | 2021-12-21 15:52 | Hospitalist Progress Note ---
Date of Service December 21, 2021 Assessment & Plan (1) Gram-positive cocci bacteremia: (2) Abscess in epidural space of lumbar spine: (3) IVDU (intravenous drug user): Plan: 26-year-old lady with history of IV drug abuse who presented to the ER 12/18 with complaint of worsening left low back pain associated with fever on and off [maximum measured 103F] for 2 days [employer]LECTRONIC [employer]. Of note, patient reports injecting ecstasy and fentanyl every couple of weeks, last dose of both within 1 week prior to arrival per patient. She is being managed for the following: #. MSSA bacteremia #. Lumbar spine discitis and osteomyelitis and epidural abscess 12/18 blood culture positive for MSSA 12/19 blood culture [after 2 doses of IV cefazolin]: No growth so far 12/19 echo with no valvular abnormality. 12/19 lumbar spine MRI: Discitis and osteomyelitis at L5-S1 with large epidural abscess posterior to the L5 and S1 segments. Large disc protrusion is also present at this level. Admitting U tox positive for methamphetamines/opiates/benzodiazepines. Other admitting imaging CTA chest/CT abdomen pelvis and L-spine CT reviewed. Continue with cefazolin 12/19 a.m. Patient with urinary incontinence and radicular pain to back of left thigh up to the knee. Orthospine on board, under observation for evaluation for ? Surgical management versus conservative management. ID consulted, await recommendation. Due to her history, avoid opiate pain meds. Patient counseled against drug abuse, patient voiced understanding. Pain management with Tylenol, lidocaine patch, heat application, ketorolac, Flexeril. Patient afebrile last 24 hours, vitals getting better. DVT prophylaxis: Lovenox Full code 12/20: Patient's mother updated over the phone conversation, answered all her questions to her full satisfaction. Admission and Anticipated Discharge Date Admission Date: December 19, 2021 Subjective Patient seen and examined at bedside as a follow-up of bacteremia, abscess in epidural space of lumbar spine, lumbar spine osteomyelitis. Patient was lying in bed, on room air, NAD, no new acute events overnight. Patient reports ongoing urinary incontinence, patient is on purewick catheter now. Patient reports left low back pain radiating towards her back of left thigh. Patient reports pain more bearable compared to yesterday, patient on Tylenol/lidocaine patch/ketorolac, avoiding opiates given her patient history. Motor strength in all 4 extremities 5/5. Denies fever but reports sweats overnight. Denies chest pain or shortness of breath or nausea or vomiting or belly pain. Physical Exam Physical Exam: GENERAL: Alert and oriented x3. NAD, on RA. HEENT: No pallor, no icterus. Pupils equal, round and reactive to light. Oral mucosa moist. NECK: No JVD, no neck masses. HEART: S1 and S2 heard. Regular rate and rhythm. No murmur, no gallop. RESPIRATORY SYSTEM: Normal AP diameter. No accessory muscle use. No wheezing, no crackles. ABDOMEN: Soft, bowel sounds present, nontender, no distention. CENTRAL NERVOUS SYSTEM: No facial droop. Speech is clear. Obeys simple commands. Moves extremities. Power 5/5 all extremities EXTREMITIES: No edema, no erythema seen. PUrewick catheter in place. No vertebral tenderness noted on exam, paraspinal tenderness on the left lower back. Results & Data Results & Data ([facility]) Vital Signs (Past 12 Hours) Vital Signs Temp Pulse Resp BP Pulse Ox O2 Del Method 12/21/21 07:11 37.0 C 81 16 106/68 98 Room Air
[2021-12-21] MEDS: LIDOCAINE 5% 1 PATCH TD SCH (21:58)
[2021-12-22] MEDS: KETOROLAC TROMETHAMINE 15 MG/ML VIAL IV PRN ×3 (03:27→19:42)
[2021-12-22] MEDS: ACETAMINOPHEN 500 MG TAB PO SCH ×3 (06:12→22:48)
[2021-12-22 07:08] LABS: Hematocrit (blood only) 28.7 % (34.1-44.9); Hemoglobin 9.7 g/dl (12.0-16.0); Mean Corpuscular Hemoglobin 32.1 pg (25.0-34.0); Mean Corpuscular Hgb Conc 33.8 g/dL (32.0-36.0); Mean Platelet Volume 10.3 fL (9.4-12.3); Platelet Count 262 K/uL (130-400); RDW Coefficient of Variation 11.3 % (11.5-14.5); RDW Standard Deviation 39.5 fL (36.4-46.3); Red Blood Count 3.02 M/uL (3.93-5.22); White Blood Count 8.38 K/ul (4.8-10.8)
[2021-12-22 07:50] LABS: BUN Creatinine Ratio 21.1 (10-20); Calcium 8.3 mg/dl (8.5-10.1); Creatinine Clr Calc Pharmacy 135.8 ml/min; Est GFR (African American) 149.3 ml/min; Est GFR (Non-African American) 128.8 ml/min; Potassium 3.9 mmol/L (3.5-5.1)
[2021-12-22] MEDS: ceFAZolin 2000MG 2,000 MG/15 ML SYR IV SCH ×3 (08:27→23:24)
[2021-12-22] MEDS: ENOXAPARIN INJ 40 MG/0.4 ML SYR SQ SCH (08:36)
--- NOTE | 2021-12-22 09:12 | Orthopedic Progress Note ---
Date of Service December 22, 2021 Assessment & Plan (1) Abscess in epidural space of lumbar spine: Plan: 26-year-old female who presents with MSSA bacteremia and lumbar discitis/osteomyelitis plus epidural abscess at L5-S1. Patient is still neurologically intact. Ideally would treat this conservatively. Currently awaiting on infectious disease consult for antibiotic treatment plan. If she declines we will have to consider I&D. Pain management as per hospitalist team. We will continue to follow along. Admission and Anticipated Discharge Date Admission Date: December 19, 2021 Subjective Serrated this morning complains of back and left lower extremity pain. She states it is unchanged since admission. Last temperature was on December 20. D enies any bowel or bladder changes. Due to history of IV drug use she is on Tylenol and Toradol for pain control. Also has a lidocaine patch. She states these are not controlling her pain. Review of Systems Review of Systems: All systems reviewed & are unremarkable except as noted in HPI & below Physical Exam Physical Exam: She is lying in bed alert and oriented x3 moderately uncomfortable Strength is intact bilateral lower extremities Results & Data ([facility]) Vital Signs (Past 12 Hours) Vital Signs Temp Pulse Resp BP Pulse Ox O2 Del Method 12/22/21 07:33 37.4 C 82 16 102/67 98 Room Air 12/21/21 23:08 37.5 C 81 16 97/64 L 98 Room Air
[2021-12-22] MEDS: DICLOFENAC SOD 1% GEL 100 GM TUBE EXT SCH ×3 (11:05→23:25)
--- NOTE | 2021-12-22 18:33 | Hospitalist Progress Note ---
Date of Service December 22, 2021 Assessment & Plan (1) Gram-positive cocci bacteremia: (2) Abscess in epidural space of lumbar spine: (3) IVDU (intravenous drug user): Plan: 26-year-old lady with history of IV drug abuse who presented to the ER 12/18 with complaint of worsening left low back pain associated with fever on and off [maximum measured 103F] for 2 days [employer]. Of note, patient reports injecting ecstasy and fentanyl every couple of weeks, last dose of both within 1 week prior to arrival per patient. She is being managed for the following: #. MSSA bacteremia #. 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 12/19 lumbar spine MRI: Discitis and osteomyelitis at L5-S1 with large epidural abscess posterior to the L5 and S1 segments. Large disc protrusion is also present at this level. Admitting U tox positive for methamphetamines/opiates/benzodiazepines. Other admitting imaging CTA chest/CT abdomen pelvis and L-spine CT reviewed. Continue with cefazolin 12/19 a.m. Patient with urinary incontinence and radicular pain to back of left thigh up to the knee. Orthospine on board, under observation for evaluation for ? Surgical management versus conservative management. ID consulted, await recommendation. Due to her history, avoid opiate pain meds. Patient counseled against drug abuse, patient voiced understanding. Pain management with Tylenol, lidocaine patch, heat application, ketorolac, Flexeril, voltaren gel. Patient afebrile last 48 hours, vitals better. DVT prophylaxis: Lovenox Full code 12/20: Patient's mother updated over the phone conversation, answered all her questions to her full satisfaction. Admission and Anticipated Discharge Date Admission Date: December 19, 2021 Subjective Patient seen and examined at bedside as a follow-up of bacteremia, abscess in epidural space of lumbar spine, lumbar spine osteomyelitis. Patient was lying in bed, on room air, NAD, no new acute events overnight. Patient reports ongoing urinary incontinence, patient is on purewick catheter. Patient reports left low back pain radiating towards her back of left thigh. Patient reports pain more bearable at bedside exam, patient on Tylenol/lidocaine patch/ketorolac/voltaren gel/heat pad for pain Mx, avoiding opiates given her patient history. Motor strength in all 4 extremities 5/5. Denies fever but reports sweats overnight still. Denies chest pain or shortness of breath or nausea or vomiting or belly pain. Physical Exam Physical Exam: GENERAL: Alert and oriented x3. NAD, on RA. HEENT: No pallor, no icterus. Pupils equal, round and reactive to light. Oral mucosa moist. NECK: No JVD, no neck masses. HEART: S1 and S2 heard. Regular rate and rhythm. No murmur, no gallop. RESPIRATORY SYSTEM: Normal AP diameter. No accessory muscle use. No wheezing, no crackles. ABDOMEN: Soft, bowel sounds present, nontender, no distention. CENTRAL NERVOUS SYSTEM: No facial droop. Speech is clear. Obeys simple commands. Moves extremities. Power 5/5 all extremities EXTREMITIES: No edema, no erythema seen. PUrewick catheter in place. Results & Data Results & Data ([facility]) Vital Signs (Past 12 Hours) Vital Signs Temp Pulse Resp BP Pulse Ox O2 Del Method 12/22/21 14:04 37.2 C 69 16 99/64 L 98 Room Air 12/22/21 07:33 37.4 C 82 16 102/67 98 Room Air
[2021-12-22] MEDS: LIDOCAINE 5% 1 PATCH TD SCH (19:43)
[2021-12-22] MEDS: CYCLOBENZAPRINE HCL 10 MG TAB PO PRN (20:02)
[2021-12-23] MEDS: KETOROLAC TROMETHAMINE 15 MG/ML VIAL IV PRN ×2 (01:28→17:44)
[2021-12-23] MEDS: CYCLOBENZAPRINE HCL 10 MG TAB PO PRN ×2 (06:03→19:37)
[2021-12-23] MEDS: ACETAMINOPHEN 500 MG TAB PO SCH ×2 (06:03→15:21)
[2021-12-23] MEDS: DICLOFENAC SOD 1% GEL 100 GM TUBE EXT SCH ×3 (06:03→17:45)
[2021-12-23] MEDS: ceFAZolin 2000MG 2,000 MG/15 ML SYR IV SCH ×2 (07:42→16:17)
[2021-12-23] MEDS: ENOXAPARIN INJ 40 MG/0.4 ML SYR SQ SCH (07:44)
[2021-12-23 09:18] LABS: Hematocrit (blood only) 31.1 % (34.1-44.9); Hemoglobin 10.2 g/dl (12.0-16.0); Mean Corpuscular Hemoglobin 31.3 pg (25.0-34.0); Mean Corpuscular Hgb Conc 32.8 g/dL (32.0-36.0); Mean Corpuscular Volume 95.4 fL (80.0-100.0); Mean Platelet Volume 9.6 fL (9.4-12.3); Platelet Count 305 K/uL (130-400); RDW Coefficient of Variation 11.7 % (11.5-14.5); RDW Standard Deviation 40.8 fL (36.4-46.3); Red Blood Count 3.26 M/uL (3.93-5.22); White Blood Count 5.35 K/ul (4.8-10.8)
[2021-12-23 09:48] LABS: BUN Creatinine Ratio 22.5 (10-20); Est GFR (African American) 137.2 ml/min; Est GFR (Non-African American) 118.4 ml/min; Potassium 3.8 mmol/L (3.5-5.1)
[2021-12-23] MEDS ORDERED: MIDAZOLAM HCL 1 MG/ML 2ML VIAL ONE (11:17)
[2021-12-23] MEDS ORDERED: fentaNYL citrate 100 MCG/2 ML VIAL ONE (11:17)
[2021-12-23] MEDS ORDERED: KETAMINE 50 MG/5 ML SYRINGE ONE (11:17)
--- NOTE | 2021-12-23 12:45 | History & Physical Bridge Note ---
Date of Service December 23, 2021 History & Physical Bridge Note I have examined the patient, reviewed the History & Physical and in the interval since the performance of the History & Physical I have noted the following changes of clinical significance: Patient continues to have severe back and left leg pain. She has not improved with rest and IV antibiotics. Subsequently recommending urgent decompression L5-S1.
[2021-12-23] MEDS ORDERED: BUPIVACAINE/EPINEPHRINE 0.25% 1:200,000 30 ML VIAL ONE (12:49)
[2021-12-23] MEDS ORDERED: ceFAZolin 330 MG/ML 1 GM VIAL ONE (12:49)
[2021-12-23] MEDS ORDERED: GENTAMICIN SULFATE 40 MG/ML 2 ML VIAL ONE (13:24)
[2021-12-23] MEDS ORDERED: VANCOMYCIN HCL 1000MG/20ML VIAL ONE (13:24)
[2021-12-23] MEDS ORDERED: PROPOFOL IV EMULSION 10 MG/ML 20 ML VIAL IV ONE (13:31)
[2021-12-23] MEDS ORDERED: NEOSTIGMINE METHYLSULFATE 1 MG/ML 10ML VIAL ONE (13:31)
[2021-12-23] MEDS ORDERED: LARYING-O-JET KIT (LTA) ONE (13:31)
[2021-12-23] MEDS ORDERED: ePHEDrine sulfate 50 MG/ML AMP IV PRN (13:31)
[2021-12-23] MEDS ORDERED: ONDANSETRON INJ 2 MG/ML 2 ML VIAL IV PRN ×2 (13:31→15:27)
[2021-12-23] MEDS ORDERED: GLYCOPYRROLATE 0.2 MG/ML VIAL ONE (13:31)
[2021-12-23] MEDS ORDERED: fentaNYL citrate 100 MCG/2 ML VIAL IV PRN (13:31)
[2021-12-23] MEDS ORDERED: ATROPINE SULFATE 0.1 MG/ML 10ML SYR IV PRN (13:31)
[2021-12-23] MEDS ORDERED: HYDROmorphone INJ 2 MG/ML SYR/VIAL IV PRN (13:31)
[2021-12-23] MEDS ORDERED: PROMETHAZINE HCL 6.25 MG in SODIUM CHLORIDE 0.9% 50 ML IV PRN (13:31)
[2021-12-23] MEDS ORDERED: LIDOCAINE 2% MPF LOCAL 5 ML VIAL INFIL ONE (13:31)
[2021-12-23] MEDS ORDERED: ONDANSETRON INJ 2 MG/ML 2 ML VIAL ONE (13:31)
[2021-12-23] MEDS ORDERED: ROCURONIUM BROMIDE 10 MG/ML 5 ML VIAL IV ONE (13:31)
--- NOTE | 2021-12-23 13:31 | Anesthesiology Consultation ---
Date of Service December 23, 2021 Assessment & Plan Chart Review Chart Review: Acceptable Risk for Surgery and Patient NOT seen in Pre Admission Testing Consults Requested none ASA ASA3 Proposed Anesthesia Anesthesia Type: General History Surgery Operation Date: 12/23/21 11:50 Proposed Procedures p L5-S1 Lumbar Decompression - Franco Sage DO Height/Weight Height: 5 ft 5 in Weight: 59 kg Allergies Allergy/AdvReac Type Severity Reaction Status Date / Time azithromycin [From Zithromax] Allergy Severe THROAT & Verified 12/18/21 18:14 FACE SWELLING, SOB, HIVES bee venom protein (honey bee) Allergy Severe Anaphylaxis Verified 12/18/21 18:14 diphenhydramine AdvReac Anxiety Unverified 12/18/21 18:16 Medications Home Medications Medication Instructions Recorded Confirmed Last Taken yuzgywh-rooeosocxzaeb-rhgiqgzs 250 1 tab PO DIRECTED PRN Migraine 11/30/21 12/18/21 Unknown mg-250 mg-65 mg tablet (Excedrin Headache Migraine) epinephrine 0.3 mg/0.3 mL 0.3 mg (0.3 mL) IM ONCE PRN 11/30/21 12/18/21 Unknown injection syringe anaphylaxis #1 ea ibuprofen 200 mg tablet 200 mg PO BID PRN Pain 12/18/21 12/18/21 Unknown Active Medications Generic Name Dose Route Start Last Admin Trade Name Raffy PRN Reason Stop Dose Admin Acetaminophen 1,000 mg 12/18/21 22:00 12/23/21 06:03 Acetaminophen 500 Mg Tab PO 01/17/22 21:59 1,000 mg Q8H FELI Administration Cyclobenzaprine HCl 10 mg 12/18/21 19:54 12/23/21 06:03 Cyclobenzaprine Hcl 10 Mg Tab PO 01/17/22 19:53 10 mg Q8H PRN Administration Muscle Spasm Diclofenac Sodium 4 gm 12/22/21 12:00 12/23/21 12:07 Diclofenac Sod 1% Gel 100 Gm Tube EXT 01/21/22 10:44 Not Given Q6H FELI Protocol Enoxaparin Sodium 40 mg 12/22/21 09:00 12/23/21 07:44 Enoxaparin Inj 40 Mg/0.4 Ml Syr SQ 01/21/22 08:59 40 mg QAM FELI Administration Cefazolin Sodium 2,000 mg in 15 mls @ 3.75 mls/min 12/19/21 08:00 12/23/21 07:42 Ancef 2000mg IV 01/02/22 07:59 3.75 mls/min Q8H FELI Administration Ketorolac Tromethamine 10 mg 12/20/21 19:43 12/23/21 01:28 Ketorolac Tromethamine 15 Mg/Ml Vial IV 12/25/21 19:44 10 mg Q6H PRN Administration severe pain Lidocaine 1 patch 12/18/21 20:00 12/22/21 19:43 Lidocaine 5% 1 Patch TD 01/17/22 19:59 1 patch Q24H FELI Administration Miscellaneous 1 each 12/19/21 08:00 12/23/21 07:43 Remove Lidoderm Patch N/A 01/18/22 07:59 Not Given Q24H FELI Sumatriptan Succinate 25 mg 12/20/21 18:08 12/20/21 18:43 Sumatriptan Succinate 25 Mg Tab PO 01/19/22 18:07 25 mg DAILY PRN Administration Migraine Headache NPO Date Last Intake of Fluids: 12/22/21 Time Last Intake of Fluids: 21:00 Date Last Intake of Solids: 12/22/21 Time Last Intake of Solids: 21:00 Past Medical History Medical History (Updated 12/20/21 @ 12:17 by Franco Sage DO) Alcohol intoxication Constipation Headache IVDU (intravenous drug user) Myofascial pain Palpitations PCOS (polycystic ovarian syndrome) Sacroiliac joint pain Strep pharyngitis Unspecified asthma, uncomplicated (11/20/12) Past Family History Family History Father Coronary heart disease Other Family history of heart attack Past Surgical History Surgical History History of laparoscopy Hx of tonsillectomy Social History Smoking Status: Current every day smoker tobacco type: cigarettes Smoking cigarettes per day: 2-3 Do You Dip or Chew Tobacco: No Hx Alcohol Use: No Hx Substance Use: Yes Last Used Substance Other:: In er pt admitted to using iv drugs, currently den yareli use at this time Physical Exam Vital Signs Last Vital Signs Temp 36.8 C 12/23/21 12:34 Pulse 75 12/23/21 12:34 Resp 18 12/23/21 12:34 BP 106/69 12/23/21 12:34 Pulse Ox 98 12/23/21 12:34 O2 Del Method 12/23/21 12:34 Testing Laboratory Results 12/23/21 08:33 12/23/21 08:33 PT 11.4 Seconds (9.0-12.0) 12/18/21 13:20 INR 1.1 (0.9-1.1) 12/18/21 13:20 APTT 30.1 Seconds (21.0-31.0) 12/18/21 13:20 Urine Color Yellow 12/18/21 18:41 Urine Appearance Clear (Clear) 12/18/21 18:41 Urine pH 6.5 (4.5-7.5) 12/18/21 18:41 Ur Specific [place] > 1.045 (1.000-1.030) H 12/18/21 18:41 Urine Protein Trace (Negative) H 12/18/21 18:41 Urine Glucose (UA) Trace (Negative) H 12/18/21 18:41 Urine Ketones 1+ (Negative) H 12/18/21 18:41 Urine Nitrite Negative (Negative) 12/18/21 18:41 Ur Leukocyte Esterase Negative (Negative) 12/18/21 18:41 Urine WBC (Auto) 1-5 /hpf (0-5) 12/18/21 18:41 Urine RBC (Auto) 0-4 /hpf (0-4) 12/18/21 18:41 U Hyaline Cast (Auto) 1-5 /lpf (0-5) 12/18/21 18:41 U Epithel Cells (Auto) 20-30 /lpf (0-5) H 12/18/21 18:41 Urine Bacteria (Auto) Negative (Negative) 12/18/21 18:41 12/19/21 18:44 Aerobic Blood Culture - Preliminary Blood No growth in Aerobic bottle after 48 hours. Anaerobic Blood Culture - Preliminary No growth in Anaerobic bottle after 48 hours. 12/19/21 18:44 Aerobic Blood Culture - Preliminary Blood No growth in Aerobic bottle after 48 hours. Anaerobic Blood Culture - Preliminary No growth in Anaerobic bottle after 48 hours. 12/18/21 14:22 Aerobic Blood Culture - Final Blood Staphylococcus aureus Anaerobic Blood Culture - Final Staphylococcus aureus 12/18/21 13:20 Aerobic Blood Culture - Final Blood Staphylococcus aureus Anaerobic Blood Culture - Final Staphylococcus aureus 12/23/21 12/23/21 12:26 12:07 POC Ur Test NEG Pending
[2021-12-23] MEDS ORDERED: HYDROmorphone INJ 2 MG/ML SYR/VIAL ONE (13:36)
--- NOTE | 2021-12-23 14:11 | Operative Report ---
Post Operative Report Pre & Post Diagnosis Operation Date: 12/23/21 11:50 <No data on this case meets the specified criteria> I identified the patient and participated in the time-out.: Yes Procedure Operation Date: 12/23/21 11:50 Actual Procedures Lumbar decompression L5-S1 with evacuation of epidural abscess. Surgeon Franco Sage, Content Development Manager None Estimated Blood Loss 30 Findings Consistent with Post-Op Diagnosis Specimens Cultures were obtained of the epidural space. Indications This is a 26-year-old female that presents with evidence of infection and dete rmined to have an epidural abscess. As her symptoms continued to be limiting in nature consistent with radiculopathy and pain back pain she underwent urgent lumbar decompression and evacuation of epidural abscess. Description of Procedure Patient was met with identified informed consent obtained. Patient was then taken to the operative suite underwent a patient placed in a prone position the Cliff table top of the [place] frame. All bony prominences well-padded eyes inspected to ensure no external pressure placed upon the. This point lumbar spine was prepped and draped no sterile fashion. With assistance of fluoroscopy defy the 5 1 disc base and a midline incision was created overlying his region. Sharp dissection with assisted Bovie cautery was performed down to and exposing the interlaminar space at L5-S1. Self-retaining tractors placed. Midline decompression was then performed with excision of the ligamentum flavum on the left to expose obvious inflammation and large pocket of gross purulence. The area was copiously irrigated explored to ensure off fluid was addressed. Cultures were obtained. Approximately 3 to 4 cc of stimulant beads impregnated with vancomycin gentamicin were placed about the incision. 15 round GREGG drain inserted. The incision was then closed with 1 Vicryl to fascia 2-0 Vicryl subcutaneously and 4 Monocryl for final skin closure. Steri-Strip sterile dressings placed. Patient waken taken PACU stable condition. I attest to the content of the Intraoperative Record and any orders documented therein. Any exceptions are noted below.
--- NOTE | 2021-12-23 14:18 | Fluoroscopy Report ---
FL spine 1V any level CLINICAL HISTORY: LUMBAR DECOMPRESSION TECHNIQUE: 1 views were obtained with the C-arm in the OR with the above procedure. Total fluoroscopy time was 4.4 seconds. Total skin dose was 2.1 mGy. Comparison: None available at the time of this dictation. FINDINGS/IMPRESSION: Intraoperative images were obtained of L5-S1 decompression. Please correlate with intraoperative fluoroscopy and operative report. ACT 112: Negative or not required by law. Electronically signed by: Bert Alba M.D. 12/23/2021 2:16 PM
--- NOTE | 2021-12-23 14:54 | Anesthesiology Progress Note ---
Date of Service December 23, 2021 Anesthesia Post Procedure Vital Signs Vital Signs: Temp Pulse Pulse Resp BP Pulse Ox O2 Del Method 12/23/21 14:45 36.6 C 67 12 106/74 100 Room Air 12/23/21 14:35 67 9 L 111/80 100 Oxymask 12/23/21 14:25 70 12 112/75 100 Oxymask 12/23/21 14:16 36.5 C 90 13 122/84 100 Oxymask 12/23/21 12:34 36.8 C 75 18 106/69 98 Room Air 12/23/21 07:16 36.6 C 75 16 94/59 L 96 Room Air 12/22/21 21:19 36.8 C 86 16 101/68 96 Room Air O2 Flow Rate 12/23/21 14:45 12/23/21 14:35 5 12/23/21 14:25 5 12/23/21 14:16 5 12/23/21 12:34 12/23/21 07:16 12/22/21 21:19 Pain Intensity Lower Back: Pain Intensity: 6 Head: Pain Intensity: 8 Transfer of Care Handoff Completed per policy Notes Mental Status: alert / awake / arousable Patient Amnestic to Procedure: Yes Nausea / Vomiting: adequately controlled Pain: adequately controlled Airway Patency, RR, SpO2: stable & adequate BP & HR: stable & adequate Hydration State: stable & adequate Anesthetic Complications: no major complications apparent
[2021-12-23] MEDS ORDERED: LORazepam 0.5 MG in SYRINGE 0.25 ML IV PRN (15:27)
[2021-12-23] MEDS ORDERED: HYDROmorphone INJ 1 MG/ML SYRINGE IV PRN (15:27)
[2021-12-23] MEDS ORDERED: MAGNESIUM HYDROXIDE SUSP 30 ML UDC PO PRN (15:27)
[2021-12-23] MEDS ORDERED: PROMETHAZINE HCL 12.5 MG in SODIUM CHLORIDE 0.9% 50 ML IV PRN (15:27)
[2021-12-23] MEDS ORDERED: ALUMINUM/MAGNESIUM SUSP 30 ML UDC PO PRN (15:27)
[2021-12-23] MEDS ORDERED: ONDANSETRON 4 MG OD TAB PO PRN (15:27)
[2021-12-23] MEDS ORDERED: FAMOTIDINE 20 MG TAB PO PRN (15:27)
[2021-12-23] MEDS ORDERED: NALOXONE HCL 0.4 MG/1 ML VIAL/CARP IV PRN (15:27)
[2021-12-23] MEDS ORDERED: bisacodyL 10 MG SUPP PR PRN (15:27)
[2021-12-23] MEDS ORDERED: diphenhydrAMINE Capsule 25 MG CAP PO PRN (15:27)
[2021-12-23] MEDS ORDERED: HYDROmorphone INJ 0.5 MG/0.5 ML SYR IV PRN (15:27)
[2021-12-23] MEDS ORDERED: METOCLOPRAMIDE HCL INJ 5 MG/ML 2 ML VIAL IV PRN (15:27)
[2021-12-23] MEDS ORDERED: ACETAMINOPHEN 1,000 MG/100 ML VIAL IV PRN (15:27)
[2021-12-23] MEDS ORDERED: hydrOXYzine HCl 25 MG TAB PO PRN (15:27)
[2021-12-23] MEDS ORDERED: SOD PHOSPHATE/SOD BIPHOSPHATE ENEMA 132 ML BTL PR PRN (15:27)
[2021-12-23] MEDS: LACTATED RINGER'S 1,000 ML IV SCH (15:51)
--- NOTE | 2021-12-23 18:08 | Hospitalist Progress Note ---
Date of Service December 23, 2021 Assessment & Plan (1) Gram-positive cocci bacteremia: (2) Abscess in epidural space of lumbar spine: (3) IVDU (intravenous drug user): Plan: 26-year-old lady with history of IV drug abuse who presented to the ER 12/18 with complaint of worsening left low back pain associated with fever on and off [maximum measured 103F] for 2 days CLINICAL RESEARCH SCIENTIST. Of note, patient reports injecting ecstasy and fentanyl every couple of weeks, last dose of both within 1 week prior to arrival per patient. She is being managed for the following: #. MSSA bacteremia #. 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 12/19 lumbar spine MRI: Discitis and osteomyelitis at L5-S1 with large epidural abscess posterior to the L5 and S1 segments. Large disc protrusion is also present at this level. Admitting U tox positive for methamphetamines/opiates/benzodiazepines. Other admitting imaging CTA chest/CT abdomen pelvis and L-spine CT reviewed. Continue with cefazolin 12/19 a.m. Patient with urinary incontinence and radicular pain to back of left thigh up to the knee. Orthospine on board, for OT today. s/p Lumbar decompression L5-S1 with evacuation of epidural abscess by Dr. Sage on 12/23 DVT px and PT/OT per orthospine. Pain Mx consulted. Incentive spirometer. ID consulted, await recommendation. Due to her history, avoid opiate pain meds. Patient counseled against drug abuse, patient voiced understanding. Pain management with Tylenol, lidocaine patch, heat application, ketorolac, Flexeril, voltaren gel. Patient afebrile last 3 days, vitals better. DVT prophylaxis: per ortho Sx. Full code 12/20: Patient's mother updated over the phone conversation, answered all her questions to her full satisfaction. Admission and Anticipated Discharge Date Admission Date: December 19, 2021 Subjective Patient seen and examined at bedside as a follow-up of bacteremia, abscess in epidural space of lumbar spine, lumbar spine osteomyelitis. Patient was lying in bed, on room air, NAD, no new acute events overnight. Patient reports ongoing urinary incontinence, patient is on purewick catheter. Patient reports left low back pain radiating towards her back of left thigh, it is better controlled today. Patient on Tylenol/lidocaine patch/ketorolac/voltaren gel/heat pad for pain Mx, avoiding opiates given her patient history. Motor strength in all 4 extremities 5/5. Denies fever but reports sweats overnight still. Denies chest pain or shortness of breath or nausea or vomiting or belly pain. Physical Exam Physical Exam: GENERAL: Alert and oriented x3. NAD, on RA. HEENT: No pallor, no icterus. Pupils equal, round and reactive to light. Oral mucosa moist. NECK: No JVD, no neck masses. HEART: S1 and S2 heard. Regular rate and rhythm. No murmur, no gallop. RESPIRATORY SYSTEM: Normal AP diameter. No accessory muscle use. No wheezing, no crackles. ABDOMEN: Soft, bowel sounds present, nontender, no distention. CENTRAL NERVOUS SYSTEM: No facial droop. Speech is clear. Obeys simple commands. Moves extremities. Power 5/5 all extremities EXTREMITIES: No edema, no erythema seen. PUrewick catheter in place. Results & Data Results & Data ([facility]) Vital Signs (Past 12 Hours) Vital Signs Temp Pulse Pulse Resp BP Pulse Ox O2 Del Method 12/23/21 17:29 36.5 C 101 H 16 92/56 L 96 Room Air 12/23/21 16:32 36.7 C 67 16 101/68 97 Room Air 12/23/21 16:04 36.7 C 68 15 105/68 97 Room Air 12/23/21 15:30 36.7 C 76 16 100/65 98 Room Air 12/23/21 15:05 71 14 109/70 96 Room Air 12/23/21 14:55 75 14 113/71 96 Room Air 12/23/21 14:45 36.6 C 67 12 106/74 100 Room Air 12/23/21 14:35 67 9 L 111/80 100 Oxymask 12/23/21 14:25 70 12 112/75 100 Oxymask 12/23/21 14:16 36.5 C 90 13 122/84 100 Oxymask 12/23/21 12:34 36.8 C 75 18 106/69 98 Room Air 12/23/21 07:16 36.6 C 75 16 94/59 L 96 Room Air O2 Flow Rate 12/23/21 17:29 12/23/21 16:32 12/23/21 16:04 12/23/21 15:30 12/23/21 15:05 12/23/21 14:55 12/23/21 14:45 12/23/21 14:35 5 12/23/21 14:25 5 12/23/21 14:16 5 12/23/21 12:34 12/23/21 07:16
[2021-12-23] MEDS: LIDOCAINE 5% 1 PATCH TD SCH (19:37)
[2021-12-23] MEDS: DOCUSATE SODIUM/SENNA 50/8.6MG TAB PO SCH (19:42)
[2021-12-24] MEDS: DICLOFENAC SOD 1% GEL 100 GM TUBE EXT SCH ×4 (00:04→17:52)
[2021-12-24] MEDS: ceFAZolin 2000MG 2,000 MG/15 ML SYR IV SCH ×3 (00:05→15:56)
[2021-12-24] MEDS: KETOROLAC TROMETHAMINE 15 MG/ML VIAL IV PRN ×4 (00:58→19:46)
[2021-12-24] MEDS: LACTATED RINGER'S 1,000 ML IV SCH (01:02)
[2021-12-24] MEDS: CYCLOBENZAPRINE HCL 10 MG TAB PO PRN ×2 (04:58→13:32)
[2021-12-24] MEDS: POLYETHYLENE (MIRALAX) 17 GM PACK PO SCH ×3 (05:00→17:52)
[2021-12-24] MEDS: LORazepam 0.5 MG TAB PO PRN ×2 (05:02→12:18)
--- NOTE | 2021-12-24 08:41 | Orthopedic Progress Note ---
Date of Service December 24, 2021 Assessment & Plan (1) Abscess in epidural space of lumbar spine: Plan: At this time would like to initiate ambulation as tolerated. I would provide her with a brace to wear when out of bed. We will maintain the GREGG drain for now. Admission and Anticipated Discharge Date Admission Date: December 19, 2021 Subjective Leg pain is improved she is struggling with back spasms. Physical Exam Physical Exam: On exam she has good strength testing. She appears comfortable. Results & Data ([facility]) Vital Signs (Past 12 Hours) Vital Signs Temp Pulse Resp BP Pulse Ox O2 Del Method 12/24/21 06:52 37 C 69 16 111/75 98 Room Air 12/24/21 04:27 37.5 C 82 16 98/64 L 96 Room Air 12/23/21 23:00 37.3 C 89 16 91/56 L 96 Room Air
[2021-12-24 08:54] LABS: Hemoglobin 10.4 g/dl (12.0-16.0); Mean Corpuscular Hgb Conc 33.5 g/dL (32.0-36.0); Mean Corpuscular Volume 95.4 fL (80.0-100.0); Mean Platelet Volume 9.3 fL (9.4-12.3); Platelet Count 368 K/uL (130-400); RDW Coefficient of Variation 11.4 % (11.5-14.5); RDW Standard Deviation 39.7 fL (36.4-46.3); Red Blood Count 3.25 M/uL (3.93-5.22)
[2021-12-24 09:20] LABS: BUN Creatinine Ratio 24.6 (10-20); Calcium 8.2 mg/dl (8.5-10.1); Creatinine Clr Calc Pharmacy 112.2 ml/min; Est GFR (African American) 140.2 ml/min; Potassium 4.2 mmol/L (3.5-5.1)
[2021-12-24] MEDS: ACETAMINOPHEN 500 MG TAB PO PRN (11:58)
--- NOTE | 2021-12-24 18:55 | Hospitalist Progress Note ---
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 She is being managed for the following: #. MSSA bacteremia #. 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 12/19 lumbar spine MRI: Discitis and osteomyelitis at L5-S1 with large epidural abscess posterior to the L5 and S1 segments. Large disc protrusion is also present at this level. Admitting U tox positive for methamphetamines/opiates/benzodiazepines. Other admitting imaging CTA chest/CT abdomen pelvis and L-spine CT reviewed. Continue with cefazolin 12/19 a.m. Patient with urinary incontinence and radicular pain to back of left thigh up to the knee. Orthospine on board - s/p Lumbar decompression L5-S1 with evacuation of epidural abscess by Dr. Sage on 12/23 DVT px and PT/OT per orthospine. Pain Mx consulted. Incentive spirometer. ID consulted, await recommendation. Patient counseled against drug abuse, patient voiced understanding. Pain management with Tylenol, lidocaine patch, heat application, ketorolac, Fl exeril, voltaren gel. Patient afebrile last 4 days, vitals stable. DVT prophylaxis: per ortho Sx. Full code 12/20: Patient's mother updated over the phone conversation, answered all her questions to her full satisfaction. Admission and Anticipated Discharge Date Admission Date: December 19, 2021 Subjective Patient seen and examined at bedside as a follow-up of bacteremia, abscess in epidural space of lumbar spine, lumbar spine osteomyelitis. Patient was lying in bed, on room air, NAD, no new acute events overnight. Patient is a status post L5-S1 decompression with evacuation of epidural abscess by Dr. Sage on 12/23/2021. Patient reports improvement in her urinary continence, reports improvement in her low back pain and radicular LLE pain. Patient reports low back pain at operative site under control with pain medication. Motor strength in all 4 extremities 5/5. Denies chest pain or shortness of breath or nausea or vomiting or belly pain. Physical Exam Physical Exam: GENERAL: Alert and oriented x3. NAD, on RA. HEENT: No pallor, no icterus. Pupils equal, round and reactive to light. Oral mucosa moist. NECK: No JVD, no neck masses. HEART: S1 and S2 heard. Regular rate and rhythm. No murmur, no gallop. RESPIRATORY SYSTEM: Normal AP diameter. No accessory muscle use. No wheezing, no crackles. ABDOMEN: Soft, bowel sounds present, nontender, no distention. CENTRAL NERVOUS SYSTEM: No facial droop. Speech is clear. Obeys simple commands. Moves extremities. Power 5/5 all extremities EXTREMITIES: No edema, no erythema seen. Low back with clean dressing without soakage. PUrewick catheter in place. Results & Data Results & Data ([facility]) Vital Signs (Past 12 Hours) Vital Signs Temp Pulse Resp BP Pulse Ox O2 Del Method 12/24/21 14:34 37.2 C 82 16 109/70 97 Room Air 12/24/21 11:24 37 C 78 16 103/66 98 Room Air 12/24/21 06:52 37 C 69 16 111/75 98 Room Air
[2021-12-24] MEDS: DOCUSATE SODIUM/SENNA 50/8.6MG TAB PO SCH (20:28)
[2021-12-24] MEDS: LIDOCAINE 5% 1 PATCH TD SCH (20:28)
[2021-12-25] MEDS: ceFAZolin 2000MG 2,000 MG/15 ML SYR IV SCH ×3 (00:22→16:31)
[2021-12-25] MEDS: POLYETHYLENE (MIRALAX) 17 GM PACK PO SCH ×4 (00:22→18:03)
[2021-12-25] MEDS: DICLOFENAC SOD 1% GEL 100 GM TUBE EXT SCH ×4 (00:23→18:15)
[2021-12-25] MEDS: KETOROLAC TROMETHAMINE 15 MG/ML VIAL IV PRN ×3 (02:15→14:11)
[2021-12-25] MEDS: CYCLOBENZAPRINE HCL 10 MG TAB PO PRN ×2 (08:15→20:27)
[2021-12-25 08:26] LABS: Hematocrit (blood only) 30.9 % (34.1-44.9); Hemoglobin 9.8 g/dl (12.0-16.0); Mean Corpuscular Hgb Conc 31.7 g/dL (32.0-36.0); Mean Corpuscular Volume 97.8 fL (80.0-100.0); Mean Platelet Volume 8.9 fL (9.4-12.3); Platelet Count 351 K/uL (130-400); RDW Coefficient of Variation 11.5 % (11.5-14.5); RDW Standard Deviation 41.1 fL (36.4-46.3); Red Blood Count 3.16 M/uL (3.93-5.22); White Blood Count 5.92 K/ul (4.8-10.8)
[2021-12-25 09:11] LABS: BUN Creatinine Ratio 21.7 (10-20); Calcium 8.2 mg/dl (8.5-10.1); Est GFR (African American) 146.8 ml/min; Est GFR (Non-African American) 126.7 ml/min; Magnesium 1.8 mg/dl (1.7-2.4); Phosphorus 3.7 mg/dl (2.5-4.9); Potassium 4.1 mmol/L (3.5-5.1)
--- NOTE | 2021-12-25 11:50 | Orthopedic Progress Note ---
Date of Service December 25, 2021 Assessment & Plan (1) Abscess in epidural space of lumbar spine: Plan: This time we will continue to maintain the GREGG drain monitor progress hopefully just continue drain and dressing the next day or so. Admission and Anticipated Discharge Date Admission Date: December 19, 2021 Subjective Patient's back pain is controlled left leg pain markedly improved. She has been using her brace and feels that this is providing some relief when ambulating. Physical Exam Physical Exam: Patient is in bed at this time. She appears comfortable. Is good strength testing. Results & Data ([facility]) Vital Signs (Past 12 Hours) Vital Signs Temp Pulse Resp BP Pulse Ox O2 Del Method 12/25/21 07:33 37.0 C 84 14 96/61 L 99 Room Air
[2021-12-25] MEDS: ACETAMINOPHEN 500 MG TAB PO PRN ×2 (14:11→23:02)
--- NOTE | 2021-12-25 17:25 | Hospitalist Progress Note ---
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 She is being managed for the following: #. MSSA bacteremia #. Lumbar spine discitis and osteomyelitis and epidural abscess 12/18 blood culture positive for MSSA 12/19 blood culture [after 2 doses of IV cefazolin]: No growth 12/19 echo with no valvular abnormality. 12/19 lumbar spine MRI: Discitis and osteomyelitis at L5-S1 with large epidural abscess posterior to the L5 and S1 segments. Large disc protrusion is also present at this level. 12/23 Operative Cx: MSSA Admitting U tox positive for methamphetamines/opiates/benzodiazepines. Other admitting imaging CTA chest/CT abdomen pelvis and L-spine CT reviewed. Continue with cefazolin 12/19 a.m. Patient with urinary incontinence and radicular pain to back of left thigh up to the knee --> improved after Sx. Orthospine on board - s/p Lumbar decompression L5-S1 with evacuation of epidural abscess by Dr. Sage on 12/23 DVT px and PT/OT per orthospine. Pain Mx consulted. Incentive spirometer. ID consulted, await recommendation. Patient counseled against drug abuse, patient voiced understanding. Pain management with Tylenol, lidocaine patch, heat application, ketorolac, Flexeril, voltaren gel. Patient afebrile last 5 days, vitals stable. DVT prophylaxis: per ortho Sx. Full code 12/20: Patient's mother updated over the phone conversation, answered all her questions to her full satisfaction. Admission and Anticipated Discharge Date Admission Date: December 19, 2021 Subjective Patient seen and examined at bedside as a follow-up of bacteremia, abscess in epidural space of lumbar spine, lumbar spine osteomyelitis. Patient was lying in bed, on room air, NAD, no new acute events overnight. Patient is a status post L5-S1 decompression with evacuation of epidural abscess by Dr. Sage on 12/23/2021. Patient w/ no urinary continence, reports improvement in her low back pain and radicular LLE pain. Patient reports low back pain at operative site under control with pain medication. Motor strength in all 4 extremities 5/5. Denies chest pain or shortness of breath or nausea or vomiting or belly pain. Physical Exam Physical Exam: GENERAL: Alert and oriented x3. NAD, on RA. HEENT: No pallor, no icterus. Pupils equal, round and reactive to light. Oral mucosa moist. NECK: No JVD, no neck masses. HEART: S1 and S2 heard. Regular rate and rhythm. No murmur, no gallop. RESPIRATORY SYSTEM: Normal AP diameter. No accessory muscle use. No wheezing, no crackles. ABDOMEN: Soft, bowel sounds present, nontender, no distention. CENTRAL NERVOUS SYSTEM: No facial droop. Speech is clear. Obeys simple commands. Moves extremities. Power 5/5 all extremities EXTREMITIES: No edema, no erythema seen. Low back with clean dressing without soakage. GREGG drain with serosanguineous collection Results & Data Results & Data ([facility]) Vital Signs (Past 12 Hours) Vital Signs Temp Pulse Resp BP Pulse Ox O2 Del Method 12/25/21 15:14 36.9 C 76 14 109/71 98 Room Air 12/25/21 07:33 37.0 C 84 14 96/61 L 99 Room Air
[2021-12-25] MEDS: LIDOCAINE 5% 1 PATCH TD SCH ×2 (20:25→21:12)
[2021-12-25] MEDS: DOCUSATE SODIUM/SENNA 50/8.6MG TAB PO SCH (20:25)
[2021-12-26] MEDS: POLYETHYLENE (MIRALAX) 17 GM PACK PO SCH ×3 (00:06→12:44)
[2021-12-26] MEDS: ceFAZolin 2000MG 2,000 MG/15 ML SYR IV SCH ×4 (00:06→23:12)
[2021-12-26] MEDS: DICLOFENAC SOD 1% GEL 100 GM TUBE EXT SCH ×5 (00:06→23:12)
[2021-12-26] MEDS: CYCLOBENZAPRINE HCL 10 MG TAB PO PRN (06:00)
[2021-12-26] MEDS: ACETAMINOPHEN 500 MG TAB PO PRN (07:46)
[2021-12-26] MEDS ORDERED: KETOROLAC TROMETHAMINE 15 MG/ML VIAL IV PRN (08:43)
[2021-12-26] MEDS ORDERED: IBUPROFEN 600 MG TAB PO PRN (08:49)
[2021-12-26 09:44] LABS: Hematocrit (blood only) 32.3 % (34.1-44.9); Hemoglobin 10.8 g/dl (12.0-16.0); Mean Corpuscular Hemoglobin 31.8 pg (25.0-34.0); Mean Corpuscular Hgb Conc 33.4 g/dL (32.0-36.0); Mean Platelet Volume 8.8 fL (9.4-12.3); Platelet Count 382 K/uL (130-400); RDW Coefficient of Variation 11.4 % (11.5-14.5); RDW Standard Deviation 39.8 fL (36.4-46.3); White Blood Count 6.61 K/ul (4.8-10.8)
--- NOTE | 2021-12-26 14:56 | Hospitalist Progress Note ---
Date of Service December 26, 2021 Assessment & Plan (1) Gram-positive cocci bacteremia: (2) Abscess in epidural space of lumbar spine: (3) IVDU (intravenous drug user): Plan: per previous attending notes with addendum: 26-year-old lady with history of IV drug abuse who presented to the ER 12/18 with complaint of worsening left low back pain associated with fever on and off she is for 2 days [employer]. Of note, patient reports injecting ecstasy and fentanyl every couple of weeks, last dose of both within 1 week prior to arrival per patient. She is being managed for the following: #. MSSA bacteremia #. Lumbar spine discitis and osteomyelitis and epidural abscess 12/18 blood culture positive for MSSA 12/19 blood culture [after 2 doses of IV cefazolin]: No growth 12/19 echo with no valvular abnormality. 12/19 lumbar spine MRI: Discitis and osteomyelitis at L5-S1 with large epidural abscess posterior to the L5 and S1 segments. Large disc protrusion is also present at this level. 12/23 Operative Cx: MSSA Admitting U tox positive for methamphetamines/opiates/benzodiazepines. Other admitting imaging CTA chest/CT abdomen pelvis and L-spine CT reviewed. Continue with cefazolin 12/19 a.m. Patient with urinary incontinence and radicular pain to back of left thigh up to the knee --> improved after Sx. [facility]ospine on board - s/p Lumbar decompression L5-S1 with evacuation of epidural abscess by Dr. Sage on 12/23 DVT px and PT/OT per orthospine. Pain Mx consulted. Incentive spirometer. ID consulted, await recommendation. Patient counseled against drug abuse, patient voiced understanding. Pain management with Tylenol, lidocaine patch, heat application, ketorolac, Flexeril, voltaren gel. Patient afebrile last 5 days, vitals stable. 12/26: patient remains stable overall lumbar spine drain removed today awaiting ID recommendations continue IV Cefazoline q8h patient leaning more towards IV abx thru daily MT[facility] visits Tylenol q8h, Ibuprofen PRN PT/OT evaluation DVT prophylaxis: per ortho Sx. Full code plan of care discussed with patient in detail and at length all questions answered she is understanding, agreeable, comfortable with the plan of care Admission and Anticipated Discharge Date Admission Date: December 19, 2021 Subjective ff up for MSSA bacteremia, lumbar discitis, osteomyelitis, etc patient seen and examined with MCKENZIE Calix at bedside throughout whole encounter seen resting in bed, comfortable sitting up states she feels better today able to ambulate to the bathroom with less back pain Ibuprofen, Tylenol helping with back pain no chest pain, dyspnea, palpitations, dizziness no fever/chills, abdominal pain, n/v, diarrhea appetite is good no other symptoms Review of Systems Review of Systems: all noted and negative except for above Physical Exam Physical Exam: General- oriented x 3, not in distress, speaks in sentences with no effort or accessory muscle use Head- atraumatic Eyes- PERRL, EOMI, anicteric ENT- oropharynx clear Neck- supple, no JVD, no adenopathy, no thyromegaly; carotids +2/2, no bruits appreciated Lungs- clear to auscultation bilaterally, no rales/wheezes Heart- normal rate, regular rhythm; no murmur, no gallop, no rub appreciated Abdomen- normal bowel sounds, nondistended, soft, nontender, no masses or hepatosplenomegaly Extremities- no pretibial edema, no calf tenderness; peripheral pulses intact Back- dressing in place- no bleeding or discharge Neuro- alert, oriented x 3; CN 2-12 grossly intact; motor 5/5 bilaterally;sensation 100% on all extremities; no other gross focal neurologic deficits Skin- warm & dry Results & Data Results & Data ([facility]) Vital Signs (Past 12 Hours) Vital Signs Temp Pulse Resp BP Pulse Ox O2 Del Method 12/26/21 07:44 37.2 C 74 18 113/75 97 Room Air all noted and reviewed including below
[2021-12-26] MEDS: ACETAMINOPHEN 500 MG TAB PO SCH ×2 (16:21→21:12)
[2021-12-26] MEDS: LIDOCAINE 5% 1 PATCH TD SCH (21:12)
[2021-12-26] MEDS: DOCUSATE SODIUM/SENNA 50/8.6MG TAB PO SCH (21:13)
[2021-12-27] MEDS: DICLOFENAC SOD 1% GEL 100 GM TUBE EXT SCH ×2 (05:52→11:55)
[2021-12-27] MEDS: ACETAMINOPHEN 500 MG TAB PO SCH ×2 (05:52→15:03)
[2021-12-27] MEDS: ceFAZolin 2000MG 2,000 MG/15 ML SYR IV SCH ×2 (08:39→15:03)
--- NOTE | 2021-12-27 09:50 | Orthopedic Progress Note ---
Date of Service December 27, 2021 Assessment & Plan (1) Abscess in epidural space of lumbar spine: Plan: At this time she is stable from an orthopedic standpoint for discharge. I would like to see her in the office in the next week or 2 to assess her incision. Admission and Anticipated Discharge Date Admission Date: December 19, 2021 Subjective Back and leg pain markedly improved. She has been ambulating without difficulty. Physical Exam Physical Exam: On exam she appears quite comfortable. Is good strength testing. Results & Data ([facility]) Vital Signs (Past 12 Hours) Vital Signs Temp Pulse Resp BP Pulse Ox O2 Del Method 12/27/21 08:05 37.1 C 115 H 18 131/81 97 Room Air 12/26/21 22:46 36.9 C 104 H 18 134/91 100 Room Air
[2021-12-27 10:05] LABS: BUN Creatinine Ratio 13.8 (10-20); Calcium 9.8 mg/dl (8.5-10.1); Creatinine Clr Calc Pharmacy 119.1 ml/min; Est GFR (Non-African American) 123.4 ml/min; Potassium 3.9 mmol/L (3.5-5.1)
[2021-12-27] MEDS ORDERED: DAPTOmycin 500 MG in SYRINGE 0 ML IV STA (16:37)
[2021-12-27] MEDS ORDERED: DAPTOmycin 350 MG in SYRINGE 0 ML IV STA ×2 (16:53→16:58)
--- NOTE | 2021-12-27 17:27 | Hospitalist Progress Note ---
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 She is being managed for the following: #. MSSA bacteremia #. Lumbar spine discitis and osteomyelitis and epidural abscess 12/18 blood culture positive for MSSA 12/19 blood culture [after 2 doses of IV cefazolin]: No growth 12/19 echo with no valvular abnormality. 12/19 lumbar spine MRI: Discitis and osteomyelitis at L5-S1 with large epidural abscess posterior to the L5 and S1 segments. Large disc protrusion is also present at this level. 12/23 Operative Cx: MSSA Admitting U tox positive for methamphetamines/opiates/benzodiazepines. Other admitting imaging CTA chest/CT abdomen pelvis and L-spine CT reviewed. Continue with cefazolin 12/19 a.m. Patient with urinary incontinence and radicular pain to back of left thigh up to the knee --> improved after Sx. Orthospine on board - s/p Lumbar decompression L5-S1 with evacuation of epidural abscess by Dr. Sage on 12/23 DVT px and PT/OT per orthospine. Pain Mx consulted. Incentive spirometer. ID consulted, await recommendation. Patient counseled against drug abuse, patient voiced understanding. Pain management with Tylenol, lidocaine patch, heat application, ketorolac, Flexeril, voltaren gel. Patient afebrile last 5 days, vitals stable. 12/26: patient remains stable overall lumbar spine drain removed today awaiting ID recommendations continue IV Cefazoline q8h patient leaning more towards IV abx thru daily [facility] visits Tylenol q8h, Ibuprofen PRN PT/OT evaluation DVT prophylaxis: per ortho Sx. Full code plan of care discussed with patient in detail and at length all questions answered she is understanding, agreeable, comfortable with the plan of care Admission and Anticipated Discharge Date Admission Date: December 19, 2021 Results & Data Results & Data ([facility]) Vital Signs (Past 12 Hours) Vital Signs Temp Pulse Resp BP Pulse Ox O2 Del Method 12/27/21 16:13 36.8 C 106 H 18 141/97 H 100 Room Air 12/27/21 08:05 37.1 C 115 H 18 131/81 97 Room Air
--- NOTE | 2021-12-27 17:48 | Hospitalist Progress Note ---
Date of Service December 27, 2021 Assessment & Plan (1) Gram-positive cocci bacteremia: (2) Abscess in epidural space of lumbar spine: (3) IVDU (intravenous drug user): Plan: per previous attending notes with addendum: 26-year-old lady with history of IV drug abuse who presented to the ER 12/18 with complaint of worsening left low back pain associated with fever on and off she is for 2 days [employer]. Of note, patient reports injecting ecstasy and fentanyl every couple of weeks, last dose of both within 1 week prior to arrival per patient. She is being managed for the following: #. MSSA bacteremia #. Lumbar spine discitis and osteomyelitis and epidural abscess 12/18 blood culture positive for MSSA 12/19 blood culture [after 2 doses of IV cefazolin]: No growth 12/19 echo with no valvular abnormality. 12/19 lumbar spine MRI: Discitis and osteomyelitis at L5-S1 with large epidural abscess posterior to the L5 and S1 segments. Large disc protrusion is also present at this level. 12/23 Operative Cx: MSSA Admitting U tox positive for methamphetamines/opiates/benzodiazepines. Other admitting imaging CTA chest/CT abdomen pelvis and L-spine CT reviewed. Continue with cefazolin 12/19 a.m. Patient with urinary incontinence and radicular pain to back of left thigh up to the knee --> improved after Sx. Orthospine on board - s/p Lumbar decompression L5-S1 with evacuation of epidural abscess by Dr. Sage on 12/23 DVT px and PT/OT per orthospine. Pain Mx consulted. Incentive spirometer. ID consulted, await recommendation. Patient counseled against drug abuse, patient voiced understanding. Pain management with Tylenol, lidocaine patch, heat application, ketorolac, Flexeril, voltaren gel. Patient afebrile last 5 days, vitals stable. 12/27: received IV Cefazolin q8h patient remains stable overall lumbar spine drain removed discussed with ID Dr. Fuller over the phone recommend Daptomycin 500mg IV daily x 5 weeks weekly CBC, CMP follow up with Inessa MAJANO in 2 weeks follow up with Dr. Sage in 1-2 weeks Tylenol PRN patient not willing to stay to receive IV Daptomycin in AM risks involved with missing Daptomycin explained, including worsening of infection, , etc patient verbalized understanding and agreement Daptomycin IV given prior to patient's discharge plan of care discussed with patient and her mother in detail and at length all questions answered they are understanding, agreeable, comfortable with the plan of care Admission and Anticipated Discharge Date Admission Date: December 19, 2021 Subjective ff up for MSSA bacteremia, etc seen resting in bed, comfortable mother at bedside throughout whole encounter states she feels much better overall back pain much better ambulating better with no issues no chest pain, dyspnea, palpitations, dizziness no other symptoms states she is ready and would like to be discharged today Review of Systems Review of Systems: all noted and negative except for above Physical Exam Physical Exam: General- oriented x 3, not in distress, speaks in sentences with no effort or accessory muscle use Eyes- anicteric Neck- no JVD Lungs- clear breath sounds bilaterally, no rales/wheezes Heart- normal rate, regular rhythm; no murmurs Abdomen- normal bowel sounds, nondistended, soft, nontender Extremities- no pretibial edema, no calf tenderness Back- dressing in place no bleeding/discharge Neuro- alert, oriented x 3; no gross focal neurologic deficits Skin- warm & dry Results & Data Results & Data ([facility]) Vital Signs (Past 12 Hours) Vital Signs Temp Pulse Resp BP Pulse Ox O2 Del Method 12/27/21 16:13 36.8 C 106 H 18 141/97 H 100 Room Air 12/27/21 08:05 37.1 C 115 H 18 131/81 97 Room Air all noted and reviewed including below
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
== END 2021-12-27 18:20 | disposition home or self-care (01) | DRG 853 ==
LOC: ED 13:10 → 3W 13:10 → SUATTDRO 17:13 → 3W 19:23 → SUATTDRO 12-19 09:26